=== PATIENT | male | born 1970 | race Caucasian/White ===

== ENCOUNTER → 2021-02-17 12:40 | Outpatient (CLI) | payer SELFPAY ==
[2021-02-16 16:34] VITALS: BMI 40.0
--- NOTE | 2021-02-17 12:41 | EKG12_ITS ---
Test Reason : PRE OP Blood Pressure : / mmHG Vent. Rate : 052 BPM Atrial Rate : 052 BPM P-R Int : 212 ms QRS Dur : 132 ms QT Int : 446 ms P-R-T Axes : 043 -20 032 degrees QTc Int : 414 ms Sinus bradycardia with 1st degree A-V block Non-specific intra-ventricular conduction block Abnormal ECG Confirmed by ALDAIR MARTINEZ, CASANDRA ([id number]), sports editor JOSÉ PUENTES ([id number]) on 02/21/2021 12:43:08 PM Referred By: Lupillo Gaytan Confirmed By:CASANDRA QUINTEROS MD
== END ==
PROVIDERS: PCP Nurse Practitioner Family; Referring Provider Nurse Practitioner Family; Visit Provider Nurse Practitioner Family
DX: I49.9 Cardiac arrhythmia, unspecified (principal)
CPT/HCPCS: 93005

== ENCOUNTER 2021-03-10 15:15 | Outpatient (RCR) | payer SELFPAY ==
[2021-02-10 13:59] VITALS: BP 160/82; PULSE 50; RESP 18; TEMP 36.1
--- NOTE | 2021-02-10 16:17 | HP.PCM_ITS ---
History of Present Illness Date of Service: 02/10/21 Chief Complaint: Diabetic foot ulcer left heel History of Wound: A 50-year-old white male with a past medical history of diabetes and hypertension who presents to the wound healing center today with complaint of a diabetic foot ulcer to his left heel present for the last 2 months. The patient initially went to the emergency department on 01/24/2021 at [facility] and had a CT of his foot done at that time which showed a soft tissue puncture wound in the heel with no soft tissue gas or radiopaque foreign body and no acute fracture. No lytic or blastic bony lesions seen. His blood work showed an elevated glucose of 244 and his CRP at the time was 0.80. He was placed on Keflex and Bactrim DS and was referred to primary care and or thopedics. He also had a wound culture done and 2 blood cultures which are not available for review at this time. Patient's other records are not available for review either by Dr. Johnson at [facility]. But apparently according to the patient he was given a offloading boot and was referred to wound center for further management. The patient states that he is tolerating his antibiotics well. He denies any systemic signs of infection at this time. The patient states that he follow-up with primary care but would like to consider switching primary care as they did not address his diabetes or place him on any diabetic medications. He is currently on no maintenance medications. Apparently his most recent A1c was 14.5. He does state that he has been utilizing a ointment and covering with gauze to the ulcer. He denies any other acute concerns at this time. Past medical, family, and social history reviewed and not pertinent to the current visit and all other systems reviewed and negative with exception of those listed above. [facility] Medical History (Updated 02/10/21 @ 16:26 by Lupillo Gaytan NP, [employer] PROCESSING [employer]PER[employer]OR-[employer]) Diabetes Diabetic ulcer of left foot HTN (hypertension) Uncontrolled type 2 diabetes mellitus no surgical history ROS Constitutional Constitutional: Reports systems reviewed and no addt'l complaints, except as documented Eyes Eyes: Reports systems reviewed and no addt'l complaints, except as documented ENT HEENT: Reports systems reviewed and no addt'l complaints, except as documented Cardiovascular Cardiovascular: Reports systems reviewed and no addt'l complaints, except as documented Respiratory/Chest Respiratory/Chest: Reports systems reviewed and no addt'l complaints, except as documented Gastrointestinal Gastrointestinal: Reports systems reviewed and no addt'l complaints, except as documented Genitourinary Genitourinary: Reports systems reviewed and no addt'l complaints, except as documented Musculoskeletal Musculoskeletal: Reports systems reviewed and no addt'l complaints, except as documented Integumentary Integumentary: Reports systems reviewed and no addt'l complaints, except as documented Neurologic Neurologic: Reports systems reviewed and no addt'l complaints, except as documented Psychiatric Psychiatric: Reports systems reviewed and no addt'l complaints, except as documented Endocrine Endocrinology: Reports systems reviewed and no addt'l complaints, except as documented Hematologic/Lymphatic Hematologic/Lymphatic: Reports systems reviewed and no addt'l complaints, except as documented Allergic/Immunologic Allergic/Immunologic: Reports systems reviewed and no addt'l complaints, except as documented Vital Signs Vital Signs Vital Signs: 02/10/21 13:59 Temperature 97.0 F L Temperature Source Temporal Pulse Rate 50 L Respiratory Rate 18 Blood Pressure 160/82 H Blood Pressure Mean 108 Blood Pressure Source Monitor Blood Pressure Position Sitting Blood Pressure Location Left Arm Oxygen Delivery Method Room Air Physical Exam Const alert, oriented x3, no apparent distress, healthy appearing and well nourished General Appearance: cooperative Exam Limitations: no limitations HEENT normocephalic HEENT Narrative: Rash present to forehead, chronic Head and Scalp: normal to inspection Mouth: oral and palatal mucosa normal Eyes General Eye: normal appearance of both eyes Resp normal respiratory effort, normal air movement and no use of accessory muscles Effort and Inspection: able to speak in complete sentences Auscultation: clear to auscultation bilaterally Cardio regular rate, regular rhythm, S1 normal heart sound, S2 normal heart sound, no murmurs and peripheral pulses 2+ throughout Palpation: normal PMI Rate: regular rate Heart Sounds: S1 normal and S2 normal GI normal to inspection, nondistended, normoactive bowel sounds, soft to palpation, non-tender and non-distended Palpation: soft Extremity normal to inspection and full ROM General Extremity: normal exam except as noted Skin Skin Narrative: Vera grade 2 diabetic foot ulcer to left heel with large amounts of callus and adherent slough, no signs of obvious infection at this time, no purulent drainage or redness or streaking, after debridement wound bed is beefy red and granular Neuro oriented x3 and moves all extremities Sensorium / Orientation: awake, alert, oriented to person, oriented to place and oriented to time Psych mental status grossly normal, thought process normal and denies hallucinations Appearance: grossly normal Attitude: calm Activity / Motor Behavior: appropriate eye contact Speech: normal speech Thought Process: normal thought process Thought Content: normal thought content Attention / Concentration: attention grossly intact Insight: insight good Judgement: judgement good Debridement Note Debridement Note Post-Debridement Measurements and Additional Note: Post-Debridement Measurements/Treatment - Nurse 1 - General Ulcer Assessment Start: 02/10/21 13:59 Freq: Status: Active Protocol: GENARO Activity Type Activity Date Activity User E-Sign Co-Sign Detail Recorded Client Recorded Date Recorded By Document 02/10/21 13:59 LA [id number] 02/10/21 14:17 LA 02/10/21 13:59 - Today's Visit Information Type of service Initial Visit Arrival Mode Ambulatory Accompanied by self Vital Signs Temperature (97.8 F-99.1 F) 97.0 F L Temperature Source Temporal Pulse Rate (60-100) 50 L Pulse Location Monitor Respiratory Rate (12-18) 18 Respiratory rate source Observation Oxygen Delivery Method Room Air Blood Pressure (90/60-120/80) 160/82 H Blood Pressure Mean 108 Source Monitor Position Sitting Blood Pressure Location Left Arm - Nurse 1 - General Ulcer Measurement Start: 02/10/21 13:59 Freq: Status: Active Protocol: Activity Type Activity Date Activity User E-Sign Co-Sign Detail Recorded Client Recorded Date Recorded By Document 02/10/21 13:59 LA [id number] 02/10/21 14:17 LA 02/10/21 13:59 Wound Center Nurse 1 #1 Left Heel -Current Size (cm) - Length 0.9 -Current Size (cm) - Width 1.0 -Current Size (cm) - Depth 0.3 -Total Square Cm 0.90 -Undermining/Tunneling Yes -Undermining/Tunneling Starts (O'clock 10 ) -Undermining/Tunneling Ends (O'clock) 8 -Maximum Distance (cm) 0.3 -Exudate Amt Medium -Exudate Type Serosanguineous -Wound Margin Thickened & Rolled Under -Granulation Amt Medium (34-66%) -Granulation Quality Pale,[place] -Necrosis Amt Medium (34-66%) -Necrotic Tissue Type Adherent Slough -Texture (Sandra-wound Skin Appearance) Assessed -Moisture (Sandra-wound Skin Appearance) Assessed -Color (Sandra-wound Skin Appearance) Assessed -Temperature (Sandra-wound Skin No Abnormality Appearance) (Pt Warm) -Tenderness on Palpation (Sandra-wound No Skin Appearance) -Ulcer Cleansing Rinsed/ Irrigated with Saline -Foul Odor after Cleansing No -Anesthetic Used 4% Lidocaine Solution Left Calf (cm) 40.5 Left Ankle (cm) 24 Additional Wound Wound debrided: Left diabetic foot ulcer of heel Laterality: Left Type of Debridement: Excisional debridement Anesthesia Used: 5% Lidocaine Gel Depth: Down to and including healthy tissue and in the subcutaneous layer Percentage of wound debrided: 100 Instrument Used: 5mm curette and #15 blade Tissue Removed: Callus, slough, and devitalized tissue Severity: Fat Layer Exposed Amount of bleeding with debridement: Mild Bleeding Controlled with: Pressure Patient tolerated procedure: Patient tolerated procedure well Lab / Micro Data Result Diagrams: 02/10/21 15:44 02/10/21 15:44 Charges/Coding Visit Charges Office Visits / Consults: 18903 OV L4 New Procedures Integumentary 111xxx-113xx: [id number] Beverley subq tissue 20 sq cm/< Assessment/Plan Assessment/Plan (1) Diabetic ulcer of left foot: CODE(S): E11.621 - Type 2 diabetes mellitus with foot ulcer; L97.529 - Non-pressure chronic ulcer of other part of left foot with unspecified severity (2) Uncontrolled type 2 diabetes mellitus: CODE(S): E11.65 - Type 2 diabetes mellitus with hyperglycemia (3) HTN (hypertension): CODE(S): I10 - Essential (primary) hypertension PLAN: Debridement performed today in clinic as annotated above. Moistened silver cell covered with gauze applied. At home wound-care instructions: Moistened silver cell cover with gauze and continue with CAM Walker for offloading. Change dressing once daily or more frequently as needed due to contamination. Wash wounds daily with antibacterial soap and water, rinse and dry thoroughly before each dressing change. Did discuss different offloading measures to consider as well. Compression: No compression needed at this time, hold off on vascular studies due to cost and patient not having insurance coverage Off-loading: The patient was instructed to avoid pressure and friction on the affected areas. Reposition every 2 hours at minimum. Avoid prolonged standing and/or dangling of legs. When seated, feet should be elevated at chest level. F requent ambulation is encouraged. Diet: Patient encouraged to increase protein intake while taking caution to avoid high carbohydrate and/or sugar intake. Labs/cultures/imaging: Cultures ordered and collected today. Routine baseline lab work ordered. Patient was given information to schedule with new primary care for management of his hypertension and diabetes. Follow-up: Return to clinic in 1 week for re-evaluation. Return sooner or report to the emergency room should symptoms worsen, or new symptoms arise. This note was generated with [employer] dictation software. It may contain incorrect words, spelling, and punctuation that were not noted in checking the note before signing. I have spent 55 minutes today reviewing labs, records, and history. Time includes coordinating care, interpretation of tests, and counseling the patient/family. This also includes time I spent with the patient for exam, treatment plan, and education as well as documenting clinical information in the electronic health record.
[2021-02-10 17:02] LABS: Erythrocyte Sedimentation Rate 25 mm/hr (0-20)
[2021-02-10 17:04] LABS: Absolute Lymphocyte Count 2.47 X10^3/uL (0.83-4.51); Absolute Neutrophil Count 3.3 X10^3/uL (2.0-7.7); Basophil# 0.04 X10^3/uL; Basophil% 0.6 % (0-1); Eosinophil# 0.12 X10^3/uL; Eosinophils% 1.9 % (0-5); Hematocrit 44.8 % (40-54); Hemoglobin 14.7 g/dL (13.0-16.5); Lymphocyte # 2.47 X10^3/ul (0.83-4.51); Lymphocyte % 39.1 % (19-41); Mean Corp Hgb Conc 32.8 g/dL (32-36); Mean Corpuscular Hgb 29.6 pg (27.0-32.0); Mean Corpuscular Volume 90.3 fL (80-94); Mean Platelet Vol. 10.4 fl (6.2-12.0); Monocyte# 0.38 X10^3/uL; NRBC Flagged by Analyzer 0 % (0-5); Neutrophil % 52.2 % (47-70); Platelet Count 263 K/mm3 (150-450); RBC Distribution Width CV 12.5 % (11.6-14.6); RBC Distribution Width SD 40.6 fl (35.1-43.9); Red Blood Count 4.96 M/mm3 (4.6-6.2); White Blood Count 6.3 K/mm3 (4.4-11.0)
[2021-02-10 17:06] LABS: ALB/GLOB Ratio 1.1 RATIO (0.9-2.4); AST(SGOT) 25 U/L (15-37); Alanine Aminotransfer ALT/SGPT 48 U/L (16-61); Albumin, Serum 3.9 g/dL (3.2-5.0); Alkaline Phosphatase 64 U/L (45-117); Anion Gap 11 (5-15); BUN 16 mg/dL (7-18); BUN/Creat Ratio 14.4 RATIO (10-20); CRP < 2.90 mg/L (0.0-3.0); Chloride 104 mmol/L (98-107); Creatinine, Serum 1.11 mg/dL (0.70-1.30); EST Glomerular Filtration Rate 75 mL/min (>60); Est Glom Filt Rate - Afr Amer 90 mL/min (>60); Globulin 3.7 g/dL (2.2-4.2); Glucose 102 mg/dL (74-106); Hemoglobin A1c 7.9 % (3.8-5.6); Potassium 3.8 mmol/L (3.5-5.1); Prealbumin 24.6 mg/dL (20.0-40.0); Protein, Total 7.6 g/dL (6.4-8.2); Sodium Level 139 mmol/L (136-145); Thyroid Stim Hormone (TSH) 1.99 uIU/mL (0.358-3.74)
[2021-02-10 17:09] LABS: Microalbumin,Random Urine 21.6 mg/L (NO RANGE EST.)
[2021-02-17 13:23] VITALS: BP 166/85; PULSE 55; RESP 16; TEMP 36.8
--- NOTE | 2021-02-17 20:19 | PCM.WC.PN ---
History of Present Illness Date of Service: 02/17/21 Chief Complaint: Diabetic foot ulcer left heel History of Wound: A 50-year-old white male with a past medical history of diabetes and hypertension who presents to the wound healing center today with complaint of a diabetic foot ulcer to his left heel present for the last 2 months. The patient initially went to the emergency department on 01/24/2021 at [facility] and had a CT of his foot done at that time which showed a soft tissue puncture wound in the heel with no soft tissue gas or radiopaque foreign body and no acute fracture. No lytic or blastic bony lesions seen. His blood work showed an elevated glucose of 244 and his CRP at the time was 0.80. He was placed on Keflex and Bactrim DS and was referred to primary care and orthopedics. He also had a wound culture done and 2 blood cultures which are not available for review at this time. Patient's other records are not available for review either by Dr. Johnson at [facility]. But apparently according to the patient he was given a offloading boot and was referred to wound center for further management. The patient states that he is tolerating his antibiotics well. He denies any systemic signs of infection at this time. The patient states that he follow-up with primary care but would like to consider switching primary care as they did not address his diabetes or place him on any diabetic medications. He is currently on no maintenance medications. Apparently his most recent A1c was 14.5. He does state that he has been utilizing a ointment and covering with gauze to the ulcer. He denies any other acute concerns at this time. Past medical, family, and social history reviewed and not pertinent to the current visit and all other systems reviewed and negative with exception of those listed above. Progress of Wound: Stable, does note improvement in the size of his wound. Wound cultures were reviewed and showed Alcaligenes Enterococcus and acinobacter which he was placed on ciprofloxacin, he has yet to start. Patient was also recently started on Metformin and lisinopril for his type 2 diabetes mellitus and his recent A1c was reviewed and was 7.9. Denies any systemic or localized signs of infection and is doing well with daily wound dressing changes. No new concerns. Objective Data Objective Data Vital Signs: Vital Signs Temp Pulse Resp BP 98.3 F 55 L 16 166/85 H 02/17/21 13:23 07/08/21 13:23 02/17/21 13:23 02/17/21 13:23 Oxygen Delivery Method Room Air Lab / Micro Data Result Diagrams: 02/10/21 15:44 02/10/21 15:44 Micro: Microbiology 02/10/21 14:40 Wound - Heel, Left Gram Stain - Final 02/10/21 14:40 Wound - Heel, Left Wound Culture - Final Alcaligenes faecalis ssp faeca Acinetobacter Lwoffi Enterococcus faecalis 02/10/21 14:40 Wound - Heel, Left Anaerobic Culture - Final No anaerobic bacteria isolated. Charges/Coding Procedures Integumentary 111xxx-113xx: [id number] Beverley subq tissue 20 sq cm/< Physical Exam Const alert, oriented x3, no apparent distress, healthy appearing and well nourished General Appearance: cooperative Exam Limitations: no limitations HEENT normocephalic HEENT Narrative: Rash present to forehead, chronic Head and Scalp: normal to inspection Mouth: oral and palatal mucosa normal Eyes General Eye: normal appearance of both eyes Resp normal respiratory effort, normal air movement and no use of accessory muscles Effort and Inspection: able to speak in complete sentences Auscultation: clear to auscultation bilaterally Cardio regular rate, regular rhythm, S1 normal heart sound, S2 normal heart sound, no murmurs and peripheral pulses 2+ throughout Palpation: normal PMI Rate: regular rate Heart Sounds: S1 normal and S2 normal GI normal to inspection, nondistended, normoactive bowel sounds, soft to palpation, non-tender and non-distended Palpation: soft Extremity normal to inspection and full ROM General Extremity: normal exam except as noted Skin Skin Narrative: Vera grade 2 diabetic foot ulcer to left heel with large amounts of callus and adherent slough, no signs of obvious infection at this time, no purulent drainage or redness or streaking, after debridement wound bed is beefy red and granular Neuro oriented x3 and moves all extremities Sensorium / Orientation: awake, alert, oriented to person, oriented to place and oriented to time Psych mental status grossly normal, thought process normal and denies hallucinations Appearance: grossly normal Attitude: calm Activity / Motor Behavior: appropriate eye contact Speech: normal speech Thought Process: normal thought process Thought Content: normal thought content Attention / Concentration: attention grossly intact Insight: insight good Judgement: judgement good Debridement Note Debridement Note Post-Debridement Measurements and Additional Note: Post-Debridement Measurements/Treatment - Nurse 1 - General Ulcer Assessment Start: 02/10/21 13:59 Freq: Status: Active Protocol: GENARO Activity Type Activity Date Activity User E-Sign Co-Sign Detail Recorded Client Recorded Date Recorded By Document 02/10/21 13:59 MT [id number] 02/10/21 14:17 MT Document 02/17/21 13:23 ML [id number] 02/17/21 13:30 ML 02/10/21 02/17/21 13:59 13:23 WC - Today's Visit Information Type of service Initial Visit 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 ) Arrival Mode Ambulatory Ambulatory Accompanied by self Patient Identification Verified (Name & Yes ) Patient Requires Transmission-Based No Precautions Safety Precautions NA Vital Signs Temperature (97.8 F-99.1 F) 97.0 F L 98.3 F Temperature Source Temporal Temporal Pulse Rate (60-100) 50 L 55 L Pulse Location Monitor Monitor Respiratory Rate (12-18) 18 16 Respiratory rate source Observation Observation Oxygen Delivery Method Room Air Blood Pressure (90/60-120/80) 160/82 H 166/85 H Blood Pressure Mean (mm Hg) 108 112 Source Monitor Monitor Position Sitting Sitting Blood Pressure Location Left Arm Right Arm History Since Last Visit- (Skip if this is Patient's initial visit) Have you changed medications since your No last visit? Any new allergies or adverse reactions No Had a fall/change in ADL's that may No increase risk of falls Signs or symptoms of abuse and/or No neglect since last visit Have you been in the hospital since your No last visit? Has dressing in place as prescribed Yes Has compression in place as prescribed N/A Has offloadiing in place as prescribed Yes Experienced any changes in pain level or No management Left Footwear Removable Cast Walker/Walking Boot Right Footwear Regular Shoe Pain Scale: 0-10 Numeric Is Patient Pain Free? Yes - Nurse 1 - General Ulcer Measurement Start: 02/10/21 13:59 Freq: Status: Active Protocol: Activity Type Activity Date Activity User E-Sign Co-Sign Detail Recorded Client Recorded Date Recorded By Document 02/10/21 13:59 MT [id number] 02/10/21 14:17 MT Document 02/17/21 13:23 ML [id number] 02/17/21 13:30 ML 02/10/21 02/17/21 13:59 13:23 Wound Center Nurse 1 #1 Left Heel -Current Size (cm) - Length 0.9 0.5 -Current Size (cm) - Width 1.0 0.8 -Current Size (cm) - Depth 0.3 0.3 -Total Square Cm 0.90 0.40 -Undermining/Tunneling Yes -Undermining/Tunneling Starts (O'clock 10 ) -Undermining/Tunneling Ends (O'clock) 8 -Maximum Distance (cm) 0.3 -Exudate Amt Medium Small -Exudate Type Serosanguineous Serosanguineous -Wound Margin Thickened & Distinct, Rolled Under Outline Attached -Granulation Amt Medium (34-66%) Small (1-33%) -Granulation Quality Pale,[place] -Slough/Fibrin No -Necrosis Amt Medium (34-66%) None Present (0 %) -Necrotic Tissue Type Adherent Slough -Texture (Sandra-wound Skin Appearance) Assessed Assessed -Moisture (Sandra-wound Skin Appearance) Assessed Assessed -Color (Sandra-wound Skin Appearance) Assessed Assessed -Temperature (Sandra-wound Skin No Abnormality No Abnormality Appearance) (Pt Warm) (Pt Warm) -Tenderness on Palpation (Sandra-wound No No Skin Appearance) -Ulcer Cleansing Rinsed/ Rinsed/ Irrigated with Irrigated with Saline Saline -Foul Odor after Cleansing No No -Anesthetic Used 4% Lidocaine 4% Lidocaine Solution Solution Left Calf (cm) 40.5 Left Ankle (cm) 24 WC - Nurse 2 - General Ulcer CM Notes Start: 02/10/21 13:59 Freq: Status: Active Protocol: Activity Type Activity Date Activity User E-Sign Co-Sign Detail Recorded Client Recorded Date Recorded By Document 02/10/21 16:31 PL [id number] 02/10/21 16:32 PL Document 02/17/21 16:13 PL [id number] 02/17/21 16:14 PL 02/10/21 02/17/21 16:31 16:13 Wound Center Nurse 2 #1 Left Heel -Time 14:35 13:36 -Correct Patient Yes Yes -Correct Side, Site, Position Yes Yes -Correct Procedure Yes Yes -Procedure Performed Yes Yes -Type of Procedure Debridement Debridement -Clinical Debridement Subcutaneous Subcutaneous -Tissue Removed Subcutaneous Subcutaneous -Post Debridement (cm) - Length 1.5 0.9 -Post Debridement (cm) - Width 1.5 1.0 -Post Debridement (cm) - Depth 0.8 0.5 -Total Square (Post) (cm) 2.25 0.90 -Area of Debridement (cm) - Length 1.5 0.9 -Area of Debridement (cm) - Width 1.5 1.0 -Total Square (Area) (cm) 2.25 0.90 -Tunneling No No -Undermining/Tunneling No No -Circular Undermining No No -Wound/Ulcer Outcome Not Healed Not Healed -Ulcer Cleansing Rinsed/ Rinsed/ Irrigated with Irrigated with Saline Saline -Foul Odor after Cleansing No No -Bioengineered Tissue No No -Debridement - Subq, 1st 20sq cm Yes Yes Pain Scale: 0-10 Numeric Is Patient Pain Free? Yes Yes Additional Wound Wound debrided: Left heel DFU Laterality: Left Type of Debridement: Excisional debridement Anesthesia Used: 5% Lidocaine Gel Depth: Down to and including healthy tissue and in the subcutaneous layer Percentage of wound debrided: 100 Instrument Used: 5mm curette Tissue Removed: slough and devitalized tissue Severity: Fat Layer Exposed Amount of bleeding with debridement: Mild Bleeding Controlled with: Pressure Patient tolerated procedure: Patient tolerated procedure well Assessment/Plan Assessment/Plan (1) Diabetic ulcer of left foot: CODE(S): E11.621 - Type 2 diabetes mellitus with foot ulcer; L97.529 - Non-pressure chronic ulcer of other part of left foot with unspecified severity (2) Uncontrolled type 2 diabetes mellitus: CODE(S): E11.65 - Type 2 diabetes mellitus with hyperglycemia (3) HTN (hypertension): CODE(S): I10 - Essential (primary) hypertension PLAN: Debridement performed today in clinic as annotated above. Moistened silver cell covered with gauze applied. At home wound-care instructions: Moistened silver cell cover with gauze and continue with CAM Walker for offloading. Change dressing once daily or more frequently as needed due to contamination. Wash wounds daily with antibacterial soap and water, rinse and dry thoroughly before each dressing change. Did discuss different offloading measures to consider as well. Compression: No compression needed at this time, hold off on vascular studies due to cost and patient not having insurance coverage Off-loading: The patient was instructed to avoid pressure and friction on the affected areas. Reposition every 2 hours at minimum. Avoid prolonged standing and/or dangling of legs. When seated, feet should be elevated at chest level. Frequent ambulation is encouraged. Diet: Patient encouraged to increase protein intake while taking caution to avoid high carbohydrate and/or sugar intake. Labs/cultures/imaging: Cultures ordered previously and patient started on cipro based on sensitivity. Routine baseline lab work pending. Patient was given information to schedule with new primary care for management of his hypertension and diabetes. Follow-up: Return to clinic in 1 week for re-evaluation. Return sooner or report to the emergency room should symptoms worsen, or new symptoms arise. This note was generated with [employer] dictation software. It may contain incorrect words, spelling, and punctuation that were not noted in checking the note before signing. I have spent 55 minutes today reviewing labs, records, and history. Time includes coordinating care, interpretation of tests, and counseling the patient/family. This also includes time I spent with the patient for exam, treatment plan, and education as well as documenting clinical information in the electronic health record.
[2021-02-24 13:49] VITALS: BP 146/66; PULSE 60; TEMP 35.7
--- NOTE | 2021-02-24 16:25 | PN.PCM_ITS ---
History of Present Illness Date of Service: 02/24/21 Chief Complaint: Diabetic foot ulcer left heel History of Wound: A 50-year-old white male with a past medical history of diabetes and hypertension who presents to the wound healing center today with complaint of a diabetic foot ulcer to his left heel present for the last 2 months. The patient initially went to the emergency department on 01/24/2021 at [facility] and had a CT of his foot done at that time which showed a soft tissue puncture wound in the heel with no soft tissue gas or radiopaque foreign body and no acute fracture. No lytic or blastic bony lesions seen. His blood work showed an elevated glucose of 244 and his CRP at the time was 0.80. He was placed on Keflex and Bactrim DS and was referred to primary care and or thopedi. He also had a wound culture done and 2 blood cultures which are not available for review at this time. Patient's other records are not available for review either by Dr. Johnson at [facility]. But apparently according to the patient he was given a offloading boot and was referred to wound center for further management. The patient states that he is tolerating his antibiotics well. He denies any systemic signs of infection at this time. The patient states that he follow-up with primary care but would like to consider switching primary care as they did not address his diabetes or place him on any diabetic medications. He is currently on no maintenance medications. Apparently his most recent A1c was 14.5. He does state that he has been utilizing a ointment and covering with gauze to the ulcer. He denies any other acute concerns at this time. Past medical, family, and social history reviewed and not pertinent to the current visit and all other systems reviewed and negative with exception of those listed above. Progress of Wound: Stable, does note improvement in the size of his wound. Wound cultures were reviewed and showed Alcaligenes Enterococcus and acinobacter which he was placed on ciprofloxacin, which he is tolerating, patient was also recently started on Metformin and lisinopril for his type 2 diabetes mellitus and his recent A1c was reviewed and was 7.9. Denies any systemic or localized signs of infection and is doing well with daily wound dressing changes. No new concerns. Objective Data Objective Data Vital Signs: Vital Signs Temp Pulse Resp BP 96.3 F L 60 16 146/66 H 02/24/21 13:49 02/24/21 13:49 02/17/21 13:23 02/24/21 13:49 Oxygen Delivery Method Room Air Lab / Micro Data Result Diagrams: 02/10/21 15:44 02/10/21 15:44 Micro: Microbiology 02/10/21 14:40 Wound - Heel, Left Gram Stain - Final 02/10/21 14:40 Wound - Heel, Left Wound Culture - Final Alcaligenes faecalis ssp faeca Acinetobacter Lwoffi Enterococcus faecalis 02/10/21 14:40 Wound - Heel, Left Anaerobic Culture - Final No anaerobic bacteria isolated. Charges/Coding Procedures Integumentary 111xxx-113xx: [id number] Beverley subq tissue 20 sq cm/< Physical Exam Const alert, oriented x3, no apparent distress, healthy appearing and well nourished General Appearance: cooperative Exam Limitations: no limitations HEENT normocephalic HEENT Narrative: Rash present to forehead, chronic Head and Scalp: normal to inspection Mouth: oral and palatal mucosa normal Eyes General Eye: normal appearance of both eyes Resp normal respiratory effort, normal air movement and no use of accessory muscles Effort and Inspection: able to speak in complete sentences Auscultation: clear to auscultation bilaterally Cardio regular rate, regular rhythm, S1 normal heart sound, S2 normal heart sound, no murmurs and peripheral pulses 2+ throughout Palpation: normal PMI Rate: regular rate Heart Sounds: S1 normal and S2 normal GI normal to inspection, nondistended, normoactive bowel sounds, soft to palpation, non-tender and non-distended Palpation: soft Extremity normal to inspection and full ROM General Extremity: normal exam except as noted Skin Skin Narrative: Vera grade 2 diabetic foot ulcer to left heel with large amounts of callus and adherent slough, no signs of obvious infection at this time, no purulent drainage or redness or streaking, after debridement wound bed is beefy red and granular Neuro oriented x3 and moves all extremities Sensorium / Orientation: awake, alert, oriented to person, oriented to place and oriented to time Psych mental status grossly normal, thought process normal and denies hallucinations Appearance: grossly normal Attitude: calm Activity / Motor Behavior: appropriate eye contact Speech: normal speech Thought Process: normal thought process Thought Content: normal thought content Attention / Concentration: attention grossly intact Insight: insight good Judgement: judgement good Debridement Note Debridement Note Post-Debridement Measurements and Additional Note: Post-Debridement Measurements/Treatment - Nurse 1 - General Ulcer Assessment Start: 02/10/21 13:59 Freq: Status: Active Protocol: GENARO Activity Type Activity Date Activity User E-Sign Co-Sign Detail Recorded Client Recorded Date Recorded By Document 02/10/21 13:59 MT [id number] 02/10/21 14:17 MT Document 02/17/21 13:23 ML [id number] 02/17/21 13:30 ML Document 02/24/21 13:49 KR [id number] 02/24/21 13:55 KR 02/10/21 02/17/21 02/24/21 13:59 13:23 13:49 - Today's Visit Information Type of service Initial Visit Follow-up Visit Follow-up Visit (Physician/[employer]ARD[employer] (Physician/STEWARD[employer] ) ) Arrival Mode Ambulatory Ambulatory Ambulatory Accompanied by self Patient Identification Verified (Name & Yes Yes ) Patient Requires Transmission-Based No Precautions Safety Precautions NA Vital Signs Temperature (97.8 F-99.1 F) 97.0 F L 98.3 F 96.3 F L Temperature Source Temporal Temporal Temporal Pulse Rate (60-100) 50 L 55 L 60 Pulse Location Monitor Monitor Monitor Respiratory Rate (12-18) 18 16 Respiratory rate source Observation Observation Oxygen Delivery Method Room Air Blood Pressure (90/60-120/80) 160/82 H 166/85 H 146/66 H Blood Pressure Mean (mm Hg) 108 112 92 Source Monitor Monitor Monitor Position Sitting Sitting Semi-Fowlers Blood Pressure Location Left Arm Right Arm Right Arm History Since Last Visit- (Skip if this is Patient's initial visit) Have you changed medications since your No No last visit? Any new allergies or adverse reactions No No Had a fall/change in ADL's that may No No increase risk of falls Signs or symptoms of abuse and/or No No neglect since last visit Have you been in the hospital since your No No last visit? Has dressing in place as prescribed Yes No Has compression in place as prescribed N/A N/A Has offloadiing in place as prescribed Yes N/A Experienced any changes in pain level or No No management Left Footwear Removable Cast Surgical Shoe Walker/Walking with pressure Boot relief insole Right Footwear Regular Shoe Regular Shoe Pain Scale: 0-10 Numeric Is Patient Pain Free? Yes No - Nurse 1 - General Ulcer Measurement Start: 02/10/21 13:59 Freq: Status: Active Protocol: Activity Type Activity Date Activity User E-Sign Co-Sign Detail Recorded Client Recorded Date Recorded By Document 02/10/21 13:59 MT [id number] 02/10/21 14:17 MT Document 02/17/21 13:23 ML [id number] 02/17/21 13:30 ML Document 02/24/21 13:49 KR [id number] 02/24/21 13:55 KR 02/10/21 02/17/21 02/24/21 13:59 13:23 13:49 Wound Center Nurse 1 #1 Left Heel -Current Size (cm) - Length 0.9 0.5 0.6 -Current Size (cm) - Width 1.0 0.8 1.1 -Current Size (cm) - Depth 0.3 0.3 0.2 -Total Square Cm 0.90 0.40 0.66 -Undermining/Tunneling Yes -Undermining/Tunneling Starts (O'clock 10 ) -Undermining/Tunneling Ends (O'clock) 8 -Maximum Distance (cm) 0.3 -Exudate Amt Medium Small Small -Exudate Type Serosanguineous Serosanguineous Serosanguineous -Wound Margin Thickened & Distinct, Distinct, Rolled Under Outline Outline Attached Attached -Granulation Amt Medium (34-66%) Small (1-33%) Small (1-33%) -Granulation Quality Pale,[place] Red -Slough/Fibrin No -Necrosis Amt Medium (34-66%) None Present (0 Small (1-33%) %) -Necrotic Tissue Type Adherent Slough Adherent Slough -Texture (Sandra-wound Skin Appearance) Assessed Assessed Assessed, Scarring -Moisture (Sandra-wound Skin Appearance) Assessed Assessed No Abnormality, Assessed -Color (Sandra-wound Skin Appearance) Assessed Assessed No Abnormality, Assessed -Temperature (Sandra-wound Skin No Abnormality No Abnormality No Abnormality Appearance) (Pt Warm) (Pt Warm) (Pt Warm) -Tenderness on Palpation (Sandra-wound No No No Skin Appearance) -Ulcer Cleansing Rinsed/ Rinsed/ Rinsed/ Irrigated with Irrigated with Irrigated with Saline Saline Saline -Foul Odor after Cleansing No No No -Anesthetic Used 4% Lidocaine 4% Lidocaine 5% Lidocaine Solution Solution Gel Left Calf (cm) 40.5 Left Ankle (cm) 24 WC - Nurse 2 - General Ulcer CM Notes Start: 02/10/21 13:59 Freq: Status: Active Protocol: Activity Type Activity Date Activity User E-Sign Co-Sign Detail Recorded Client Recorded Date Recorded By Document 02/10/21 16:31 PL [id number] 02/10/21 16:32 PL Document 02/17/21 16:13 PL [id number] 02/17/21 16:14 PL Document 02/24/21 16:18 PL [id number] 02/24/21 16:23 PL 02/10/21 02/17/21 02/24/21 16:31 16:13 16:18 Wound Center Nurse 2 #1 Left Heel -Time 14:35 13:36 14:23 -Correct Patient Yes Yes Yes -Correct Side, Site, Position Yes Yes Yes -Correct Procedure Yes Yes Yes -Procedure Performed Yes Yes Yes -Type of Procedure Debridement Debridement Debridement -Clinical Debridement Subcutaneous Subcutaneous Subcutaneous -Tissue Removed Subcutaneous Subcutaneous Subcutaneous -Post Debridement (cm) - Length 1.5 0.9 0.7 -Post Debridement (cm) - Width 1.5 1.0 0.7 -Post Debridement (cm) - Depth 0.8 0.5 0.5 -Total Square (Post) (cm) 2.25 0.90 0.49 -Area of Debridement (cm) - Length 1.5 0.9 0.7 -Area of Debridement (cm) - Width 1.5 1.0 0.7 -Total Square (Area) (cm) 2.25 0.90 0.49 -Tunneling No No No -Undermining/Tunneling No No No -Circular Undermining No No No -Wound/Ulcer Outcome Not Healed Not Healed Not Healed -Ulcer Cleansing Rinsed/ Rinsed/ Rinsed/ Irrigated with Irrigated with Irrigated with Saline Saline Saline -Foul Odor after Cleansing No No No -Bioengineered Tissue No No No -Bleeding Controlled with Pressure -Treatment Response Procedure Tolerated Well -Debridement - Subq, 1st 20sq cm Yes Yes Yes Pain Scale: 0-10 Numeric Is Patient Pain Free? Yes Yes Yes WC - Nurse 3 - General Ulcer D/C NN Start: 02/10/21 13:59 Freq: Status: Active Protocol: Activity Type Activity Date Activity User E-Sign Co-Sign Detail Recorded Client Recorded Date Recorded By Document 02/24/21 14:30 ML [id number] 02/24/21 14:31 ML 02/24/21 14:30 Wound Care Nurse 3 #1 Left Heel -Ulcer Cleansing Rinsed/ Irrigated with Saline -Foul Odor after Cleansing No -Primary Dressing Applied Silvercel -Primary Dressing Covered/Secured with Dry Gauze & Roll Gauze, Secured with Tape -Silvercel 1 Additional Wound Wound debrided: Diabetic foot ulcer left heel Laterality: Left Type of Debridement: Excisional debridement Anesthesia Used: 5% Lidocaine Gel Depth: Down to and including healthy tissue and in the subcutaneous layer Percentage of wound debrided: 100 Instrument Used: 3mm curette Tissue Removed: Slough and devitalized tissue Severity: Fat Layer Exposed Amount of bleeding with debridement: Mild Bleeding Controlled with: Pressure Patient tolerated procedure: Patient tolerated procedure well Assessment/Plan Assessment/Plan (1) Diabetic ulcer of left foot: CODE(S): E11.621 - Type 2 diabetes mellitus with foot ulcer; L97.529 - Non-pressure chronic ulcer of other part of left foot with unspecified severity (2) Uncontrolled type 2 diabetes mellitus: CODE(S): E11.65 - Type 2 diabetes mellitus with hyperglycemia (3) HTN (hypertension): CODE(S): I10 - Essential (primary) hypertension PLAN: Debridement performed today in clinic as annotated above. Moistened silver cell covered with gauze applied. At home wound-care instructions: Moistened silver cell cover with gauze and continue with CAM Walker for offloading. Change dressing once daily or more frequently as needed due to contamination. Wash wounds daily with antibacterial soap and water, rinse and dry thoroughly before each dressing change. Did discuss different offloading measures to consider as well. Compression: No compression needed at this time, hold off on vascular studies due to cost and patient not having insurance coverage Off-loading: The patient was instructed to avoid pressure and friction on the affected areas. Reposition every 2 hours at minimum. Avoid prolonged standing and/or dangling of legs. When seated, feet should be elevated at chest level. Frequent ambulation is encouraged. Diet: Patient encouraged to increase protein intake while taking caution to avoid high carbohydrate and/or sugar intake. Labs/cultures/imaging: Cultures ordered previously and patient started on cipro based on sensitivity. Routine baseline lab work pending. Patient was given information to schedule with new primary care for management of his hypertension and diabetes. Follow-up: Return to clinic in 1 week for re-evaluation. Return sooner or report to the emergency room should symptoms worsen, or new symptoms arise. This note was generated with [employer] dictation software. It may contain incorrect words, spelling, and punctuation that were not noted in checking the note before signing. I have spent 55 minutes today reviewing labs, records, and history. Time includes coordinating care, interpretation of tests, and counseling the patient/family. This also includes time I spent with the patient for exam, treatment plan, and education as well as documenting clinical information in the electronic health record.
[2021-03-03 15:36] VITALS: BP 155/70; PULSE 57; RESP 16; TEMP 36.2
--- NOTE | 2021-03-03 19:37 | PCM.WC.PN ---
History of Present Illness Date of Service: 03/03/21 Chief Complaint: Diabetic foot ulcer left heel History of Wound: A 50-year-old white male with a past medical history of diabetes and hypertension who presents to the wound healing center today with complaint of a diabetic foot ulcer to his left heel present for the last 2 months. The patient initially went to the emergency department on 01/24/2021 at [facility] and had a CT of his foot done at that time which showed a soft tissue puncture wound in the heel with no soft tissue gas or radiopaque foreign body and no acute fracture. No lytic or blastic bony lesions seen. His blood work showed an elevated glucose of 244 and his CRP at the time was 0.80. He was placed on Keflex and Bactrim DS and was referred to primary care and orthopedics. He also had a wound culture done and 2 blood cultures which are not available for review at this time. Patient's other records are not available for review either by Dr. Johnson at [facility]. But apparently according to the patient he was given a offloading boot and was referred to wound center for further management. The patient states that he is tolerating his antibiotics well. He denies any systemic signs of infection at this time. The patient states that he follow-up with primary care but would like to consider switching primary care as they did not address his diabetes or place him on any diabetic medications. He is currently on no maintenance medications. Apparently his most recent A1c was 14.5. He does state that he has been utilizing a ointment and covering with gauze to the ulcer. He denies any other acute concerns at this time. Past medical, family, and social history reviewed and not pertinent to the current visit and all other systems reviewed and negative with exception of those listed above. Progress of Wound: Stable, does note improvement in the size of his wound. Wound cultures were reviewed and showed Alcaligenes Enterococcus and acinobacter which he was placed on ciprofloxacin, which he is tolerating, patient was also recently started on Metformin and lisinopril for his type 2 diabetes mellitus and his recent A1c was reviewed and was 7.9. Denies any systemic or localized signs of infection and is doing well with daily wound dressing changes. No new concerns. Objective Data Objective Data Vital Signs: Vital Signs Temp Pulse Resp BP 97.1 F L 57 L 16 155/70 H 03/03/21 15:36 03/03/21 15:36 03/03/21 15:36 03/03/21 15:36 Oxygen Delivery Method Room Air Lab / Micro Data Result Diagrams: 02/10/21 15:44 02/10/21 15:44 Micro: Microbiology 02/10/21 14:40 Wound - Heel, Left Gram Stain - Final 02/10/21 14:40 Wound - Heel, Left Wound Culture - Final Alcaligenes faecalis ssp faeca Acinetobacter Lwoffi Enterococcus faecalis 02/10/21 14:40 Wound - Heel, Left Anaerobic Culture - Final No anaerobic bacteria isolated. Charges/Coding Procedures Integumentary [id number]: [id number] Beverley subq tissue 20 sq cm/< Physical Exam Const alert, oriented x3, no apparent distress, healthy appearing and well nourished General Appearance: cooperative Exam Limitations: no limitations HEENT normocephalic HEENT Narrative: Rash present to forehead, chronic Head and Scalp: normal to inspection Mouth: oral and palatal mucosa normal Eyes General Eye: normal appearance of both eyes Resp normal respiratory effort, normal air movement and no use of accessory muscles Effort and Inspection: able to speak in complete sentences Auscultation: clear to auscultation bilaterally Cardio regular rate, regular rhythm, S1 normal heart sound, S2 normal heart sound, no murmurs and peripheral pulses 2+ throughout Palpation: normal PMI Rate: regular rate Heart Sounds: S1 normal and S2 normal GI normal to inspection, nondistended, normoactive bowel sounds, soft to palpation, non-tender and non-distended Palpation: soft Extremity normal to inspection and full ROM General Extremity: normal exam except as noted Skin Skin Narrative: Vera grade 2 diabetic foot ulcer to left heel with large amounts of callus and adherent slough, no signs of obvious infection at this time, no purulent drainage or redness or streaking, after debridement wound bed is beefy red and granular Neuro oriented x3 and moves all extremities Sensorium / Orientation: awake, alert, oriented to person, oriented to place and oriented to time Psych mental status grossly normal, thought process normal and denies hallucinations Appearance: grossly normal Attitude: calm Activity / Motor Behavior: appropriate eye contact Speech: normal speech Thought Process: normal thought process Thought Content: normal thought content Attention / Concentration: attention grossly intact Insight: insight good Judgement: judgement good Debridement Note Debridement Note Post-Debridement Measurements and Additional Note: Post-Debridement Measurements/Treatment WC - Nurse 1 - General Ulcer Assessment Start: 02/10/21 13:59 Freq: Status: Active Protocol: GENARO Activity Type Activity Date Activity User E-Sign Co-Sign Detail Recorded Client Recorded Date Recorded By Document 02/10/21 13:59 MT [id number] 02/10/21 14:17 MT Document 02/17/21 13:23 ML [id number] 02/17/21 13:30 ML Document 02/24/21 13:49 KR [id number] 02/24/21 13:55 KR Document 03/03/21 15:36 ML Desktop 03/03/21 15:44 ML 02/10/21 02/17/21 02/24/21 13:59 13:23 13:49 WC - Today's Visit Information Type of service Initial Visit Follow-up Visit Follow-up Visit (Physician/HOSPICE TEAM LEAD (Physician/HOSPICE TEAM LEAD ) ) Arrival Mode Ambulatory Ambulatory Ambulatory Transfer Assistance Accompanied by self Patient Identification Verified (Name & Yes Yes ) Patient Requires Transmission-Based No Precautions Safety Precautions NA Vital Signs Temperature (97.8 F-99.1 F) 97.0 F L 98.3 F 96.3 F L Temperature Source Temporal Temporal Temporal Pulse Rate (60-100) 50 L 55 L 60 Pulse Location Monitor Monitor Monitor Respiratory Rate (12-18) 18 16 Respiratory rate source Observation Observation Oxygen Delivery Method Room Air Blood Pressure (90/60-120/80) 160/82 H 166/85 H 146/66 H Blood Pressure Mean (mm Hg) 108 112 92 Source Monitor Monitor Monitor Position Sitting Sitting Semi-Fowlers Blood Pressure Location Left Arm Right Arm Right Arm History Since Last Visit- (Skip if this is Patient's initial visit) Have you changed medications since your No No last visit? Any new allergies or adverse reactions No No Had a fall/change in ADL's that may No No increase risk of falls Signs or symptoms of abuse and/or No No neglect since last visit Have you been in the hospital since your No No last visit? Has dressing in place as prescribed Yes No Has compression in place as prescribed N/A N/A Has offloadiing in place as prescribed Yes N/A Experienced any changes in pain level or No No management Left Footwear Removable Cast Surgical Shoe Walker/Walking with pressure Boot relief insole Right Footwear Regular Shoe Regular Shoe Pain Scale: 0-10 Numeric Is Patient Pain Free? Yes No 03/03/21 15:36 WC - Today's Visit Information Type of service Follow-up Visit (Physician/HOSPICE TEAM LEAD ) Arrival Mode Ambulatory Transfer Assistance None Accompanied by Patient Identification Verified (Name & Yes ) Patient Requires Transmission-Based No Precautions Safety Precautions NA Vital Signs Temperature (97.8 F-99.1 F) 97.1 F L Temperature Source Temporal Pulse Rate (60-100) 57 L Pulse Location Monitor Respiratory Rate (12-18) 16 Respiratory rate source Observation Oxygen Delivery Method Blood Pressure (90/60-120/80) 155/70 H Blood Pressure Mean (mm Hg) 98 Source Monitor Position Sitting Blood Pressure Location Left Arm History Since Last Visit- (Skip if this is Patient's initial visit) Have you changed medications since your No last visit? Any new allergies or adverse reactions No Had a fall/change in ADL's that may No increase risk of falls Signs or symptoms of abuse and/or No neglect since last visit Have you been in the hospital since your No last visit? Has dressing in place as prescribed Yes Has compression in place as prescribed N/A Has offloadiing in place as prescribed N/A Experienced any changes in pain level or Yes management Left Footwear Surgical Shoe with pressure relief insole Right Footwear Regular Shoe Pain Scale: 0-10 Numeric Is Patient Pain Free? Yes - Nurse 1 - General Ulcer Measurement Start: 02/10/21 13:59 Freq: Status: Active Protocol: Activity Type Activity Date Activity User E-Sign Co-Sign Detail Recorded Client Recorded Date Recorded By Document 02/10/21 13:59 MT [id number] 02/10/21 14:17 MT Document 02/17/21 13:23 ML [id number] 02/17/21 13:30 ML Document 02/24/21 13:49 KR [id number] 02/24/21 13:55 KR Document 03/03/21 15:36 ML Desktop 03/03/21 15:44 ML 02/10/21 02/17/21 02/24/21 13:59 13:23 13:49 Wound Center Nurse 1 #1 Left Heel -Current Size (cm) - Length 0.9 0.5 0.6 -Current Size (cm) - Width 1.0 0.8 1.1 -Current Size (cm) - Depth 0.3 0.3 0.2 -Total Square Cm 0.90 0.40 0.66 -Undermining/Tunneling Yes -Undermining/Tunneling Starts (O'clock 10 ) -Undermining/Tunneling Ends (O'clock) 8 -Maximum Distance (cm) 0.3 -Exudate Amt Medium Small Small -Exudate Type Serosanguineous Serosanguineous Serosanguineous -Wound Margin Thickened & Distinct, Distinct, Rolled Under Outline Outline Attached Attached -Granulation Amt Medium (34-66%) Small (1-33%) Small (1-33%) -Granulation Quality Pale,Tomales Red -Slough/Fibrin No -Necrosis Amt Medium (34-66%) None Present (0 Small (1-33%) %) -Necrotic Tissue Type Adherent Slough Adherent Slough -Texture (Sandra-wound Skin Appearance) Assessed Assessed Assessed, Scarring -Moisture (Sandra-wound Skin Appearance) Assessed Assessed No Abnormality, Assessed -Color (Sandra-wound Skin Appearance) Assessed Assessed No Abnormality, Assessed -Temperature (Sandra-wound Skin No Abnormality No Abnormality No Abnormality Appearance) (Pt Warm) (Pt Warm) (Pt Warm) -Tenderness on Palpation (Sandra-wound No No No Skin Appearance) -Ulcer Cleansing Rinsed/ Rinsed/ Rinsed/ Irrigated with Irrigated with Irrigated with Saline Saline Saline -Foul Odor after Cleansing No No No -Anesthetic Used 4% Lidocaine 4% Lidocaine 5% Lidocaine Solution Solution Gel Left Calf (cm) 40.5 Left Ankle (cm) 24 03/03/21 15:36 Wound Center Nurse 1 #1 Left Heel -Current Size (cm) - Length 0.5 -Current Size (cm) - Width 0.5 -Current Size (cm) - Depth 0.1 -Total Square Cm 0.25 -Undermining/Tunneling -Undermining/Tunneling Starts (O'clock ) -Undermining/Tunneling Ends (O'clock) -Maximum Distance (cm) -Exudate Amt Small -Exudate Type Serosanguineous -Wound Margin Distinct, Outline Attached -Granulation Amt Medium (34-66%) -Granulation Quality -Slough/Fibrin -Necrosis Amt Medium (34-66%) -Necrotic Tissue Type Adherent Slough -Texture (Sandra-wound Skin Appearance) Assessed -Moisture (Sandra-wound Skin Appearance) Dry/Scaly -Color (Sandra-wound Skin Appearance) Assessed -Temperature (Sandra-wound Skin No Abnormality Appearance) (Pt Warm) -Tenderness on Palpation (Sandra-wound No Skin Appearance) -Ulcer Cleansing Rinsed/ Irrigated with Saline -Foul Odor after Cleansing No -Anesthetic Used 4% Lidocaine Solution Left Calf (cm) Left Ankle (cm) WC - Nurse 2 - General Ulcer CM Notes Start: 02/10/21 13:59 Freq: Status: Active Protocol: Activity Type Activity Date Activity User E-Sign Co-Sign Detail Recorded Client Recorded Date Recorded By Document 02/10/21 16:31 PL [id number] 02/10/21 16:32 PL Document 02/17/21 16:13 PL [id number] 02/17/21 16:14 PL Document 02/24/21 16:18 PL [id number] 02/24/21 16:23 PL Document 03/03/21 16:09 MW Desktop 03/03/21 16:11 MW 02/10/21 02/17/21 02/24/21 16:31 16:13 16:18 Wound Center Nurse 2 #1 Left Heel -Time 14:35 13:36 14:23 -Correct Patient Yes Yes Yes -Correct Side, Site, Position Yes Yes Yes -Correct Procedure Yes Yes Yes -Procedure Performed Yes Yes Yes -Type of Procedure Debridement Debridement Debridement -Clinical Debridement Subcutaneous Subcutaneous Subcutaneous -Tissue Removed Subcutaneous Subcutaneous Subcutaneous -Post Debridement (cm) - Length 1.5 0.9 0.7 -Post Debridement (cm) - Width 1.5 1.0 0.7 -Post Debridement (cm) - Depth 0.8 0.5 0.5 -Total Square (Post) (cm) 2.25 0.90 0.49 -Area of Debridement (cm) - Length 1.5 0.9 0.7 -Area of Debridement (cm) - Width 1.5 1.0 0.7 -Total Square (Area) (cm) 2.25 0.90 0.49 -Tunneling No No No -Undermining/Tunneling No No No -Circular Undermining No No No -Wound/Ulcer Outcome Not Healed Not Healed Not Healed -Ulcer Cleansing Rinsed/ Rinsed/ Rinsed/ Irrigated with Irrigated with Irrigated with Saline Saline Saline -Foul Odor after Cleansing No No No -Bioengineered Tissue No No No -Bleeding Controlled with Pressure -Offloading -Treatment Response Procedure Tolerated Well -Debridement - Subq, 1st 20sq cm Yes Yes Yes Pain Scale: 0-10 Numeric Is Patient Pain Free? Yes Yes Yes 03/03/21 16:09 Wound Center Nurse 2 #1 Left Heel -Time 16:09 -Correct Patient Yes -Correct Side, Site, Position Yes -Correct Procedure Yes -Procedure Performed Yes -Type of Procedure Debridement -Clinical Debridement Subcutaneous -Tissue Removed Subcutaneous -Post Debridement (cm) - Length 0.6 -Post Debridement (cm) - Width 0.5 -Post Debridement (cm) - Depth 0.5 -Total Square (Post) (cm) 0.30 -Area of Debridement (cm) - Length 0.6 -Area of Debridement (cm) - Width 0.5 -Total Square (Area) (cm) 0.30 -Tunneling No -Undermining/Tunneling No -Circular Undermining No -Wound/Ulcer Outcome Not Healed -Ulcer Cleansing Rinsed/ Irrigated with Saline -Foul Odor after Cleansing No -Bioengineered Tissue No -Bleeding Controlled with Pressure -Offloading No -Treatment Response Procedure Tolerated Well -Debridement - Subq, 1st 20sq cm Yes Pain Scale: 0-10 Numeric Is Patient Pain Free? Yes - Nurse 3 - General Ulcer D/C NN Start: 02/10/21 13:59 Freq: Status: Active Protocol: Activity Type Activity Date Activity User E-Sign Co-Sign Detail Recorded Client Recorded Date Recorded By Document 02/24/21 14:30 ML [id number] 02/24/21 14:31 ML Document 03/03/21 16:11 MW Desktop 03/03/21 16:12 MW 02/24/21 03/03/21 14:30 16:11 Wound Care Nurse 3 #1 Left Heel -Ulcer Cleansing Rinsed/ Rinsed/ Irrigated with Irrigated with Saline Saline -Foul Odor after Cleansing No No -Negative Pressure Wound Therapy N/A -Primary Dressing Applied Silvercel Aquacel Extra -Primary Dressing Covered/Secured with Dry Gauze & Dry Gauze & Roll Gauze, Roll Gauze, Secured with Secured with Tape Tape -Other Covering abd pad -Aquacel Extra 1 -Silvercel 1 Treatment Response Procedure Tolerated Well Pain Scale: 0-10 Numeric Is Patient Pain Free? Yes Teaching: Wound Center Dressing Your Wound -Person Taught Patient -Teaching Method Discussion -Response to teaching Verbalize understanding WC - Visit Discharge Discharge Condition Stable Ambulatory Status Ambulatory Transportation Private Auto Accompanied by self Medication Reconcilliation completed & No provided to patient/care provider Clinical Summary of Care Provided Yes Additional Wound Wound debrided: Left heel DFU Laterality: Left Type of Debridement: Excisional debridement Anesthesia Used: 5% Lidocaine Gel Depth: Down to and including healthy tissue and in the subcutaneous layer Percentage of wound debrided: 100 Instrument Used: 5mm curette Tissue Removed: slough and devitalized tissue Severity: Fat Layer Exposed Amount of bleeding with debridement: Mild Bleeding Controlled with: Pressure and Compression and gauze Patient tolerated procedure: Patient tolerated procedure well Assessment/Plan Assessment/Plan (1) Diabetic ulcer of left foot: CODE(S): E11.621 - Type 2 diabetes mellitus with foot ulcer; L97.529 - Non-pressure chronic ulcer of other part of left foot with unspecified severity (2) Uncontrolled type 2 diabetes mellitus: CODE(S): E11.65 - Type 2 diabetes mellitus with hyperglycemia (3) HTN (hypertension): CODE(S): I10 - Essential (primary) hypertension PLAN: Debridement performed today in clinic as annotated above. Moistened silver cell covered with gauze applied. At home wound-care instructions: Moistened silver cell cover with gauze and continue with CAM Walker for offloading. Change dressing once daily or more frequently as needed due to contamination. Wash wounds daily with antibacterial soap and water, rinse and dry thoroughly before each dressing change. Did discuss different offloading measures to consider as well. Compression: No compression needed at this time, hold off on vascular studies due to cost and patient not having insurance coverage Off-loading: The patient was instructed to avoid pressure and friction on the affected areas. Reposition every 2 hours at minimum. Avoid prolonged standing and/or dangling of legs. When seated, feet should be elevated at chest level. Frequent ambulation is encouraged. Diet: Patient encouraged to increase protein intake while taking caution to avoid high carbohydrate and/or sugar intake. Labs/cultures/imaging: Cultures ordered previously and patient started on cipro based on sensitivity. Routine baseline lab work pending. Patient was given information to schedule with new primary care for management of his hypertension and diabetes. Follow-up: Return to clinic in 1 week for re-evaluation. Return sooner or report to the emergency room should symptoms worsen, or new symptoms arise. This note was generated with [email or web address] dictation software. It may contain incorrect words, spelling, and punctuation that were not noted in checking the note before signing. I have spent 55 minutes today reviewing labs, records, and history. Time includes coordinating care, interpretation of tests, and counseling the patient/family. This also includes time I spent with the patient for exam, treatment plan, and education as well as documenting clinical information in the electronic health record.
[2021-03-10 14:47] VITALS: BP 122/66; PULSE 52; RESP 16; TEMP 35.7
--- NOTE | 2021-03-10 23:43 | PN.PCM_ITS ---
History of Present Illness Date of Service: 03/10/21 Chief Complaint: Diabetic foot ulcer left heel History of Wound: A 50-year-old white male with a past medical history of diabetes and hypertension who presents to the wound healing center today with complaint of a diabetic foot ulcer to his left heel present for the last 2 months. The patient initially went to the emergency department on 01/24/2021 at [facility] and had a CT of his foot done at that time which showed a soft tissue puncture wound in the heel with no soft tissue gas or radiopaque foreign body and no acute fracture. No lytic or blastic bony lesions seen. His blood work showed an elevated glucose of 244 and his CRP at the time was 0.80. He was placed on Keflex and Bactrim DS and was referred to primary care and or thopedi. He also had a wound culture done and 2 blood cultures which are not available for review at this time. Patient's other records are not available for review either by Dr. Johnson at [facility]. But apparently according to the patient he was given a offloading boot and was referred to wound center for further management. The patient states that he is tolerating his antibiotics well. He denies any systemic signs of infection at this time. The patient states that he follow-up with primary care but would like to consider switching primary care as they did not address his diabetes or place him on any diabetic medications. He is currently on no maintenance medications. Apparently his most recent A1c was 14.5. He does state that he has been utilizing a ointment and covering with gauze to the ulcer. He denies any other acute concerns at this time. Past medical, family, and social history reviewed and not pertinent to the current visit and all other systems reviewed and negative with exception of those listed above. Progress of Wound: Stable, does note improvement in the size of his wound. Wound cultures were reviewed and showed Alcaligenes Enterococcus and acinobacter which he was placed on ciprofloxacin, which he completed, patient was also recently started on Metformin and lisinopril for his type 2 diabetes mellitus a nd his recent A1c was reviewed and was 7.9. Denies any systemic or localized signs of infection and is doing well with daily wound dressing changes. No new concerns. Given delayed healing, will reculture today. Though patient does admit to not always being compliant with offloading. Objective Data Objective Data Vital Signs: Vital Signs Temp Pulse Resp BP 96.3 F L 52 L 16 122/66 H 03/10/21 14:47 03/10/21 14:47 03/10/21 14:47 03/10/21 14:47 Oxygen Delivery Method Room Air Lab / Micro Data Result Diagrams: 02/10/21 15:44 02/10/21 15:44 Micro: Microbiology 03/10/21 15:10 Wound Abcess - Heel, Left Gram Stain - Final 03/10/21 15:10 Wound Abcess - Heel, Left Wound Culture - Final Streptococcus agalactiae (B) Coag Negative Staph Enterococcus faecalis Corynebacterium jeikeium 02/10/21 14:40 Wound - Heel, Left Gram Stain - Final 02/10/21 14:40 Wound - Heel, Left Wound Culture - Final Alcaligenes faecalis ssp faeca Acinetobacter Lwoffi Enterococcus faecalis 02/10/21 14:40 Wound - Heel, Left Anaerobic Culture - Final No anaerobic bacteria isolated. Charges/Coding Procedures Integumentary [id number]: [id number] Beverley subq tissue 20 sq cm/< Physical Exam Const alert, oriented x3, no apparent distress, healthy appearing and well nourished General Appearance: cooperative Exam Limitations: no limitations HEENT normocephalic HEENT Narrative: Rash present to forehead, chronic Head and Scalp: normal to inspection Mouth: oral and palatal mucosa normal Eyes General Eye: normal appearance of both eyes Resp normal respiratory effort, normal air movement and no use of accessory muscles Effort and Inspection: able to speak in complete sentences Auscultation: clear to auscultation bilaterally Cardio regular rate, regular rhythm, S1 normal heart sound, S2 normal heart sound, no murmurs and peripheral pulses 2+ throughout Palpation: normal PMI Rate: regular rate Heart Sounds: S1 normal and S2 normal GI normal to inspection, nondistended, normoactive bowel sounds, soft to palpation, non-tender and non-distended Palpation: soft Extremity normal to inspection and full ROM General Extremity: normal exam except as noted Skin Skin Narrative: Vera grade 2 diabetic foot ulcer to left heel with large amounts of callus and adherent slough, no signs of obvious infection at this time, no purulent drainage or redness or streaking, after debridement wound bed is beefy red and granular Neuro oriented x3 and moves all extremities Sensorium / Orientation: awake, alert, oriented to person, oriented to place and oriented to time Psych mental status grossly normal, thought process normal and denies hallucinations Appearance: grossly normal Attitude: calm Activity / Motor Behavior: appropriate eye contact Speech: normal speech Thought Process: normal thought process Thought Content: normal thought content Attention / Concentration: attention grossly intact Insight: insight good Judgement: judgement good Debridement Note Debridement Note Post-Debridement Measurements and Additional Note: Post-Debridement Measurements/Treatment - Nurse 1 - General Ulcer Assessment Start: 02/10/21 13:59 Freq: Status: Active Protocol: LUIS F.CapstoryT Activity Type Activity Date Activity User E-Sign Co-Sign Detail Recorded Client Recorded Date Recorded By Document 02/10/21 13:59 MT [id number] 02/10/21 14:17 MT Document 02/17/21 13:23 ML [id number] 02/17/21 13:30 ML Document 02/24/21 13:49 KR [id number] 02/24/21 13:55 KR Document 03/03/21 15:36 ML Desktop 03/03/21 15:44 ML Document 03/10/21 14:47 ML [id number] 03/10/21 14:56 ML 02/10/21 02/17/21 02/24/21 13:59 13:23 13:49 - Today's Visit Information Type of service Initial Visit Follow-up Visit Follow-up Visit (Physician/CONTINUITY PERSON (Physician/CONTINUITY PERSON ) ) Arrival Mode Ambulatory Ambulatory Ambulatory Transfer Assistance Accompanied by self Patient Identification Verified (Name & Yes Yes ) Patient Requires Transmission-Based No Precautions Safety Precautions NA Vital Signs Temperature (97.8 F-99.1 F) 97.0 F L 98.3 F 96.3 F L Temperature Source Temporal Temporal Temporal Pulse Rate (60-100) 50 L 55 L 60 Pulse Location Monitor Monitor Monitor Respiratory Rate (12-18) 18 16 Respiratory rate source Observation Observation Oxygen Delivery Method Room Air Blood Pressure (90/60-120/80) 160/82 H 166/85 H 146/66 H Blood Pressure Mean (mm Hg) 108 112 92 Source Monitor Monitor Monitor Position Sitting Sitting Semi-Fowlers Blood Pressure Location Left Arm Right Arm Right Arm History Since Last Visit- (Skip if this is Patient's initial visit) Have you changed medications since your No No last visit? Any new allergies or adverse reactions No No Had a fall/change in ADL's that may No No increase risk of falls Signs or symptoms of abuse and/or No No neglect since last visit Have you been in the hospital since your No No last visit? Has dressing in place as prescribed Yes No Has compression in place as prescribed N/A N/A Has offloadiing in place as prescribed Yes N/A Experienced any changes in pain level or No No management Left Footwear Removable Cast Surgical Shoe Walker/Walking with pressure Boot relief insole Right Footwear Regular Shoe Regular Shoe Pain Scale: 0-10 Numeric Is Patient Pain Free? Yes No 03/03/21 03/10/21 15:36 14:47 WC - Today's Visit Information Type of service Follow-up Visit Follow-up Visit (Physician/CONTINUITY PERSON (Physician/CONTINUITY PERSON ) ) Arrival Mode Ambulatory Ambulatory Transfer Assistance None Accompanied by Patient Identification Verified (Name & Yes Yes ) Patient Requires Transmission-Based No No Precautions Safety Precautions NA NA Vital Signs Temperature (97.8 F-99.1 F) 97.1 F L 96.3 F L Temperature Source Temporal Temporal Pulse Rate (60-100) 57 L 52 L Pulse Location Monitor Monitor Respiratory Rate (12-18) 16 16 Respiratory rate source Observation Observation Oxygen Delivery Method Blood Pressure (90/60-120/80) 155/70 H 122/66 H Blood Pressure Mean (mm Hg) 98 84 Source Monitor Monitor Position Sitting Sitting Blood Pressure Location Left Arm Right Arm History Since Last Visit- (Skip if this is Patient's initial visit) Have you changed medications since your No No last visit? Any new allergies or adverse reactions No No Had a fall/change in ADL's that may No No increase risk of falls Signs or symptoms of abuse and/or No No neglect since last visit Have you been in the hospital since your No No last visit? Has dressing in place as prescribed Yes Yes Has compression in place as prescribed N/A N/A Has offloadiing in place as prescribed N/A N/A Experienced any changes in pain level or Yes Yes management Left Footwear Surgical Shoe Removable Cast with pressure Walker/Walking relief insole Boot Right Footwear Regular Shoe Regular Shoe Pain Scale: 0-10 Numeric Is Patient Pain Free? Yes Yes - Nurse 1 - General Ulcer Measurement Start: 02/10/21 13:59 Freq: Status: Active Protocol: Activity Type Activity Date Activity User E-Sign Co-Sign Detail Recorded Client Recorded Date Recorded By Document 02/10/21 13:59 MT [id number] 02/10/21 14:17 MT Document 02/17/21 13:23 ML [id number] 02/17/21 13:30 ML Document 02/24/21 13:49 KR [id number] 02/24/21 13:55 KR Document 03/03/21 15:36 ML Desktop 03/03/21 15:44 ML Document 03/10/21 14:47 ML [id number] 03/10/21 14:56 ML 02/10/21 02/17/21 02/24/21 13:59 13:23 13:49 Wound Center Nurse 1 #1 Left Heel -Current Size (cm) - Length 0.9 0.5 0.6 -Current Size (cm) - Width 1.0 0.8 1.1 -Current Size (cm) - Depth 0.3 0.3 0.2 -Total Square Cm 0.90 0.40 0.66 -Undermining/Tunneling Yes -Undermining/Tunneling Starts (O'clock 10 ) -Undermining/Tunneling Ends (O'clock) 8 -Maximum Distance (cm) 0.3 -Exudate Amt Medium Small Small -Exudate Type Serosanguineous Serosanguineous Serosanguineous -Wound Margin Thickened & Distinct, Distinct, Rolled Under Outline Outline Attached Attached -Granulation Amt Medium (34-66%) Small (1-33%) Small (1-33%) -Granulation Quality Pale,[place] Red -Slough/Fibrin No -Necrosis Amt Medium (34-66%) None Present (0 Small (1-33%) %) -Necrotic Tissue Type Adherent Slough Adherent Slough -Texture (Sandra-wound Skin Appearance) Assessed Assessed Assessed, Scarring -Moisture (Sandra-wound Skin Appearance) Assessed Assessed No Abnormality, Assessed -Color (Sandra-wound Skin Appearance) Assessed Assessed No Abnormality, Assessed -Temperature (Sandra-wound Skin No Abnormality No Abnormality No Abnormality Appearance) (Pt Warm) (Pt Warm) (Pt Warm) -Tenderness on Palpation (Sandra-wound No No No Skin Appearance) -Ulcer Cleansing Rinsed/ Rinsed/ Rinsed/ Irrigated with Irrigated with Irrigated with Saline Saline Saline -Foul Odor after Cleansing No No No -Anesthetic Used 4% Lidocaine 4% Lidocaine 5% Lidocaine Solution Solution Gel Left Calf (cm) 40.5 Left Ankle (cm) 24 03/03/21 03/10/21 15:36 14:47 Wound Center Nurse 1 #1 Left Heel -Current Size (cm) - Length 0.5 0.3 -Current Size (cm) - Width 0.5 0.3 -Current Size (cm) - Depth 0.1 0.5 -Total Square Cm 0.25 0.09 -Undermining/Tunneling -Undermining/Tunneling Starts (O'clock ) -Undermining/Tunneling Ends (O'clock) -Maximum Distance (cm) -Exudate Amt Small Small -Exudate Type Serosanguineous Serosanguineous -Wound Margin Distinct, Distinct, Outline Outline Attached Attached -Granulation Amt Medium (34-66%) None Present (0 %) -Granulation Quality -Slough/Fibrin -Necrosis Amt Medium (34-66%) Medium (34-66%) -Necrotic Tissue Type Adherent Slough Adherent Slough -Texture (Sandra-wound Skin Appearance) Assessed Assessed -Moisture (Sandra-wound Skin Appearance) Dry/Scaly Assessed -Color (Sandra-wound Skin Appearance) Assessed Assessed -Temperature (Sandra-wound Skin No Abnormality No Abnormality Appearance) (Pt Warm) (Pt Warm) -Tenderness on Palpation (Sandra-wound No No Skin Appearance) -Ulcer Cleansing Rinsed/ Wound Cleanser Irrigated with Saline -Foul Odor after Cleansing No No -Anesthetic Used 4% Lidocaine 4% Lidocaine Solution Solution Left Calf (cm) Left Ankle (cm) WC - Nurse 2 - General Ulcer CM Notes Start: 02/10/21 13:59 Freq: Status: Active Protocol: Activity Type Activity Date Activity User E-Sign Co-Sign Detail Recorded Client Recorded Date Recorded By Document 02/10/21 16:31 PL [id number] 02/10/21 16:32 PL Document 02/17/21 16:13 PL [id number] 02/17/21 16:14 PL Document 02/24/21 16:18 PL [id number] 02/24/21 16:23 PL Document 03/03/21 16:09 MW Desktop 03/03/21 16:11 MW Document 03/10/21 15:04 MW [id number] 03/10/21 15:12 MW 02/10/21 02/17/21 02/24/21 16:31 16:13 16:18 Wound Center Nurse 2 #1 Left Heel -Time 14:35 13:36 14:23 -Correct Patient Yes Yes Yes -Correct Side, Site, Position Yes Yes Yes -Correct Procedure Yes Yes Yes -Procedure Performed Yes Yes Yes -Type of Procedure Debridement Debridement Debridement -Clinical Debridement Subcutaneous Subcutaneous Subcutaneous -Tissue Removed Subcutaneous Subcutaneous Subcutaneous -Post Debridement (cm) - Length 1.5 0.9 0.7 -Post Debridement (cm) - Width 1.5 1.0 0.7 -Post Debridement (cm) - Depth 0.8 0.5 0.5 -Total Square (Post) (cm) 2.25 0.90 0.49 -Area of Debridement (cm) - Length 1.5 0.9 0.7 -Area of Debridement (cm) - Width 1.5 1.0 0.7 -Total Square (Area) (cm) 2.25 0.90 0.49 -Tunneling No No No -Undermining/Tunneling No No No -Circular Undermining No No No -Wound/Ulcer Outcome Not Healed Not Healed Not Healed -Ulcer Cleansing Rinsed/ Rinsed/ Rinsed/ Irrigated with Irrigated with Irrigated with Saline Saline Saline -Foul Odor after Cleansing No No No -Bioengineered Tissue No No No -Bleeding Controlled with Pressure -Offloading -Treatment Response Procedure Tolerated Well -Debridement - Subq, 1st 20sq cm Yes Yes Yes Pain Scale: 0-10 Numeric Is Patient Pain Free? Yes Yes Yes 03/03/21 03/10/21 16:09 15:04 Wound Center Nurse 2 #1 Left Heel -Time 16:09 15:04 -Correct Patient Yes Yes -Correct Side, Site, Position Yes Yes -Correct Procedure Yes Yes -Procedure Performed Yes Yes -Type of Procedure Debridement Debridement -Clinical Debridement Subcutaneous Subcutaneous -Tissue Removed Subcutaneous Subcutaneous -Post Debridement (cm) - Length 0.6 0.5 -Post Debridement (cm) - Width 0.5 0.5 -Post Debridement (cm) - Depth 0.5 0.6 -Total Square (Post) (cm) 0.30 0.25 -Area of Debridement (cm) - Length 0.6 0.5 -Area of Debridement (cm) - Width 0.5 0.5 -Total Square (Area) (cm) 0.30 0.25 -Tunneling No No -Undermining/Tunneling No No -Circular Undermining No No -Wound/Ulcer Outcome Not Healed Not Healed -Ulcer Cleansing Rinsed/ Rinsed/ Irrigated with Irrigated with Saline Saline -Foul Odor after Cleansing No No -Bioengineered Tissue No No -Bleeding Controlled with Pressure Pressure -Offloading No No -Treatment Response Procedure Procedure Tolerated Well Tolerated Well -Debridement - Subq, 1st 20sq cm Yes Yes Pain Scale: 0-10 Numeric Is Patient Pain Free? Yes Yes - Nurse 3 - General Ulcer D/C NN Start: 02/10/21 13:59 Freq: Status: Active Protocol: Activity Type Activity Date Activity User E-Sign Co-Sign Detail Recorded Client Recorded Date Recorded By Document 02/24/21 14:30 ML [id number] 02/24/21 14:31 ML Document 03/03/21 16:11 MW Desktop 03/03/21 16:12 MW Document 03/10/21 15:24 ML [id number] 03/10/21 15:25 ML 02/24/21 03/03/21 03/10/21 14:30 16:11 15:24 Wound Care Nurse 3 #1 Left Heel -Ulcer Cleansing Rinsed/ Rinsed/ Rinsed/ Irrigated with Irrigated with Irrigated with Saline Saline Saline -Foul Odor after Cleansing No No No -Negative Pressure Wound Therapy N/A -Primary Dressing Applied Silvercel Aquacel Extra Aquacel Extra -Other Dressing foam dressing -Primary Dressing Covered/Secured with Dry Gauze & Dry Gauze & Roll Gauze, Roll Gauze, Secured with Secured with Tape Tape -Other Covering abd pad -Aquacel Extra 1 1 -Silvercel 1 Treatment Response Procedure Tolerated Well Pain Scale: 0-10 Numeric Is Patient Pain Free? Yes Teaching: Wound Center Dressing Your Wound -Person Taught Patient -Teaching Method Discussion -Response to teaching Verbalize understanding WC - Visit Discharge Discharge Condition Stable Stable Ambulatory Status Ambulatory Ambulatory Transportation Private Auto Accompanied by self Medication Reconcilliation completed & No No provided to patient/care provider Clinical Summary of Care Provided Yes Yes Additional Wound Wound debrided: left heel dfu Laterality: Left Wound Grade/Stage: vera 2 Type of Debridement: Excisional debridement Anesthesia Used: 5% Lidocaine Gel Depth: Down to and including healthy tissue and in the subcutaneous layer Percentage of wound debrided: 100 Instrument Used: 5mm curette Tissue Removed: slough and devitalized tissue Severity: Fat Layer Exposed Amount of bleeding with debridement: Mild Bleeding Controlled with: Pressure Patient tolerated procedure: Patient tolerated procedure well Assessment/Plan Assessment/Plan (1) Diabetic ulcer of left foot: CODE(S): E11.621 - Type 2 diabetes mellitus with foot ulcer; L97.529 - Non-pressure chronic ulcer of other part of left foot with unspecified severity (2) Uncontrolled type 2 diabetes mellitus: CODE(S): E11.65 - Type 2 diabetes mellitus with hyperglycemia (3) HTN (hypertension): CODE(S): I10 - Essential (primary) hypertension PLAN: Debridement performed today in clinic as annotated above. Moistened aquacell covered with gauze applied. At home wound-care instructions: Moistened aquacell cover with gauze and continue with CAM Walker for offloading. Change dressing once daily or more frequently as needed due to contamination. Wash wounds daily with antibacterial soap and water, rinse and dry thoroughly before each dressing change. Did harshil scuss different offloading measures to consider as well. Compression: No compression needed at this time, hold off on vascular studies due to cost and patient not having insurance coverage Off-loading: The patient was instructed to avoid pressure and friction on the affected areas. Reposition every 2 hours at minimum. Avoid prolonged standing and/or dangling of legs. When seated, feet should be elevated at chest level. Frequent ambulation is encouraged. Diet: Patient encouraged to increase protein intake while taking caution to avoid high carbohydrate and/or sugar intake. Labs/cultures/imaging: Cultures ordered previously and patient started on cipro based on sensitivity, will reculture today due to lack of improvement. Routine baseline lab work reviewed as noted above. Patient was given information to schedule with new primary care for management of his hypertension and diabetes. Follow-up: Return to clinic in 1 week for re-evaluation. Return sooner or report to the emergency room should symptoms worsen, or new symptoms arise. This note was generated with [employer] dictation software. It may contain incorrect words, spelling, and punctuation that were not noted in checking the note before signing. I have spent 55 minutes today reviewing labs, records, and history. Time includes coordinating care, interpretation of tests, and counseling the patient/family. This also includes time I spent with the patient for exam, treatment plan, and education as well as documenting clinical information in the electronic health record.
[2021-03-11 14:31] LABS: Bedside Glucose 105 mg/dL (70-110)
== END 2021-03-12 23:59 ==
LOC: WC 15:15
PROVIDERS: Nurse Practitioner Family; PCP Student in an Organized Health Care Education/Training Program; Visit Provider Nurse Practitioner Family
DX: E11.621 Type 2 diabetes mellitus with foot ulcer (principal); L97.422 Non-pressure chronic ulcer of left heel and midfoot with fat layer exposed; E11.65 Type 2 diabetes mellitus with hyperglycemia; I10 Essential (primary) hypertension; Z79.84 Long term (current) use of oral hypoglycemic drugs; Z79.899 Other long term (current) drug therapy
CPT/HCPCS: 11042; 36415; 80053; 82043; 82962; 83036; 84134; 84443; 85025; 85652; 86140; 87070; 87075; 87077; 87186; 87205; 99213; G0463

== ENCOUNTER 2021-04-06 15:30 | Outpatient (RCR) | payer SELFPAY ==
[2021-02-16 16:34] VITALS: BMI 40.0
[2021-03-13 00:12] VITALS: BP 122/66; PULSE 52; RESP 16; TEMP 35.7
[2021-03-17 15:14] VITALS: BP 126/73; PULSE 55; RESP 16; TEMP 36.2; BMI 40.0
--- NOTE | 2021-03-17 21:57 | PCM.WC.PN ---
History of Present Illness Date of Service: 03/17/21 Chief Complaint: Diabetic foot ulcer left heel History of Wound: A 50-year-old white male with a past medical history of diabetes and hypertension who presents to the wound healing center today with complaint of a diabetic foot ulcer to his left heel present for the last 2 months. The patient initially went to the emergency department on 01/24/2021 at [facility] and had a CT of his foot done at that time which showed a soft tissue puncture wound in the heel with no soft tissue gas or radiopaque foreign body and no acute fracture. No lytic or blastic bony lesions seen. His blood work showed an elevated glucose of 244 and his CRP at the time was 0.80. He was placed on Keflex and Bactrim DS and was referred to primary care and orthopedics. He also had a wound culture done and 2 blood cultures which are not available for review at this time. Patient's other records are not available for review either by Dr. Johnson at [facility]. But apparently according to the patient he was given a offloading boot and was referred to wound center for further management. The patient states that he is tolerating his antibiotics well. He denies any systemic signs of infection at this time. The patient states that he follow-up with primary care but would like to consider switching primary care as they did not address his diabetes or place him on any diabetic medications. He is currently on no maintenance medications. Apparently his most recent A1c was 14.5. He does state that he has been utilizing a ointment and covering with gauze to the ulcer. He denies any other acute concerns at this time. Past medical, family, and social history reviewed and not pertinent to the current visit and all other systems reviewed and negative with exception of those listed above. Progress of Wound: 03/17/2021?the patient does state that his pain has worsened over the last week and that he has had an increase in drainage. His wound cultures were reviewed and showed strep B and Enterococcus, both susceptible to ampicillin and therefore patient was started on Augmentin, he just started this 2 days ago. He has been compliant with utilizing his cam walker boot and has also been compliant with his wound dressings. Given his delayed wound healing, vascular studies were ordered today and patient was encouraged to follow-up with podiatry to see if surgical debridement is indicated, given the worsening deterioration of his wound. Did discuss with patient that if any severe symptoms of infection occur that he should seek emergent medical attention. Objective Data Objective Data Vital Signs: Vital Signs Temp Pulse Resp BP 97.1 F L 55 L 16 126/73 H 03/17/21 15:14 03/17/21 15:14 03/17/21 15:14 03/17/21 15:14 Body Mass Index (BMI) 40.0 Charges/Coding Procedures Integumentary 111xxx-113xx: [id number] [place] subq tissue 20 sq cm/< Physical Exam Const alert, oriented x3, no apparent distress, healthy appearing and well nourished General Appearance: cooperative Exam Limitations: no limitations HEENT normocephalic HEENT Narrative: Rash present to forehead, chronic Head and Scalp: normal to inspection Mouth: oral and palatal mucosa normal Eyes General Eye: normal appearance of both eyes Resp normal respiratory effort, normal air movement and no use of accessory muscles Effort and Inspection: able to speak in complete sentences Auscultation: clear to auscultation bilaterally Cardio regular rate, regular rhythm, S1 normal heart sound, S2 normal heart sound, no murmurs and peripheral pulses 2+ throughout Palpation: normal PMI Rate: regular rate Heart Sounds: S1 normal and S2 normal GI normal to inspection, nondistended, normoactive bowel sounds, soft to palpation, non-tender and non-distended Palpation: soft Extremity normal to inspection and full ROM General Extremity: normal exam except as noted Skin Skin Narrative: Vera grade 2 diabetic foot ulcer to left heel with large amounts of callus and adherent slough, no signs of obvious infection at this time, no purulent drainage or redness or streaking, after debridement wound bed is beefy red and granular, site does have significant undermining now that goes towards the posterior aspect of the heel, approximately 2.5 cm of undermining Neuro oriented x3 and moves all extremities Sensorium / Orientation: awake, alert, oriented to person, oriented to place and oriented to time Psych mental status grossly normal, thought process normal and denies hallucinations Appearance: grossly normal Attitude: calm Activity / Motor Behavior: appropriate eye contact Speech: normal speech Thought Process: normal thought process Thought Content: normal thought content Attention / Concentration: attention grossly intact Insight: insight good Judgement: judgement good Debridement Note Debridement Note Post-Debridement Measurements and Additional Note: Post-Debridement Measurements/Treatment WC - Nurse 1 - General Ulcer Assessment Start: 03/17/21 15:14 Freq: Status: Active Protocol: GENARO Activity Type Activity Date Activity User E-Sign Co-Sign Detail Recorded Client Recorded Date Recorded By Document 03/17/21 15:14 ML Desktop 03/17/21 15:22 ML 03/17/21 15:14 - Today's Visit Information Type of service Follow-up Visit (Physician/INSULATOR TECHNICIAN ) Arrival Mode Ambulatory Patient Identification Verified (Name & Yes ) Patient Requires Transmission-Based No Precautions Safety Precautions NA Height and Weight Body Mass Index (BMI) 40.0 BMI Classification Obese Vital Signs Temperature (97.8 F-99.1 F) 97.1 F L Temperature Source Temporal Pulse Rate (60-100) 55 L Pulse Location Monitor Respiratory Rate (12-18) 16 Respiratory rate source Observation Blood Pressure (90/60-120/80) 126/73 H Blood Pressure Mean (mm Hg) 90 Source Monitor Position Sitting Blood Pressure Location Left Arm History Since Last Visit- (Skip if this is Patient's initial visit) Have you changed medications since your No last visit? Any new allergies or adverse reactions No Had a fall/change in ADL's that may No increase risk of falls Signs or symptoms of abuse and/or No neglect since last visit Have you been in the hospital since your No last visit? Has dressing in place as prescribed Yes Has compression in place as prescribed N/A Has offloadiing in place as prescribed N/A Experienced any changes in pain level or No management Left Footwear Removable Cast Walker/Walking Boot Right Footwear Regular Shoe Pain Scale: 0-10 Numeric Is Patient Pain Free? Yes - Nurse 1 - General Ulcer Measurement Start: 03/17/21 15:14 Freq: Status: Active Protocol: Activity Type Activity Date Activity User E-Sign Co-Sign Detail Recorded Client Recorded Date Recorded By Document 03/17/21 15:14 ML Desktop 03/17/21 15:22 ML 03/17/21 15:14 Wound Center Nurse 1 #1 Left Heel -Current Size (cm) - Length 0.5 -Current Size (cm) - Width 0.5 -Current Size (cm) - Depth 0.8 -Total Square Cm 0.25 -Undermining/Tunneling Yes -Undermining/Tunneling Starts (O'clock 4 ) -Undermining/Tunneling Ends (O'clock) 6 -Maximum Distance (cm) 0.3 -Exudate Amt Medium -Exudate Type Serosanguineous -Wound Margin Distinct, Outline Attached -Granulation Amt Medium (34-66%) -Slough/Fibrin Yes -Necrosis Amt Medium (34-66%) -Necrotic Tissue Type Adherent Slough -Texture (Sandra-wound Skin Appearance) Assessed -Moisture (Sandra-wound Skin Appearance) Maceration -Color (Sandra-wound Skin Appearance) Assessed -Ulcer Cleansing Rinsed/ Irrigated with Saline -Foul Odor after Cleansing No -Anesthetic Used 5% Lidocaine Gel WC - Nurse 2 - General Ulcer CM Notes Start: 03/17/21 15:14 Freq: Status: Active Protocol: Activity Type Activity Date Activity User E-Sign Co-Sign Detail Recorded Client Recorded Date Recorded By Document 03/17/21 15:35 MW Desktop 03/17/21 15:44 MW 03/17/21 15:35 Wound Center Nurse 2 -Time 15:38 -Correct Patient Yes -Correct Side, Site, Position Yes -Correct Procedure Yes -Procedure Performed Yes -Type of Procedure Debridement -Clinical Debridement Subcutaneous -Tissue Removed Subcutaneous -Post Debridement (cm) - Length 1.0 -Post Debridement (cm) - Width 1.0 -Post Debridement (cm) - Depth 0.6 -Total Square (Post) (cm) 1.00 -Area of Debridement (cm) - Length 1.0 -Area of Debridement (cm) - Width 1.0 -Total Square (Area) (cm) 1.00 -Tunneling Yes -Tunneling Position (O'clock) 6 -Tunneling Distance (cm) 2.5 -Undermining/Tunneling No -Circular Undermining No -Wound/Ulcer Outcome Not Healed -Ulcer Cleansing Rinsed/ Irrigated with Saline -Foul Odor after Cleansing No -Bioengineered Tissue No -Bleeding Controlled with Pressure -Offloading No -Treatment Response Procedure Tolerated Well -Debridement - Subq, 1st 20sq cm Yes - Nurse 3 - General Ulcer D/C NN Start: 03/17/21 15:14 Freq: Status: Active Protocol: Activity Type Activity Date Activity User E-Sign Co-Sign Detail Recorded Client Recorded Date Recorded By Document 03/17/21 15:56 AK Desktop 03/17/21 15:57 AK 03/17/21 15:56 Wound Care Nurse 3 -Ulcer Cleansing Rinsed/ Irrigated with Saline -Foul Odor after Cleansing No -Primary Dressing Applied Mepilex Border, Silvercel -Mepilex Border 1 -Silvercel 1 WC - Visit Discharge Discharge Condition Stable Ambulatory Status Ambulatory Clinical Summary of Care Provided Yes Additional Wound Wound debrided: Left heel DFU Laterality: Left Type of Debridement: Excisional debridement Anesthesia Used: 5% Lidocaine Gel Depth: Down to and including healthy tissue and in the subcutaneous layer Percentage of wound debrided: 100 Instrument Used: 5mm curette Tissue Removed: Slough, callus, devitalized tissue Severity: Fat Layer Exposed Amount of bleeding with debridement: Mild Bleeding Controlled with: Pressure Patient tolerated procedure: Patient tolerated procedure well Assessment/Plan Assessment/Plan (1) Diabetic ulcer of left foot: CODE(S): E11.621 - Type 2 diabetes mellitus with foot ulcer; L97.529 - Non-pressure chronic ulcer of other part of left foot with unspecified severity (2) Uncontrolled type 2 diabetes mellitus: CODE(S): E11.65 - Type 2 diabetes mellitus with hyperglycemia (3) HTN (hypertension): CODE(S): I10 - Essential (primary) hypertension PLAN: Debridement performed today in clinic as annotated above. Silver cell covered with [place] SAP foam dressing applied. At home wound-care instructions: Silver cell cover with [place] SAP foam dressing and continue with CAM Walker for offloading. Did also recommend a knee walker for better offloading. Change dressing once daily or more frequently as needed due to contamination. Wash wounds daily with antibacterial soap and water, rinse and dry thoroughly before each dressing change. Did discuss different offloading measures to consider as well. Compression: No compression needed at this time, will order vascular studies. Ultimately, patient may need further imaging as site is deteriorating. However due to lack of insurance coverage patient wishes to hold off at this time. Advised patient that I would like to consult podiatry and I personally discussed the patient's case with Dr. Nath. Discussed with patient again that if any worsening signs and symptoms of infection or worsening pain occurs that he should go to the emergency department. Off-loading: The patient was instructed to avoid pressure and friction on the affected areas. Reposition every 2 hours at minimum. Avoid prolonged standing and/or dangling of legs. When seated, feet should be elevated at chest level. Frequent ambulation is encouraged. Diet: Patient encouraged to increase protein intake while taking caution to avoid high carbohydrate and/or sugar intake. Labs/cultures/imaging: Cultures ordered previously and patient started on cipro based on sensitivity, second culture was reviewed and showed strep and Enterococcus and patient was placed on Augmentin. Routine baseline lab work reviewed as noted above. Patient was given information to schedule with new primary care for management of his hypertension and diabetes. Follow-up: Return to clinic in 1 week for re-evaluation. Return sooner or report to the emergency room should symptoms worsen, or new symptoms arise. This note was generated with [employer] dictation software. It may contain incorrect words, spelling, and punctuation that were not noted in checking the note before signing. I have spent 35 minutes today reviewing labs, records, and history. Time includes coordinating care, interpretation of tests, and counseling the patient/family. This also includes time I spent with the patient for exam, treatment plan, and education as well as documenting clinical information in the electronic health record.
[2021-03-24 14:57] VITALS: BP 147/86; PULSE 65; BMI 40.0
--- NOTE | 2021-03-24 15:26 | PCM.WC.PN ---
History of Present Illness Date of Service: 03/24/21 Chief Complaint: Diabetic foot ulcer left heel History of Wound: A 50-year-old white male with a past medical history of diabetes and hypertension who presents to the wound healing center today with complaint of a diabetic foot ulcer to his left heel present for the last 2 months. The patient initially went to the emergency department on 01/24/2021 at [facility] and had a CT of his foot done at that time which showed a soft tissue puncture wound in the heel with no soft tissue gas or radiopaque foreign body and no acute fracture. No lytic or blastic bony lesions seen. At the time, the patient was unsure if he actually stepped on something to cause the puncture wound. His blood work showed an elevated glucose of 244 and his CRP at the time was 0.80. He was placed on Keflex and Bactrim DS and was referred to primary care and orthopedics. He also had a wound culture done and 2 blood cultures which are not available for review at this time. Patient's other records are not available for review either by Dr. Johnson at [facility]. But apparently according to the patient he was given a offloading boot and was referred to wound center for further management. The patient states that he is tolerating his antibiotics well. He denies any systemic signs of infection at this time. The patient states that he follow-up with primary care but would like to consider switching primary care as they did not address his diabetes or place him on any diabetic medications. He is currently on no maintenance medications. Apparently his most recent A1c was 14.5. He does state that he has been utilizing a ointment and covering with gauze to the ulcer. He denies any other acute concerns at this time. Past medical, family, and social history reviewed and not pertinent to the current visit and all other systems reviewed and negative with exception of those listed above. Progress of Wound: 03/17/2021?the patient does state that his pain has worsened over the last week and that he has had an increase in drainage. His wound cultures were reviewed and showed strep B and Enterococcus, both susceptible to ampicillin and therefore patient was started on Augmentin, he just started this 2 days ago. He has been compliant with utilizing his cam walker boot and has also been compliant with his wound dressings. Given his delayed wound healing, vascular studies were ordered today and patient was encouraged to follow-up with podiatry to see if surgical debridement is indicated, given the worsening deterioration of his wound. Did discuss with patient that if any severe symptoms of infection occur that he should seek emergent medical attention. 03/24/2021?patient notes improvement in pain and has been tolerating the Augmentin well. He has been compliant with his offloading boot and wound dressings. He does have a consult to podiatry next week. After significant debridement today a large amount of callused surrounding skin was removed, the wound bed appears granular without any signs of infection at this time Objective Data Objective Data Vital Signs: Vital Signs Temp Pulse Resp BP 97.1 F L 65 16 147/86 H 03/17/21 15:14 03/24/21 14:57 03/17/21 15:14 03/24/21 14:57 Body Mass Index (BMI) 40.0 Charges/Coding Procedures Integumentary 111xxx-113xx: 25248 Beverley subq tissue 20 sq cm/< Physical Exam Const alert, oriented x3, no apparent distress, healthy appearing and well nourished General Appearance: cooperative Exam Limitations: no limitations HEENT normocephalic HEENT Narrative: Rash present to forehead, chronic Head and Scalp: normal to inspection Mouth: oral and palatal mucosa normal Eyes General Eye: normal appearance of both eyes Resp normal respiratory effort, normal air movement and no use of accessory muscles Effort and Inspection: able to speak in complete sentences Auscultation: clear to auscultation bilaterally Cardio regular rate, regular rhythm, S1 normal heart sound, S2 normal heart sound, no murmurs and peripheral pulses 2+ throughout Palpation: normal PMI Rate: regular rate Heart Sounds: S1 normal and S2 normal GI normal to inspection, nondistended, normoactive bowel sounds, soft to palpation, non-tender and non-distended Palpation: soft Extremity normal to inspection and full ROM General Extremity: normal exam except as noted Skin Skin Narrative: Vera grade 2 diabetic foot ulcer to left heel with large amounts of callus and adherent slough, no signs of obvious infection at this time, no purulent drainage or redness or streaking, after debridement wound bed is beefy red and granular, after significant amount of callused skin was removed there is no longer any undermining present Neuro oriented x3 and moves all extremities Sensorium / Orientation: awake, alert, oriented to person, oriented to place and oriented to time Psych mental status grossly normal, thought process normal and denies hallucinations Appearance: grossly normal Attitude: calm Activity / Motor Behavior: appropriate eye contact Speech: normal speech Thought Process: normal thought process Thought Content: normal thought content Attention / Concentration: attention grossly intact Insight: insight good Judgement: judgement good Debridement Note Debridement Note Post-Debridement Measurements and Additional Note: Post-Debridement Measurements/Treatment - Nurse 1 - General Ulcer Assessment Start: 03/17/21 15:14 Freq: Status: Active Protocol: [employer] Activity Type Activity Date Activity User E-Sign Co-Sign Detail Recorded Client Recorded Date Recorded By Document 03/17/21 15:14 ML Desktop 03/17/21 15:22 ML Document 03/24/21 14:57 CO [id number] 03/24/21 15:09 AK 03/17/21 03/24/21 15:14 14:57 - Today's Visit Information Type of service Follow-up Visit Follow-up Visit (Physician/PORTER MARINA (Physician/PORTER MARINA ) ) Arrival Mode Ambulatory Ambulatory Patient Identification Verified (Name & Yes ) Patient Requires Transmission-Based No Precautions Safety Precautions NA Height and Weight Body Mass Index (BMI) 40.0 40.0 BMI Classification Obese Obese Vital Signs Temperature (97.8 F-99.1 F) 97.1 F L Temperature Source Temporal Pulse Rate (60-100) 55 L 65 Pulse Location Monitor Respiratory Rate (12-18) 16 Respiratory rate source Observation Blood Pressure (90/60-120/80) 126/73 H 147/86 H Blood Pressure Mean (mm Hg) 90 106 Source Monitor Monitor Position Sitting Blood Pressure Location Left Arm History Since Last Visit- (Skip if this is Patient's initial visit) Have you changed medications since your No No last visit? Any new allergies or adverse reactions No No Had a fall/change in ADL's that may No No increase risk of falls Signs or symptoms of abuse and/or No No neglect since last visit Have you been in the hospital since your No No last visit? Has dressing in place as prescribed Yes Yes Has compression in place as prescribed N/A N/A Has offloadiing in place as prescribed N/A N/A Experienced any changes in pain level or No management Left Footwear Removable Cast Regular Shoe Walker/Walking Boot Right Footwear Regular Shoe Removable Cast Walker/Walking Boot Pain Scale: 0-10 Numeric Is Patient Pain Free? Yes - Nurse 1 - General Ulcer Measurement Start: 03/17/21 15:14 Freq: Status: Active Protocol: Activity Type Activity Date Activity User E-Sign Co-Sign Detail Recorded Client Recorded Date Recorded By Document 03/17/21 15:14 ML Desktop 03/17/21 15:22 ML Document 03/24/21 14:57 CO [id number] 03/24/21 15:09 AK 03/17/21 03/24/21 15:14 14:57 Wound Center Nurse 1 #1 Left Heel -Current Size (cm) - Length 0.5 0.7 -Current Size (cm) - Width 0.5 0.7 -Current Size (cm) - Depth 0.8 0.5 -Total Square Cm 0.25 0.49 -Tunneling Yes -Tunneling Position (O'clock) 11 -Tunneling Distance (cm) 0.5 -Tunneling Position #2 (O'clock) 12 -Undermining/Tunneling Yes -Undermining/Tunneling Starts (O'clock 4 ) -Undermining/Tunneling Ends (O'clock) 6 -Maximum Distance (cm) 0.3 -Exudate Amt Medium Medium -Exudate Type Serosanguineous Serosanguineous -Wound Margin Distinct, Distinct, Outline Outline Attached Attached -Granulation Amt Medium (34-66%) Medium (34-66%) -Granulation Quality Red -Slough/Fibrin Yes Yes -Necrosis Amt Medium (34-66%) Medium (34-66%) -Necrotic Tissue Type Adherent Slough Adherent Slough -Structure Exposed N/A -Texture (Sandra-wound Skin Appearance) Assessed Assessed,Callus -Moisture (Sandra-wound Skin Appearance) Maceration No Abnormality, Assessed -Color (Sandra-wound Skin Appearance) Assessed No Abnormality, Assessed -Temperature (Sandra-wound Skin No Abnormality Appearance) (Pt Warm) -Tenderness on Palpation (Sandra-wound Yes Skin Appearance) -Ulcer Cleansing Rinsed/ Rinsed/ Irrigated with Irrigated with Saline Saline -Foul Odor after Cleansing No -Anesthetic Used 5% Lidocaine 5% Lidocaine Gel Gel WC - Nurse 2 - General Ulcer CM Notes Start: 03/17/21 15:14 Freq: Status: Active Protocol: Activity Type Activity Date Activity User E-Sign Co-Sign Detail Recorded Client Recorded Date Recorded By Document 03/17/21 15:35 MW Desktop 03/17/21 15:44 MW Document 03/24/21 15:29 MW [id number] 03/24/21 15:38 MW 03/17/21 03/24/21 15:35 15:29 Wound Center Nurse 2 -Time 15:38 15:30 -Correct Patient Yes Yes -Correct Side, Site, Position Yes Yes -Correct Procedure Yes Yes -Procedure Performed Yes Yes -Type of Procedure Debridement Debridement -Clinical Debridement Subcutaneous Subcutaneous -Tissue Removed Subcutaneous Subcutaneous -Post Debridement (cm) - Length 1.0 2.0 -Post Debridement (cm) - Width 1.0 1.0 -Post Debridement (cm) - Depth 0.6 0.8 -Total Square (Post) (cm) 1.00 2.00 -Area of Debridement (cm) - Length 1.0 2.0 -Area of Debridement (cm) - Width 1.0 1.0 -Total Square (Area) (cm) 1.00 2.00 -Tunneling Yes No -Tunneling Position (O'clock) 6 -Tunneling Distance (cm) 2.5 -Undermining/Tunneling No No -Circular Undermining No No -Wound/Ulcer Outcome Not Healed Not Healed -Ulcer Cleansing Rinsed/ Rinsed/ Irrigated with Irrigated with Saline Saline -Foul Odor after Cleansing No No -Bioengineered Tissue No No -Bleeding Controlled with Pressure Pressure -Offloading No No -Treatment Response Procedure Procedure Tolerated Well Tolerated Well -Debridement - Subq, 1st 20sq cm Yes Yes Pain Scale: 0-10 Numeric Is Patient Pain Free? Yes WC - Nurse 3 - General Ulcer D/C NN Start: 03/17/21 15:14 Freq: Status: Active Protocol: Activity Type Activity Date Activity User E-Sign Co-Sign Detail Recorded Client Recorded Date Recorded By Document 03/17/21 15:56 AK Desktop 03/17/21 15:57 AK Document 03/24/21 15:49 DL [id number] 03/24/21 15:50 DL 03/17/21 03/24/21 15:56 15:49 Wound Care Nurse 3 #1 Left Heel -Ulcer Cleansing Rinsed/ Rinsed/ Irrigated with Irrigated with Saline Saline -Foul Odor after Cleansing No No -Primary Dressing Applied Mepilex Border, Mepilex Border, Silvercel Silvercel -Mepilex Border 1 1 -Silvercel 1 1 Treatment Response Procedure Tolerated Well Pain Scale: 0-10 Numeric Is Patient Pain Free? Yes WC - Visit Discharge Discharge Condition Stable Stable Ambulatory Status Ambulatory Ambulatory Transportation Private Auto Clinical Summary of Care Provided Yes Additional Wound Wound debrided: Left foot DFU Laterality: Left Type of Debridement: Excisional debridement Anesthesia Used: 4% Lidocaine Solution Depth: Down to and including healthy tissue and in the subcutaneous layer Percentage of wound debrided: 100 Instrument Used: 3mm curette, 5mm curette and #15 blade Tissue Removed: Slough, devitalized tissue, callus Severity: Fat Layer Exposed Amount of bleeding with debridement: Mild Bleeding Controlled with: Compression and gauze and Silver Nitrate Patient tolerated procedure: Patient tolerated procedure well Assessment/Plan Assessment/Plan (1) Diabetic ulcer of left foot: CODE(S): E11.621 - Type 2 diabetes mellitus with foot ulcer; L97.529 - Non-pressure chronic ulcer of other part of left foot with unspecified severity (2) Uncontrolled type 2 diabetes mellitus: CODE(S): E11.65 - Type 2 diabetes mellitus with hyperglycemia (3) HTN (hypertension): CODE(S): I10 - Essential (primary) hypertension PLAN: Debridement performed today in clinic as annotated above. Silver cell covered with Adair SAP foam dressing applied. At home wound-care instructions: Silver cell cover with Adair SAP foam dressing and continue with CAM Walker for offloading. Did also recommend a knee scooter for better offloading. Change dressing once daily or more frequently as needed due to contamination. Wash wounds daily with antibacterial soap and water, rinse and dry thoroughly before each dressing change. Did discuss different offloading measures to consider as well. Compression: No compression needed at this time, will order vascular studies. Ultimately, patient may need further imaging. However due to lack of insurance coverage patient wishes to hold off at this time. Advised patient that I would like to consult podiatry and I personally discussed the patient's case with Dr. Nath. Discussed with patient again that if any worsening signs and symptoms of infection or worsening pain occurs that he should go to the emergency department. Off-loading: The patient was instructed to avoid pressure and friction on the affected areas. Reposition every 2 hours at minimum. Avoid prolonged standing and/or dangling of legs. When seated, feet should be elevated at chest level. Frequent ambulation is encouraged. Diet: Patient encouraged to increase protein intake while taking caution to avoid high carbohydrate and/or sugar intake. Labs/cultures/imaging: Cultures ordered previously and patient started on cipro based on sensitivity, second culture was reviewed and showed strep and Enterococcus and patient was placed on Augmentin. Routine baseline lab work reviewed as noted above. Patient was given information to schedule with new primary care for management of his hypertension and diabetes. Follow-up: Return to clinic in 1 week for re-evaluation. Return sooner or report to the emergency room should symptoms worsen, or new symptoms arise. This note was generated with [employer] dictation software. It may contain incorrect words, spelling, and punctuation that were not noted in checking the note before signing. I have spent 35 minutes today reviewing labs, records, and history. Time includes coordinating care, interpretation of tests, and counseling the patient/family. This also includes time I spent with the patient for exam, treatment plan, and education as well as documenting clinical information in the electronic health record.
--- NOTE | 2021-03-29 12:31 | ART_ITS ---
Reason For Study: LEFT HEEL ULCER Left Segmental Pressures Left brachial= 140mmHg. Left posterior tibial artery = 186mmHg. Left dorsalis pedis artery = 177mmHg. Left digit = 146 mmHg. The left posterior tibial artery waveforms are triphasic. The left dorsalis pedis waveforms are triphasic. Right Segmental Pressures Right brachial= 139mmHg. Right posterior tibial artery = 182mmHg. Right dorsalis pedis artery = 182mmHg. Right digit = 180 mmHg. The right posterior tibial artery waveforms are triphasic. The right dorsalis pedis waveforms are triphasic. Indices The right resting ankle brachial index is 1.30. The right ankle brachial index by the dorsalis pedis is 1.30. The right ankle brachial index by the posterior tibial artery is 1.30. The right digital- brachial index is 1.29. The left resting ankle brachial index is 1.33. The left ankle brachial index by the dorsalis pedis is 1.26. The left ankle brachial index by the posterior tibial artery is 1.33. The left digital-brachial index is 1.04. VL/Lower Ext Art Exam w/o Exercis Interpretation Summary Triphasic Doppler waveforms are noted at ankle level bilaterally. Pulse-volume recordings appear satisfactory at all levels bilaterally, including low thigh, calf, ankle, and d igital levels. Resting ankle-brachial indices are normal bilaterally. Digital-brachial indices are normal bilaterally. There is no evidence of significant arterial occlusive disease in the lower ext remities bilaterally. Ordering Physician: Lupillo Gaytan Referring Physician: Sandhya Madrigal Performed By: Noemi Stiles RVMilton, RDCS
--- NOTE | 2021-03-29 12:31 | VDLE_ITS ---
Reason For Study: BLE EDEMA RIGHT LEFT CFV is compressible, spontaneous, phasic, CFV is compressible, spontaneous, phasic, competent and demonstrates normal competent, and demonstrates normal augmentation. augmentation. FV is compressible, spontaneous, phasic, FV is compressible, spontaneous, phasic, competent and demonstrates normal competent and demonstrates normal augmentation. augmentation. POP V is compressible, spontaneous, phasic, POP V is compressible, spontaneous, phasic, competent and demonstrates normal competent and demonstrates normal augmentation. augmentation. T/P Trunk is compressible. T/P Trunk is compressible. PTV is compressible. PTV is compressible. RT PerV is compressible. LT PerV is compressible. SFJ is competent and measures 0.78 x 0.99 cm. SFJ is competent and measures 0.57 x 0.83 cm. GSV proximal thigh measures 0.40 x 0.42 cm. GSV proximal thigh measures 0.44 x 0.40 cm. GSV at knee measures 0.49 x 0.38 cm. GSV at knee measures 0.41 x 0.42 cm. GSV is competent throughout. GSV is competent throughout. SSV proximal calf is competent and measures SSV proximal calf is competent and measures 0.32 x 0.31 cm. 0.42 x 0.46 cm. Procedure This is a venous duplex using B-mode, color flow and spectral Doppler. Exam performed in department. The exam was diagnostic. A preliminary report was called and/or faxed to . VL/Venous Duplex US - Cesar Extrem Interpretation Summary Deep veins of the lower extremities are bilaterally patent and compressible seg mentally. There is no evidence of deep vein thrombosis on either side. Valvular competence appears in tact within the proximal deep venous systems bilaterally. The great saphenous veins appear bila terally patent and compressible segmentally. Sapheno-femoral junctions are bilaterally competent . Valvular competence appears to be intact segmentally within the great saphenous veins bilaterally. Small saphenous veins are patent and competent bilaterally. Ordering Physician: Lupillo Gaytan Referring Physician: Sandhya Madrigal Performed By: Noemi Stiles, FIGUEROA, RVT
[2021-03-30 15:16] VITALS: BP 136/62; RESP 18; TEMP 36.5; BMI 40.0
--- NOTE | 2021-03-30 16:07 | PCM.WC.PN ---
History of Present Illness Date of Service: 03/30/21 Chief Complaint: Diabetic foot ulcer left heel History of Wound: A 50-year-old white male with a past medical history of diabetes and hypertension who presents to the wound healing center today with complaint of a diabetic foot ulcer to his left heel present for the last 2 months. The patient initially went to the emergency department on 01/24/2021 at [facility] and had a CT of his foot done at that time which showed a soft tissue puncture wound in the heel with no soft tissue gas or radiopaque foreign body and no acute fracture. No lytic or blastic bony lesions seen. At the time, the patient was unsure if he actually stepped on something to cause the puncture wound. His blood work showed an elevated glucose of 244 and his CRP at the time was 0.80. He was placed on Keflex and Bactrim DS and was referred to primary care and orthopedics. He also had a wound culture done and 2 blood cultures which are not available for review at this time. Patient's other records are not available for review either by Dr. Johnson at [facility]. But apparently according to the patient he was given a offloading boot and was referred to wound center for further management. He reports he completed antibiotics at this time and denies odor, redness, fever, chills, nausea, vomiting. Per chart review, Apparently his most recent A1c was 14.5. 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 Progress of Wound: Stable without local signs infection Objective Data Objective Data Vital Signs: Vital Signs Temp Pulse Resp BP 97.7 F L 65 18 136/62 H 03/30/21 15:16 03/24/21 14:57 03/30/21 15:16 03/30/21 15:16 Oxygen Delivery Method Room Air Body Mass Index (BMI) 40.0 Lab / Micro Data Result Diagrams: 03/30/21 16:06 03/30/21 16:06 Radiography Diagnostic Testing: Radiology Impression Extremity Arterial Study 03/29/21 12:31 Interpretation Summary Triphasic Doppler waveforms are noted at ankle level bilaterally. Pulse-volume recordings appear satisfactory at all levels bilaterally, including low thigh, calf, ankle, and digital levels. Resting ankle-brachial indices are normal bilaterally. Digital-brachial indices are normal bilaterally. There is no evidence of significant arterial occlusive disease in the lower extremities bilaterally. Ordering Physician: Lupillo Gaytan Referring Physician: Sandhya Madrigal Performed By: Noemi Stiles RVT, RDDAQUAN Venous Doppler Study 03/29/21 12:31 Interpretation Summary Deep veins of the lower extremities are bilaterally patent and compressible segmentally. There is no evidence of deep vein thrombosis on either side. Valvular competence appears intact within the proximal deep venous systems bilaterally. The great saphenous veins appear bilaterally patent and compressible segmentally. Sapheno-femoral junctions are bilaterally competent . Valvular competence appears to be intact segmentally within the great saphenous veins bilaterally. Small saphenous veins are patent and competent bilaterally. Ordering Physician: Lupillo Gaytan Referring Physician: Sandhya Madrigal Performed By: Noemi Stiles RDCS, RVT Physical Exam Const alert, oriented x3, no apparent distress, healthy appearing and well nourished General Appearance: cooperative Exam Limitations: no limitations HEENT normocephalic Head and Scalp: normal to inspection Extremity normal to inspection and full ROM General Extremity: normal exam except as noted Skin Skin Narrative: Vera grade 2 diabetic foot ulcer to left heel with large amounts of callus and adherent slough, no signs of obvious infection at this time, no purulent drainage or redness or streaking, after debridement wound bed is beefy red and granular, after significant amount of callused skin was removed there is no longer any undermining present. no deep probing. No deep probing, eschar, necrosis. Adjacent skin is atrophic. Palpable DP pulse No bogginess or fluctuance on palpation Active range of motion of toes. Compartments remain soft to this limb. Neuro oriented x3 and moves all extremities Sensorium / Orientation: awake, alert, oriented to person and oriented to place Psych Appearance: grossly normal Attitude: calm Debridement Note Debridement Note Post-Debridement Measurements and Additional Note: Post-Debridement Measurements/Treatment - Nurse 1 - General Ulcer Assessment Start: 03/17/21 15:14 Freq: Status: Active Protocol: GENARO Activity Type Activity Date Activity User E-Sign Co-Sign Detail Recorded Client Recorded Date Recorded By Document 03/17/21 15:14 ML Desktop 03/17/21 15:22 ML Document 03/24/21 14:57 AK [id number] 03/24/21 15:09 AK Document 03/30/21 15:16 AK Desktop 03/30/21 15:23 AK 03/17/21 03/24/21 03/30/21 15:14 14:57 15:16 - Today's Visit Information Type of service Follow-up Visit Follow-up Visit Follow-up Visit (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 (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 (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 ) ) ) Arrival Mode Ambulatory Ambulatory Ambulatory Transfer Assistance None Patient Identification Verified (Name & Yes Yes ) Patient Requires Transmission-Based No No Precautions Safety Precautions NA Height and Weight Body Mass Index (BMI) 40.0 40.0 40.0 BMI Classification Obese Obese Obese Vital Signs Temperature (97.8 F-99.1 F) 97.1 F L 97.7 F L Temperature Source Temporal Temporal Pulse Rate (60-100) 55 L 65 Pulse Location Monitor Respiratory Rate (12-18) 16 18 Respiratory rate source Observation Observation Oxygen Delivery Method Room Air Blood Pressure (90/60-120/80) 126/73 H 147/86 H 136/62 H Blood Pressure Mean (mm Hg) 90 106 86 Source Monitor Monitor Monitor Position Sitting Sitting Blood Pressure Location Left Arm Left Arm History Since Last Visit- (Skip if this is Patient's initial visit) Have you changed medications since your No No No last visit? Any new allergies or adverse reactions No No No Had a fall/change in ADL's that may No No No increase risk of falls Signs or symptoms of abuse and/or No No No neglect since last visit Have you been in the hospital since your No No No last visit? Has dressing in place as prescribed Yes Yes Yes Has compression in place as prescribed N/A N/A N/A Has offloadiing in place as prescribed N/A N/A N/A Experienced any changes in pain level or No No management Left Footwear Removable Cast Regular Shoe Multipodus Walker/Walking Splint/Boot Boot Right Footwear Regular Shoe Removable Cast Regular Shoe Walker/Walking Boot Pain Scale: 0-10 Numeric Is Patient Pain Free? Yes Yes WC - Nurse 1 - General Ulcer Measurement Start: 03/17/21 15:14 Freq: Status: Active Protocol: Activity Type Activity Date Activity User E-Sign Co-Sign Detail Recorded Client Recorded Date Recorded By Document 03/17/21 15:14 ML Desktop 03/17/21 15:22 ML Document 03/24/21 14:57 AK [id number] 03/24/21 15:09 AK Document 03/30/21 15:16 AK Desktop 03/30/21 15:23 AK 03/17/21 03/24/21 03/30/21 15:14 14:57 15:16 Wound Center Nurse 1 #1 Left Heel -Combined with other wound No -Current Size (cm) - Length 0.5 0.7 0.7 -Current Size (cm) - Width 0.5 0.7 0.4 -Current Size (cm) - Depth 0.8 0.5 0.1 -Total Square Cm 0.25 0.49 0.28 -Photo Taken No -Epithelialization None Present -Tunneling Yes No -Tunneling Position (O'clock) 11 -Tunneling Distance (cm) 0.5 -Tunneling Position #2 (O'clock) 12 -Undermining/Tunneling Yes No -Undermining/Tunneling Starts (O'clock 4 ) -Undermining/Tunneling Ends (O'clock) 6 -Maximum Distance (cm) 0.3 -Circular Undermining No -Exudate Amt Medium Medium Medium -Exudate Type Serosanguineous Serosanguineous Serosanguineous -Wound Margin Distinct, Distinct, Distinct, Outline Outline Outline Attached Attached Attached -Granulation Amt Medium (34-66%) Medium (34-66%) Medium (34-66%) -Granulation Quality Red Red -Slough/Fibrin Yes Yes Yes -Necrosis Amt Medium (34-66%) Medium (34-66%) Small (1-33%) -Necrotic Tissue Type Adherent Slough Adherent Slough Adherent Slough -Structure Exposed N/A -Texture (Sandra-wound Skin Appearance) Assessed Assessed,Callus Assessed,Callus ,Scarring -Moisture (Sandra-wound Skin Appearance) Maceration No Abnormality, Assessed,Dry/ Assessed Scaly -Color (Sanrda-wound Skin Appearance) Assessed No Abnormality, Assessed Assessed -Temperature (Sandra-wound Skin No Abnormality No Abnormality Appearance) (Pt Warm) (Pt Warm) -Tenderness on Palpation (Sandra-wound Yes No Skin Appearance) -Ulcer Cleansing Rinsed/ Rinsed/ soapy water Irrigated with Irrigated with Saline Saline -Foul Odor after Cleansing No No -Anesthetic Used 5% Lidocaine 5% Lidocaine 5% Lidocaine Gel Gel Gel WC - Nurse 2 - General Ulcer CM Notes Start: 03/17/21 15:14 Freq: Status: Active Protocol: Activity Type Activity Date Activity User E-Sign Co-Sign Detail Recorded Client Recorded Date Recorded By Document 03/17/21 15:35 MW Desktop 03/17/21 15:44 MW Document 03/24/21 15:29 MW [id number] 03/24/21 15:38 MW Document 03/30/21 15:38 [id number] 03/30/21 15:48 03/17/21 03/24/21 03/30/21 15:35 15:29 15:38 Wound Center Nurse 2 #1 Left Heel -Time 15:38 15:30 15:39 -Correct Patient Yes Yes Yes -Correct Side, Site, Position Yes Yes Yes -Correct Procedure Yes Yes Yes -Procedure Performed Yes Yes Yes -Type of Procedure Debridement Debridement Debridement -Clinical Debridement Subcutaneous Subcutaneous Subcutaneous -Tissue Removed Subcutaneous Subcutaneous Subcutaneous -Post Debridement (cm) - Length 1.0 2.0 1.2 -Post Debridement (cm) - Width 1.0 1.0 0.5 -Post Debridement (cm) - Depth 0.6 0.8 0.3 -Total Square (Post) (cm) 1.00 2.00 0.60 -Area of Debridement (cm) - Length 1.0 2.0 1.2 -Area of Debridement (cm) - Width 1.0 1.0 0.5 -Total Square (Area) (cm) 1.00 2.00 0.60 -Tunneling Yes No No -Tunneling Position (O'clock) 6 -Tunneling Distance (cm) 2.5 -Undermining/Tunneling No No No -Circular Undermining No No No -Wound/Ulcer Outcome Not Healed Not Healed Not Healed -Ulcer Cleansing Rinsed/ Rinsed/ Rinsed/ Irrigated with Irrigated with Irrigated with Saline Saline Saline -Foul Odor after Cleansing No No No -Bioengineered Tissue No No No -Bleeding Controlled with Pressure Pressure Pressure -Offloading No No Yes -Type of Offloading Camwalker -Treatment Response Procedure Procedure Procedure Tolerated Well Tolerated Well Tolerated Well -Debridement - Subq, 1st 20sq cm Yes Yes Yes Pain Scale: 0-10 Numeric Is Patient Pain Free? Yes Yes - Nurse 3 - General Ulcer D/C NN Start: 03/17/21 15:14 Freq: Status: Active Protocol: Activity Type Activity Date Activity User E-Sign Co-Sign Detail Recorded Client Recorded Date Recorded By Document 03/17/21 15:56 AK Desktop 03/17/21 15:57 AK Document 03/24/21 15:49 DL [id number] 03/24/21 15:50 DL Document 03/30/21 15:51 RB [id number] 03/30/21 15:52 RB 03/17/21 03/24/21 03/30/21 15:56 15:49 15:51 Wound Care Nurse 3 #1 Left Heel -Ulcer Cleansing Rinsed/ Rinsed/ Rinsed/ Irrigated with Irrigated with Irrigated with Saline Saline Saline -Foul Odor after Cleansing No No -Primary Dressing Applied Mepilex Border, Mepilex Border, Aquacel AG 4x4 Silvercel Silvercel -Primary Dressing Covered/Secured with Dry Gauze,Dry Gauze & Roll Gauze,Secured with Tape -Aquacel AG 4x4 1 -Mepilex Border 1 1 -Silvercel 1 1 Treatment Response Procedure Procedure Tolerated Well Tolerated Well Pain Scale: 0-10 Numeric Is Patient Pain Free? Yes Yes - Visit Discharge Discharge Condition Stable Stable Stable Ambulatory Status Ambulatory Ambulatory Ambulatory Transportation Private Auto Private Auto Medication Reconcilliation completed & No provided to patient/care provider Clinical Summary of Care Provided Yes Yes Wound debrided: Plantar left foot (heal) Wound Grade/Stage: 2 Type of Debridement: Excisional debridement Anesthesia Used: 4% Lidocaine Solution Depth: in the subcutaneous layer Percentage of wound debrided: 100 Instrument Used: #15 blade Tissue Removed: fibrous, devitalized subcutaneous, biofilm, slough Severity: Fat Layer Exposed Amount of bleeding with debridement: Mild Bleeding Controlled with: Pressure Patient tolerated procedure: Patient tolerated procedure well Assessment/Plan Assessment/Plan (1) Diabetic ulcer of left foot: CODE(S): E11.621 - Type 2 diabetes mellitus with foot ulcer; L97.529 - Non-pressure chronic ulcer of other part of left foot with unspecified severity (2) Uncontrolled type 2 diabetes mellitus: CODE(S): E11.65 - Type 2 diabetes mellitus with hyperglycemia (3) HTN (hypertension): CODE(S): I10 - Essential (primary) hypertension (4) Non-pressure chronic ulcer of other part of left foot limited to breakdown of skin: CODE(S): L97.521 - Non-pressure chronic ulcer of other part of left foot limited to breakdown of skin (5) Cellulitis of left lower limb: CODE(S): L03.116 - Cellulitis of left lower limb (6) Puncture wound of left foot: CODE(S): S91.332A - Puncture wound without foreign body, left foot, initial encounter PLAN: I reviewed and discussed his case. Debridement performed today in clinic as annotated above. Silver cell covered with [place] SAP foam dressing applied. At home wound-care instructions: Silver cell cover with [place] SAP foam dressing and continue with CAM Walker for offloading. Did also recommend a knee scooter for better offloading. He was advised on where to get this. Change dressing once daily or more frequently as needed due to contamination. Wash wounds daily with antibacterial soap and water, rinse and dry thoroughly before each dressing change. Did discuss different offloading measures to consider as well. Compression: Tubigrip recommended to control edema. To elevate. Arterial work-up: He had noninvasive vascular studies which demonstrated normal perfusion. Diet: Patient encouraged to increase protein intake while taking caution to avoid high carbohydrate and/or sugar intake. I recommend Teja nutritional supplementation optimize healing. Labs/cultures/imaging: Cultures ordered previously and patient started on cipro based on sensitivity, second culture was reviewed and showed strep and Enterococcus and patient was placed on Augmentin. This was completed and he has no local signs of infection today. I do not recommend refill. Routine baseline lab work reviewed as noted above. Repeat lab work including CBC and CMP and foot x-rays were ordered today. His images and reports will be requested from the initial hospital that he had CT scan performed ([facility]) patient was given information to schedule with new primary care for management of his hypertension and diabetes. His risk factors are noted and he is at risk for delayed healing or continued infection. We discussed it is imperative that he controls his glucose levels. I recommend time off work to allow appropriate healing. Follow-up: Return to clinic in 1 week for re-evaluation. Return sooner or report to the emergency room should symptoms worsen, or new symptoms arise. This note was generated with zappit dictation software. It may contain incorrect words, spelling, and punctuation that were not noted in checking the note before signing. The medical decision making level is moderate based on data including at least three of the following: review of prior external notes, review of a test, ordering a test, assessment requiring an independent historian. The medical decision making level is moderate. There is noted moderate risk of morbidity after considering this treatment plan and diagnostic data. Considerations were given to prescription management, decisions regarding surgical options, or social determinants of health. The problems addressed require a moderate decision making level which includes one or more chronic illnesses (w/ exacerbation, progression, or side effects), two or more stable chronic illnesses, one undiagnosed new problem w/ uncertain prognosis, one acute illness with systemic symptoms, or one acute complicated injury.
--- NOTE | 2021-03-30 16:15 | RAD_ITS ---
STUDY: X-RAY - LEFT FOOT CLINICAL: Male, 50 years old. Puncture wound on left heel with ulceration. TECHNIQUE: 3 view(s) of the foot. COMPARISON: None. FINDINGS: Superior and inferior calcaneal spurs. Large talar beak. Mild arthrosis of the subtalar joint. Normal metatarsi. Mild arthrosis of the MTP and IP joints.. The soft tissue structures are unremarkable. RAD/Foot min 3 Views IMPRESSION: Calcaneal spurs, talar beak and osteoarthritic changes. No acute abnormality or evidence of bony erosion to suggest osteomyelitis. Electronically Signed: Justin Wallis MD at 10:31 EDT , Service support ,
[2021-03-30 17:13] LABS: Absolute Lymphocyte Count 2.54 X10^3/uL (0.83-4.51); Absolute Neutrophil Count 4.4 X10^3/uL (2.0-7.7); Basophil# 0.04 X10^3/uL; Basophil% 0.5 % (0-1); Eosinophil# 0.27 X10^3/uL; Eosinophils% 3.5 % (0-5); Hematocrit 45.7 % (40-54); Hemoglobin 15.4 g/dL (13.0-16.5); Lymphocyte # 2.54 X10^3/ul (0.83-4.51); Lymphocyte % 32.6 % (19-41); Mean Corp Hgb Conc 33.7 g/dL (32-36); Mean Corpuscular Hgb 30.1 pg (27.0-32.0); Mean Corpuscular Volume 89.4 fL (80-94); Mean Platelet Vol. 10.4 fl (6.2-12.0); Monocyte% 6.4 % (0-10); NRBC Flagged by Analyzer 0 % (0-5); Neutrophil # 4.41 X10^3/uL (2.7-7.7); Neutrophil % 56.7 % (47-70); Platelet Count 274 K/mm3 (150-450); RBC Distribution Width CV 12.7 % (11.6-14.6); RBC Distribution Width SD 41.4 fl (35.1-43.9); Red Blood Count 5.11 M/mm3 (4.6-6.2); White Blood Count 7.8 K/mm3 (4.4-11.0)
[2021-03-30 17:51] LABS: AST(SGOT) 23 U/L (15-37); Alanine Aminotransfer ALT/SGPT 48 U/L (16-61); Albumin, Serum 3.9 g/dL (3.2-5.0); Alkaline Phosphatase 59 U/L (45-117); Anion Gap 9 (5-15); BUN 17 mg/dL (7-18); BUN/Creat Ratio 17.2 RATIO (10-20); Chloride 102 mmol/L (98-107); Creatinine, Serum 0.99 mg/dL (0.70-1.30); EST Glomerular Filtration Rate 85 mL/min (>60); Est Glom Filt Rate - Afr Amer 103 mL/min (>60); Globulin 4.1 g/dL (2.2-4.2); Glucose 115 mg/dL (74-106); Sodium Level 138 mmol/L (136-145)
[2021-04-06 15:27] VITALS: BP 163/84; PULSE 70; RESP 16; TEMP 36.8; BMI 40.0
--- NOTE | 2021-04-06 16:51 | PCM.WC.PN ---
History of Present Illness Date of Service: 04/06/21 Chief Complaint: Diabetic foot ulcer left heel History of Wound: A 50-year-old white male with a past medical history of diabetes and hypertension who presents to the wound healing center today with complaint of a diabetic foot ulcer to his left heel present for the last 2 months. The patient initially went to the emergency department on 01/24/2021 at [facility] and had a CT of his foot done at that time which showed a soft tissue puncture wound in the heel with no soft tissue gas or radiopaque foreign body and no acute fracture. No lytic or blastic bony lesions seen. At the time, the patient was unsure if he actually stepped on something to cause the puncture wound. He was taking Keflex and Bactrim and has a couple days supply left. He denies odor, redness, fever, chills, nausea, vomiting. Per chart review, Apparently his most recent A1c was 14.5. He has been off of work and he thinks this has contributed to significant reduction in ulcer size. He reports less drainage. He has been changing the dressing as advised. Progress of Wound: Improving Objective Data Objective Data Vital Signs: Vital Signs Temp Pulse Resp BP 98.2 F 70 16 163/84 H 04/06/21 15:27 04/06/21 15:27 04/06/21 15:27 04/06/21 15:27 Oxygen Delivery Method Room Air Body Mass Index (BMI) 40.0 Lab / Micro Data Result Diagrams: 03/30/21 16:06 03/30/21 16:06 Physical Exam Const alert and oriented x3 General Appearance: cooperative HEENT normocephalic Extremity Extremity Narrative: No calf tenderness Diminished pulses Muscle wasting noted General Extremity: edema and no tenderness to palpation of joints or extremities; Negative for cyanosis Skin Skin Narrative: Vera grade 2 diabetic foot ulcer to left heel with large amounts of callus and adherent slough, no signs of obvious infection at this time, no purulent drainage or redness or streaking, after debridement wound bed is beefy red and granular, after significant amount of callused skin was removed there is no longer any undermining present. no deep probing. No deep probing, eschar, necrosis. Adjacent skin is atrophic. Palpable DP pulse No bogginess or fluctuance on palpation Active range of motion of toes. Compartments remain soft to this limb. General Skin Exam: Negative for erythema Neuro Neuro Narrative: lack of normal epicritic sensation via light touch is consistent with neuropathy status Sensorium / Orientation: awake, alert, oriented to person and oriented to place Psych cooperative and affect normal Debridement Note Debridement Note Post-Debridement Measurements and Additional Note: Post-Debridement Measurements/Treatment WC - Nurse 1 - General Ulcer Assessment Start: 03/17/21 15:14 Freq: Status: Active Protocol: LUIS F.LOWNATALIET Activity Type Activity Date Activity User E-Sign Co-Sign Detail Recorded Client Recorded Date Recorded By Document 03/17/21 15:14 ML Desktop 03/17/21 15:22 ML Document 03/24/21 14:57 AK [id number] 03/24/21 15:09 AK Document 03/30/21 15:16 AK Desktop 03/30/21 15:23 AK Document 04/06/21 15:27 AK [id number] 04/06/21 15:30 AK 03/17/21 03/24/21 03/30/21 15:14 14:57 15:16 WC - Today's Visit Information Type of service Follow-up Visit Follow-up Visit Follow-up Visit (Physician/DIRECTOR MEDICAL (Physician/DIRECTOR MEDICAL (Physician/DIRECTOR MEDICAL ) ) ) Arrival Mode Ambulatory Ambulatory Ambulatory Transfer Assistance None Patient Identification Verified (Name & Yes Yes ) Patient Requires Transmission-Based No No Precautions Safety Precautions NA Height and Weight Body Mass Index (BMI) 40.0 40.0 40.0 BMI Classification Obese Obese Obese Vital Signs Temperature (97.8 F-99.1 F) 97.1 F L 97.7 F L Temperature Source Temporal Temporal Pulse Rate (60-100) 55 L 65 Pulse Location Monitor Respiratory Rate (12-18) 16 18 Respiratory rate source Observation Observation Oxygen Delivery Method Room Air Blood Pressure (90/60-120/80) 126/73 H 147/86 H 136/62 H Blood Pressure Mean (mm Hg) 90 106 86 Source Monitor Monitor Monitor Position Sitting Sitting Blood Pressure Location Left Arm Left Arm History Since Last Visit- (Skip if this is Patient's initial visit) Have you changed medications since your No No No last visit? Any new allergies or adverse reactions No No No Had a fall/change in ADL's that may No No No increase risk of falls Signs or symptoms of abuse and/or No No No neglect since last visit Have you been in the hospital since your No No No last visit? Has dressing in place as prescribed Yes Yes Yes Has compression in place as prescribed N/A N/A N/A Has offloadiing in place as prescribed N/A N/A N/A Experienced any changes in pain level or No No management Left Footwear Removable Cast Regular Shoe Multipodus Walker/Walking Splint/Boot Boot Right Footwear Regular Shoe Removable Cast Regular Shoe Walker/Walking Boot Pain Scale: 0-10 Numeric Is Patient Pain Free? Yes Yes 04/06/21 15:27 WC - Today's Visit Information Type of service Follow-up Visit (Physician/DIRECTOR MEDICAL ) Arrival Mode Ambulatory Transfer Assistance Transfer Board Patient Identification Verified (Name & Yes ) Patient Requires Transmission-Based No Precautions Safety Precautions Height and Weight Body Mass Index (BMI) 40.0 BMI Classification Obese Vital Signs Temperature (97.8 F-99.1 F) 98.2 F Temperature Source Temporal Pulse Rate (60-100) 70 Pulse Location Monitor Respiratory Rate (12-18) 16 Respiratory rate source Observation Oxygen Delivery Method Room Air Blood Pressure (90/60-120/80) 163/84 H Blood Pressure Mean (mm Hg) 110 Source Monitor Position Sitting Blood Pressure Location Right Arm History Since Last Visit- (Skip if this is Patient's initial visit) Have you changed medications since your No last visit? Any new allergies or adverse reactions No Had a fall/change in ADL's that may No increase risk of falls Signs or symptoms of abuse and/or No neglect since last visit Have you been in the hospital since your No last visit? Has dressing in place as prescribed Yes Has compression in place as prescribed N/A Has offloadiing in place as prescribed N/A Experienced any changes in pain level or No management Left Footwear Removable Cast Walker/Walking Boot Right Footwear Regular Shoe Pain Scale: 0-10 Numeric Is Patient Pain Free? Yes - Nurse 1 - General Ulcer Measurement Start: 03/17/21 15:14 Freq: Status: Active Protocol: Activity Type Activity Date Activity User E-Sign Co-Sign Detail Recorded Client Recorded Date Recorded By Document 03/17/21 15:14 ML Desktop 03/17/21 15:22 ML Document 03/24/21 14:57 AK [id number] 03/24/21 15:09 AK Document 03/30/21 15:16 AK Desktop 03/30/21 15:23 AK Document 04/06/21 15:27 AK [id number] 04/06/21 15:30 AK 03/17/21 03/24/21 03/30/21 15:14 14:57 15:16 Wound Center Nurse 1 #1 Left Heel -Combined with other wound No -Current Size (cm) - Length 0.5 0.7 0.7 -Current Size (cm) - Width 0.5 0.7 0.4 -Current Size (cm) - Depth 0.8 0.5 0.1 -Total Square Cm 0.25 0.49 0.28 -Photo Taken No -Epithelialization None Present -Tunneling Yes No -Tunneling Position (O'clock) 11 -Tunneling Distance (cm) 0.5 -Tunneling Position #2 (O'clock) 12 -Undermining/Tunneling Yes No -Undermining/Tunneling Starts (O'clock 4 ) -Undermining/Tunneling Ends (O'clock) 6 -Maximum Distance (cm) 0.3 -Circular Undermining No -Exudate Amt Medium Medium Medium -Exudate Type Serosanguineous Serosanguineous Serosanguineous -Wound Margin Distinct, Distinct, Distinct, Outline Outline Outline Attached Attached Attached -Granulation Amt Medium (34-66%) Medium (34-66%) Medium (34-66%) -Granulation Quality Red Red -Slough/Fibrin Yes Yes Yes -Necrosis Amt Medium (34-66%) Medium (34-66%) Small (1-33%) -Necrotic Tissue Type Adherent Slough Adherent Slough Adherent Slough -Structure Exposed N/A -Texture (Sandra-wound Skin Appearance) Assessed Assessed,Callus Assessed,Callus ,Scarring -Moisture (Sandra-wound Skin Appearance) Maceration No Abnormality, Assessed,Dry/ Assessed Scaly -Color (Sandra-wound Skin Appearance) Assessed No Abnormality, Assessed Assessed -Temperature (Sandra-wound Skin No Abnormality No Abnormality Appearance) (Pt Warm) (Pt Warm) -Tenderness on Palpation (Sandra-wound Yes No Skin Appearance) -Ulcer Cleansing Rinsed/ Rinsed/ soapy water Irrigated with Irrigated with Saline Saline -Foul Odor after Cleansing No No -Anesthetic Used 5% Lidocaine 5% Lidocaine 5% Lidocaine Gel Gel Gel 04/06/21 15:27 Wound Center Nurse 1 #1 Left Heel -Combined with other wound No -Current Size (cm) - Length 1 -Current Size (cm) - Width 0.4 -Current Size (cm) - Depth 0.2 -Total Square Cm 0.4 -Photo Taken No -Epithelialization Small 1-33% -Tunneling No -Tunneling Position (O'clock) -Tunneling Distance (cm) -Tunneling Position #2 (O'clock) -Undermining/Tunneling No -Undermining/Tunneling Starts (O'clock ) -Undermining/Tunneling Ends (O'clock) -Maximum Distance (cm) -Circular Undermining No -Exudate Amt Small -Exudate Type Serosanguineous -Wound Margin Distinct, Outline Attached -Granulation Amt Large (67-100%) -Granulation Quality [place] -Slough/Fibrin Yes -Necrosis Amt Small (1-33%) -Necrotic Tissue Type Adherent Slough -Structure Exposed -Texture (Sandra-wound Skin Appearance) Assessed, Scarring -Moisture (Sandra-wound Skin Appearance) Assessed -Color (Sandra-wound Skin Appearance) Assessed -Temperature (Sandra-wound Skin No Abnormality Appearance) (Pt Warm) -Tenderness on Palpation (Sandra-wound No Skin Appearance) -Ulcer Cleansing Rinsed/ Irrigated with Saline -Foul Odor after Cleansing No -Anesthetic Used 5% Lidocaine Gel WC - Nurse 2 - General Ulcer CM Notes Start: 03/17/21 15:14 Freq: Status: Active Protocol: Activity Type Activity Date Activity User E-Sign Co-Sign Detail Recorded Client Recorded Date Recorded By Document 03/17/21 15:35 MW Desktop 03/17/21 15:44 MW Document 03/24/21 15:29 MW [id number] 03/24/21 15:38 MW Document 03/30/21 15:38 JF [id number] 03/30/21 15:48 JF Document 04/06/21 15:55 JF [id number] 04/06/21 15:58 JF 03/17/21 03/24/21 03/30/21 15:35 15:29 15:38 Wound Center Nurse 2 #1 Left Heel -Time 15:38 15:30 15:39 -Correct Patient Yes Yes Yes -Correct Side, Site, Position Yes Yes Yes -Correct Procedure Yes Yes Yes -Procedure Performed Yes Yes Yes -Type of Procedure Debridement Debridement Debridement -Clinical Debridement Subcutaneous Subcutaneous Subcutaneous -Tissue Removed Subcutaneous Subcutaneous Subcutaneous -Post Debridement (cm) - Length 1.0 2.0 1.2 -Post Debridement (cm) - Width 1.0 1.0 0.5 -Post Debridement (cm) - Depth 0.6 0.8 0.3 -Total Square (Post) (cm) 1.00 2.00 0.60 -Area of Debridement (cm) - Length 1.0 2.0 1.2 -Area of Debridement (cm) - Width 1.0 1.0 0.5 -Total Square (Area) (cm) 1.00 2.00 0.60 -Tunneling Yes No No -Tunneling Position (O'clock) 6 -Tunneling Distance (cm) 2.5 -Undermining/Tunneling No No No -Circular Undermining No No No -Wound/Ulcer Outcome Not Healed Not Healed Not Healed -Ulcer Cleansing Rinsed/ Rinsed/ Rinsed/ Irrigated with Irrigated with Irrigated with Saline Saline Saline -Foul Odor after Cleansing No No No -Bioengineered Tissue No No No -Bleeding Controlled with Pressure Pressure Pressure -Offloading No No Yes -Type of Offloading Camwalker -Treatment Response Procedure Procedure Procedure Tolerated Well Tolerated Well Tolerated Well -Debridement - Subq, 1st 20sq cm Yes Yes Yes Pain Scale: 0-10 Numeric Is Patient Pain Free? Yes Yes 04/06/21 15:55 Wound Center Nurse 2 #1 Left Heel -Time 15:56 -Correct Patient Yes -Correct Side, Site, Position Yes -Correct Procedure Yes -Procedure Performed Yes -Type of Procedure Debridement -Clinical Debridement Subcutaneous -Tissue Removed Subcutaneous -Post Debridement (cm) - Length 1.2 -Post Debridement (cm) - Width 0.5 -Post Debridement (cm) - Depth 0.2 -Total Square (Post) (cm) 0.60 -Area of Debridement (cm) - Length 1.2 -Area of Debridement (cm) - Width 0.5 -Total Square (Area) (cm) 0.60 -Tunneling No -Tunneling Position (O'clock) -Tunneling Distance (cm) -Undermining/Tunneling No -Circular Undermining No -Wound/Ulcer Outcome Not Healed -Ulcer Cleansing Rinsed/ Irrigated with Saline -Foul Odor after Cleansing No -Bioengineered Tissue No -Bleeding Controlled with Pressure -Offloading Yes -Type of Offloading Camwalker -Treatment Response Procedure Tolerated Well -Debridement - Subq, 1st 20sq cm Yes Pain Scale: 0-10 Numeric Is Patient Pain Free? Yes - Nurse 3 - General Ulcer D/C NN Start: 03/17/21 15:14 Freq: Status: Active Protocol: Activity Type Activity Date Activity User E-Sign Co-Sign Detail Recorded Client Recorded Date Recorded By Document 03/17/21 15:56 AK Desktop 03/17/21 15:57 AK Document 03/24/21 15:49 DL [id number] 03/24/21 15:50 DL Document 03/30/21 15:51 RB [id number] 03/30/21 15:52 RB Document 04/06/21 16:02 BMF [id number] 04/06/21 16:02 BMF 03/17/21 03/24/21 03/30/21 15:56 15:49 15:51 Wound Care Nurse 3 #1 Left Heel -Ulcer Cleansing Rinsed/ Rinsed/ Rinsed/ Irrigated with Irrigated with Irrigated with Saline Saline Saline -Foul Odor after Cleansing No No -Primary Dressing Applied Mepilex Border, Mepilex Border, Aquacel AG 4x4 Silvercel Silvercel -Primary Dressing Covered/Secured with Dry Gauze,Dry Gauze & Roll Gauze,Secured with Tape -Other Covering -Aquacel AG 4x4 1 -Mepilex Border 1 1 -Silvercel 1 1 Treatment Response Procedure Procedure Tolerated Well Tolerated Well Pain Scale: 0-10 Numeric Is Patient Pain Free? Yes Yes WC - Visit Discharge Discharge Condition Stable Stable Stable Ambulatory Status Ambulatory Ambulatory Ambulatory Transportation Private Auto Private Auto Medication Reconcilliation completed & No provided to patient/care provider Clinical Summary of Care Provided Yes Yes 04/06/21 16:02 Wound Care Nurse 3 #1 Left Heel -Ulcer Cleansing Rinsed/ Irrigated with Saline -Foul Odor after Cleansing No -Primary Dressing Applied Aquacel AG 4x4 -Primary Dressing Covered/Secured with Dry Gauze & Roll Gauze, Secured with Tape -Other Covering DRSG PER IN MEDICAL RECORD ASSISTANT -Aquacel AG 4x4 1 -Mepilex Border -Silvercel Treatment Response Procedure Tolerated Well Pain Scale: 0-10 Numeric Is Patient Pain Free? Yes WC - Visit Discharge Discharge Condition Stable Ambulatory Status Ambulatory Transportation Private Auto Medication Reconcilliation completed & provided to patient/care provider Clinical Summary of Care Provided Wound debrided: left heel Wound Grade/Stage: 1 Type of Debridement: Excisional debridement Anesthesia Used: 4% Lidocaine Solution Depth: in the subcutaneous layer Percentage of wound debrided: 100 Instrument Used: #15 blade Tissue Removed: fibrous, devitalized subcutaneous, biofilm, slough Severity: Fat Layer Exposed Amount of bleeding with debridement: Mild Bleeding Controlled with: Pressure Patient tolerated procedure: Patient tolerated procedure well Assessment/Plan Assessment/Plan (1) Diabetic ulcer of left foot: CODE(S): E11.621 - Type 2 diabetes mellitus with foot ulcer; L97.529 - Non-pressure chronic ulcer of other part of left foot with unspecified severity (2) Uncontrolled type 2 diabetes mellitus: CODE(S): E11.65 - Type 2 diabetes mellitus with hyperglycemia (3) HTN (hypertension): CODE(S): I10 - Essential (primary) hypertension (4) Cellulitis of left lower limb: CODE(S): L03.116 - Cellulitis of left lower limb (5) Puncture wound of left foot: CODE(S): S91.332A - Puncture wound without foreign body, left foot, initial encounter (6) Non-pressure chronic ulcer of other part of left foot with fat layer exposed: CODE(S): L97.522 - Non-pressure chronic ulcer of other part of left foot with fat layer exposed PLAN: I reviewed and discussed his case. Debridement performed today in clinic as annotated above. Continue to change dressing daily with silver product and cover with gauze. At home wound-care instructions: Silver cell cover with [place] SAP foam dressing and continue with CAM Walker for offloading. Did also recommend a knee scooter for better offloading. Change dressing once daily or more frequently as needed due to contamination. Wash wounds daily with antibacterial soap and water, rinse and dry thoroughly before each dressing change. Compression: Tubigrip recommended to control edema. To elevate. Arterial work-up: He had noninvasive vascular studies which demonstrated normal perfusion. Diet: Patient encouraged to increase protein intake while taking caution to avoid high carbohydrate and/or sugar intake. I recommend Teja nutritional supplementation optimize healing. Labs/cultures/imaging: Cultures ordered previously and patient started on cipro based on sensitivity, second culture was reviewed and showed strep and Enterococcus. This was completed and he has no local signs of infection today. I do not recommend refill; to complete the initial course. Routine baseline lab work reviewed as noted above. Repeat lab work including CBC and CMP and foot x-rays were ordered recently. No additional progressive changes are noted on the plain x-rays. Labs are normal without leukocytosis. His images and reports were requested from the initial hospital that he had CT scan performed ([facility]) and these were reviewed personally without evidence of osseous destruction adjacent to the ulcer and suspected puncture wound site. No foreign body noted. His risk factors are noted and he is at risk for delayed healing or continued infection. We discussed it is imperative that he controls his glucose levels. I recommend time off work to allow appropriate healing. Follow-up: Return to clinic in 1 to 2 weeks for re-evaluation. Return sooner or report to the emergency room should symptoms worsen, or new symptoms arise. This note was generated with [employer] dictation software. It may contain incorrect words, spelling, and punctuation that were not noted in checking the note before signing. The medical decision making level is limited based on data including the review of prior external notes, review of a prior test, or ordering a test. The medical decision making level is low. There is noted low risk of morbidity after considering this treatment plan and diagnostic data.
== END 2021-04-12 23:59 ==
LOC: WC 15:30
PROVIDERS: PCP Student in an Organized Health Care Education/Training Program; Visit Provider Nurse Practitioner Family
DX: E11.621 Type 2 diabetes mellitus with foot ulcer (principal); L97.522 Non-pressure chronic ulcer of other part of left foot with fat layer exposed; E11.65 Type 2 diabetes mellitus with hyperglycemia; L03.116 Cellulitis of left lower limb; I10 Essential (primary) hypertension
CPT/HCPCS: 11042; 36415; 73630; 80053; 85025; 93923; 93970

== ENCOUNTER 2021-05-11 14:30 | Outpatient (RCR) | payer SELFPAY ==
[2021-04-13 00:19] VITALS: BP 163/84; PULSE 70; RESP 16; TEMP 36.8; BMI 40.0
[2021-04-20 15:10] VITALS: BP 129/81; PULSE 58; RESP 18; TEMP 36.2; BMI 40.0
--- NOTE | 2021-04-20 15:44 | PN.PCM_ITS ---
History of Present Illness Date of Service: 04/20/21 Chief Complaint: Diabetic foot ulcer left heel History of Wound: A 50-year-old white male with a past medical history of diabetes and hypertension who presents to the wound healing center today with complaint of a diabetic foot ulcer to his left heel present for the last 2 months. The patient initially went to the emergency department on 01/24/2021 at [facility] and had a CT of his foot done at that time which showed a soft tissue puncture wound in the heel with no soft tissue gas or radiopaque foreign body and no acute fracture. No lytic or blastic bony lesions seen. At the time, the patient was unsure if he actually stepped on something to cause the puncture wound. He was taking Keflex and Bactrim and this has been completed. He denies odor, redness, fever, chills, nausea, vomiting. He has been making a great effort to get his glucose levels down and he was around 150 mg/dL this morning. He has been offloading with a cam walker boot and has significantly reduced his work tasks. He is eager for this to heal as fast as possible so he can return to work. Progress of Wound: Significant improvement Objective Data Objective Data Vital Signs: Vital Signs Temp Pulse Resp BP 97.1 F L 58 L 18 129/81 H 04/20/21 15:10 04/20/21 15:10 04/20/21 15:10 04/20/21 15:10 Oxygen Delivery Method Room Air Body Mass Index (BMI) 40.0 Physical Exam Const alert and oriented x3 General Appearance: cooperative HEENT normocephalic Extremity Extremity Narrative: No calf tenderness Diminished pulses Muscle wasting noted General Extremity: edema and no tenderness to palpation of joints or extremities; Negative for cyanosis Skin Skin Narrative: Vera grade 2 diabetic foot ulcer to left heel with minimal amounts of callus and no slough, no signs of obvious infection at this time, no purulent drainage or redness or streaking, after debridement wound bed is beefy red and granular. no deep probing. No deep probing, eschar, necrosis. Adjacent skin is atrophic. 100% beefy red granular base noted. Palpable DP pulse No bogginess or fluctuance on palpation Active range of motion of toes. Compartments remain soft to this limb. General Skin Exam: Negative for erythema Neuro Neuro Narrative: lack of normal epicritic sensation via light touch is consistent with neuropathy status Sensorium / Orientation: awake, alert, oriented to person and oriented to place Psych cooperative and affect normal Debridement Note Debridement Note Wound debrided: plantar left heel Wound Grade/Stage: 2 Type of Debridement: Excisional debridement Anesthesia Used: 4% Lidocaine Solution Depth: in the subcutaneous layer Percentage of wound debrided: 100 Instrument Used: #15 blade Tissue Removed: fibrous, devitalized subcutaneous, biofilm, slough Severity: Fat Layer Exposed Amount of bleeding with debridement: Mild Bleeding Controlled with: Pressure Patient tolerated procedure: Patient tolerated procedure well Post-Debridement Measurements and Additional Note: Post-Debridement Measurements/Treatment - Nurse 1 - General Ulcer Assessment Start: 04/20/21 15:10 Freq: Status: Active Protocol: GENARO Activity Type Activity Date Activity User E-Sign Co-Sign Detail Recorded Client Recorded Date Recorded By Document 04/20/21 15:10 [facility] [id number] 04/20/21 15:16 [facility] 04/20/21 15:10 - Today's Visit Information Type of service 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 ) Arrival Mode Ambulatory Transfer Assistance None Patient Identification Verified (Name & Yes ) Patient Requires Transmission-Based No Precautions Height and Weight Body Mass Index (BMI) 40.0 BMI Classification Obese Vital Signs Temperature (97.8 F-99.1 F) 97.1 F L Temperature Source Temporal Pulse Rate (60-100) 58 L Pulse Location Monitor Respiratory Rate (12-18) 18 Respiratory rate source Observation Oxygen Delivery Method Room Air Blood Pressure (90/60-120/80) 129/81 H Blood Pressure Mean (mm Hg) 97 Source Monitor Position Sitting Blood Pressure Location Left Arm History Since Last Visit- (Skip if this is Patient's initial visit) Have you changed medications since your No last visit? Any new allergies or adverse reactions No Had a fall/change in ADL's that may No increase risk of falls Signs or symptoms of abuse and/or No neglect since last visit Have you been in the hospital since your No last visit? Has dressing in place as prescribed Yes Has compression in place as prescribed N/A Has offloadiing in place as prescribed Yes Experienced any changes in pain level or No management Left Footwear Multipodus Splint/Boot Right Footwear Regular Shoe Pain Scale: 0-10 Numeric Is Patient Pain Free? Yes - Nurse 1 - General Ulcer Measurement Start: 04/20/21 15:10 Freq: Status: Active Protocol: Activity Type Activity Date Activity User E-Sign Co-Sign Detail Recorded Client Recorded Date Recorded By Document 04/20/21 15:10 [facility] [id number] 04/20/21 15:16 [facility] 04/20/21 15:10 Wound Center Nurse 1 #1 Left Heel -Combined with other wound No -Current Size (cm) - Length 1 -Current Size (cm) - Width 0.2 -Current Size (cm) - Depth 0.7 -Total Square Cm 0.2 -Photo Taken No -Epithelialization None Present -Tunneling No -Undermining/Tunneling No -Circular Undermining No -Exudate Amt Medium -Exudate Type Purulent -Wound Margin Distinct, Outline Attached -Granulation Amt Medium (34-66%) -Granulation Quality Red -Slough/Fibrin Yes -Necrosis Amt Small (1-33%) -Necrotic Tissue Type Adherent Slough -Texture (Sandra-wound Skin Appearance) Assessed,Callus ,Scarring -Moisture (Sandra-wound Skin Appearance) Assessed -Color (Sandra-wound Skin Appearance) Assessed -Temperature (Sandra-wound Skin No Abnormality Appearance) (Pt Warm) -Tenderness on Palpation (Sandra-wound No Skin Appearance) -Ulcer Cleansing soapy water -Foul Odor after Cleansing No -Anesthetic Used 5% Lidocaine Gel - Nurse 2 - General Ulcer CM Notes Start: 04/20/21 15:10 Freq: Status: Active Protocol: Activity Type Activity Date Activity User E-Sign Co-Sign Detail Recorded Client Recorded Date Recorded By Document 04/20/21 15:23 [id number] 04/20/21 15:24 04/20/21 15:23 Wound Center Nurse 2 -Time 15:24 -Correct Patient Yes -Correct Side, Site, Position Yes -Correct Procedure Yes -Procedure Performed Yes -Type of Procedure Debridement -Clinical Debridement Subcutaneous -Tissue Removed Subcutaneous -Post Debridement (cm) - Length 0.5 -Post Debridement (cm) - Width 0.3 -Post Debridement (cm) - Depth 0.1 -Total Square (Post) (cm) 0.15 -Area of Debridement (cm) - Length 0.5 -Area of Debridement (cm) - Width 0.3 -Total Square (Area) (cm) 0.15 -Tunneling No -Undermining/Tunneling No -Circular Undermining No -Wound/Ulcer Outcome Not Healed -Ulcer Cleansing Rinsed/ Irrigated with Saline -Foul Odor after Cleansing No -Bioengineered Tissue No -Bleeding Controlled with Pressure -Offloading No -Treatment Response Procedure Tolerated Well -Debridement - Subq, 1st 20sq cm Yes Pain Scale: 0-10 Numeric Is Patient Pain Free? Yes WC - Nurse 3 - General Ulcer D/C NN Start: 04/20/21 15:10 Freq: Status: Active Protocol: Activity Type Activity Date Activity User E-Sign Co-Sign Detail Recorded Client Recorded Date Recorded By Document 04/20/21 15:37 RB [id number] 04/20/21 15:37 RB 04/20/21 15:37 Wound Care Nurse 3 #1 Left Heel -Ulcer Cleansing Rinsed/ Irrigated with Saline -Primary Dressing Applied Aquacel AG 2x2 -Primary Dressing Covered/Secured with Dry Gauze,Dry Gauze & Roll Gauze,Secured with Tape -Aquacel AG 2x2 1 Treatment Response Procedure Tolerated Well Pain Scale: 0-10 Numeric Is Patient Pain Free? Yes WC - Visit Discharge Discharge Condition Stable Ambulatory Status Ambulatory Transportation Private Auto Medication Reconcilliation completed & No provided to patient/care provider Clinical Summary of Care Provided Yes Assessment/Plan Assessment/Plan (1) Diabetic ulcer of left foot: CODE(S): E11.621 - Type 2 diabetes mellitus with foot ulcer; L97.529 - Non-pressure chronic ulcer of other part of left foot with unspecified severity (2) Uncontrolled type 2 diabetes mellitus: CODE(S): E11.65 - Type 2 diabetes mellitus with hyperglycemia (3) HTN (hypertension): CODE(S): I10 - Essential (primary) hypertension (4) Cellulitis of left lower limb: CODE(S): L03.116 - Cellulitis of left lower limb (5) Puncture wound of left foot: CODE(S): S91.332A - Puncture wound without foreign body, left foot, initial encounter (6) Non-pressure chronic ulcer of other part of left foot with fat layer exposed: CODE(S): L97.522 - Non-pressure chronic ulcer of other part of left foot with fat layer exposed PLAN: I reviewed and discussed his case. Debridement performed today in clinic as noted above. Continue to change dressing daily with silver product and cover with gauze. At home wound-care instructions: Silver cell cover with [place] SAP foam dressing and continue with CAM Walker for offloading. Did also recommend a knee scooter for better offloading. Change dressing once daily or more frequently as needed due to contamination. Wash wounds daily with antibacterial soap and water, rinse and dry thoroughly before each dressing change. Compression: Tubigrip recommended to control edema. To elevate. Arterial work-up: He had noninvasive vascular studies which demonstrated normal perfusion. Diet: Patient encouraged to increase protein intake while taking caution to avoid high carbohydrate and/or sugar intake. I recommend Teja nutritional supplementation optimize healing. Labs/cultures/imaging: Cultures ordered previously and patient started on cipro based on sensitivity, second culture was reviewed and showed strep and Enterococcus. This was completed and he has no local signs of infection today. I do not recommend refill; to complete the initial course. Routine baseline lab work reviewed as noted above. Repeat lab work including CBC and CMP and foot x- rays were ordered recently. No additional progressive changes are noted on the plain x-rays. Labs are normal without leukocytosis. His images and reports were requested from the initial hospital that he had CT scan performed ([facility]) and these were reviewed personally without evidence of osseous destruction adjacent to the ulcer and suspected puncture wound site. No foreign body noted. His risk factors are noted and he is at risk for delayed healing or continued infection. We discussed it is imperative that he controls his glucose levels. I recommend continued time off work to allow appropriate healing. Follow-up: Return to clinic in 1 week for re-evaluation. Return sooner or report to the emergency room should symptoms worsen, or new symptoms arise. This note was generated with [employer] dictation software. It may contain incorrect words, spelling, and punctuation that were not noted in checking the note before signing.
[2021-04-27 14:28] VITALS: BP 175/65; PULSE 50; TEMP 36.3; BMI 40.0
--- NOTE | 2021-04-27 15:35 | PN.PCM_ITS ---
History of Present Illness Date of Service: 04/27/21 Chief Complaint: Diabetic foot ulcer left heel History of Wound: A 50-year-old white male with a past medical history of diabetes and hypertension who presents to the wound healing center today with complaint of a diabetic foot ulcer to his left heel present for the last 2 months. The patient initially went to the emergency department on 01/24/2021 at [facility] and had a CT of his foot done at that time which showed a soft tissue puncture wound in the heel with no soft tissue gas or radiopaque foreign body and no acute fracture. No lytic or blastic bony lesions seen. He completed a course of antibiotics and has been undergoing a comprehensive wound healing plan at the wound center. He denies odor, redness, fever, chills, nausea, vomiting. 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 He presents in a regular athletic sneaker today. Progress of Wound: Significant improvement Objective Data Objective Data Vital Signs: Vital Signs Temp Pulse Resp BP 97.4 F L 50 L 18 175/65 H 04/27/21 14:28 04/27/21 14:28 04/20/21 15:10 04/27/21 14:28 Oxygen Delivery Method Room Air Body Mass Index (BMI) 40.0 Physical Exam Extremity Extremity Narrative: No calf tenderness Diminished pulses Muscle wasting noted Skin Skin Narrative: Vera grade 2 diabetic foot ulcer to left heel with minimal amounts of callus and no slough, no signs of obvious infection at this time, no purulent drainage or redness or streaking, after debridement wound bed is beefy red and granular; reduced size. no deep probing. No deep probing, eschar, necrosis. Adjacent skin is atrophic. 100% beefy red granular base noted- reduced size noted. Palpable DP pulse No bogginess or fluctuance on palpation Active range of motion of toes. Compartments remain soft to this limb. Neuro Neuro Narrative: lack of normal epicritic sensation via light touch is consistent with neuropathy status Debridement Note Debridement Note Wound debrided: left heel Wound Grade/Stage: One Type of Debridement: Excisional debridement Anesthesia Used: 4% Lidocaine Solution Depth: in the subcutaneous layer Percentage of wound debrided: 100 Instrument Used: #15 blade Tissue Removed: fibrous, devitalized subcutaneous, biofilm, slough Severity: Fat Layer Exposed Amount of bleeding with debridement: Mild Bleeding Controlled with: Pressure Patient tolerated procedure: Patient tolerated procedure well Post-Debridement Measurements and Additional Note: Post-Debridement Measurements/Treatment LUIS F - Nurse 1 - General Ulcer Assessment Start: 04/20/21 15:10 Freq: Status: Active Protocol: GENARO Activity Type Activity Date Activity User E-Sign Co-Sign Detail Recorded Client Recorded Date Recorded By Document 04/20/21 15:10 [facility] [id number] 04/20/21 15:16 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 ) ) Arrival Mode Ambulatory Ambulatory Transfer Assistance None Patient Identification Verified (Name & Yes Yes ) Patient Requires Transmission-Based No Precautions Height and Weight Body Mass Index (BMI) 40.0 40.0 BMI Classification Obese Obese Vital Signs Temperature (97.8 F-99.1 F) 97.1 F L 97.4 F L Temperature Source Temporal Temporal Pulse Rate (60-100) 58 L 50 L Pulse Location Monitor Monitor Respiratory Rate (12-18) 18 Respiratory rate source Observation Oxygen Delivery Method Room Air Blood Pressure (90/60-120/80) 129/81 H 175/65 H Blood Pressure Mean (mm Hg) 97 101 Source Monitor Monitor Position Sitting Sitting Blood Pressure Location Left Arm Left Arm History Since Last Visit- (Skip if this is Patient's initial visit) Have you changed medications since your No No last visit? Any new allergies or adverse reactions No No Had a fall/change in ADL's that may No No increase risk of falls Signs or symptoms of abuse and/or No No neglect since last visit Have you been in the hospital since your No No last visit? Has dressing in place as prescribed Yes Yes Has compression in place as prescribed N/A N/A Has offloadiing in place as prescribed Yes N/A Experienced any changes in pain level or No No management Left Footwear Multipodus Regular Shoe Splint/Boot Right Footwear Regular Shoe Regular Shoe Pain Scale: 0-10 Numeric Is Patient Pain Free? Yes Yes LUIS F [place] Nurse 1 - General Ulcer Measurement Start: 04/20/21 15:10 Freq: Status: Active Protocol: Activity Type Activity Date Activity User E-Sign Co-Sign Detail Recorded Client Recorded Date Recorded By Document 04/20/21 15:10 [facility] [id number] 04/20/21 15:16 [facility] Document 04/27/21 14:28 KR [id number] 04/27/21 14:30 KR 04/20/21 04/27/21 15:10 14:28 Wound Center Nurse 1 #1 Left Heel -Combined with other wound No -Current Size (cm) - Length 1 0.1 -Current Size (cm) - Width 0.2 0.1 -Current Size (cm) - Depth 0.7 0.1 -Total Square Cm 0.2 0.01 -Photo Taken No -Epithelialization None Present -Tunneling No -Undermining/Tunneling No -Circular Undermining No -Exudate Amt Medium None Present -Exudate Type Purulent -Wound Margin Distinct, Distinct, Outline Outline Attached Attached -Granulation Amt Medium (34-66%) -Granulation Quality Red -Slough/Fibrin Yes -Necrosis Amt Small (1-33%) Small (1-33%) -Necrotic Tissue Type Adherent Slough Adherent Slough -Texture (Sandra-wound Skin Appearance) Assessed,Callus Assessed, ,Scarring Scarring -Moisture (Sandra-wound Skin Appearance) Assessed Assessed,Dry/ Scaly -Color (Sandra-wound Skin Appearance) Assessed No Abnormality, Assessed -Temperature (Sandra-wound Skin No Abnormality No Abnormality Appearance) (Pt Warm) (Pt Warm) -Tenderness on Palpation (Sandra-wound No No Skin Appearance) -Ulcer Cleansing soapy water soap and water -Foul Odor after Cleansing No No -Anesthetic Used 5% Lidocaine 4% Lidocaine Gel Solution WC - Nurse 2 - General Ulcer CM Notes Start: 04/20/21 15:10 Freq: Status: Active Protocol: Activity Type Activity Date Activity User E-Sign Co-Sign Detail Recorded Client Recorded Date Recorded By Document 04/20/21 15:23 [id number] 04/20/21 15:24 Document 04/27/21 14:46 [id number] 04/27/21 14:48 04/20/21 04/27/21 15:23 14:46 Wound Center Nurse 2 #1 Left Heel -Time 15:24 14:46 -Correct Patient Yes Yes -Correct Side, Site, Position Yes Yes -Correct Procedure Yes Yes -Procedure Performed Yes Yes -Type of Procedure Debridement Debridement -Clinical Debridement Subcutaneous Subcutaneous -Tissue Removed Subcutaneous Subcutaneous -Post Debridement (cm) - Length 0.5 0.5 -Post Debridement (cm) - Width 0.3 0.2 -Post Debridement (cm) - Depth 0.1 0.1 -Total Square (Post) (cm) 0.15 0.10 -Area of Debridement (cm) - Length 0.5 0.5 -Area of Debridement (cm) - Width 0.3 0.2 -Total Square (Area) (cm) 0.15 0.10 -Tunneling No -Undermining/Tunneling No No -Circular Undermining No No -Wound/Ulcer Outcome Not Healed Not Healed -Ulcer Cleansing Rinsed/ Rinsed/ Irrigated with Irrigated with Saline Saline -Foul Odor after Cleansing No No -Bioengineered Tissue No No -Bleeding Controlled with Pressure Pressure -Offloading No No -Treatment Response Procedure Procedure Tolerated Well Tolerated Well -Debridement - Subq, 1st 20sq cm Yes Yes Pain Scale: 0-10 Numeric Is Patient Pain Free? Yes Yes - Nurse 3 - General Ulcer D/C NN Start: 04/20/21 15:10 Freq: Status: Active Protocol: Activity Type Activity Date Activity User E-Sign Co-Sign Detail Recorded Client Recorded Date Recorded By Document 04/20/21 15:37 RB [id number] 04/20/21 15:37 RB Document 04/27/21 14:57 AK [id number] 04/27/21 14:58 AK 04/20/21 04/27/21 15:37 14:57 Wound Care Nurse 3 #1 Left Heel -Ulcer Cleansing Rinsed/ Rinsed/ Irrigated with Irrigated with Saline Saline -Foul Odor after Cleansing No -Negative Pressure Wound Therapy N/A -Primary Dressing Applied Aquacel AG 2x2 Aquacel AG 4x4 -Primary Dressing Covered/Secured with Dry Gauze,Dry Dry Gauze & Gauze & Roll Roll Gauze, Gauze,Secured Secured with with Tape Tape -Aquacel AG 4x4 1 -Aquacel AG 2x2 1 Treatment Response Procedure Tolerated Well Pain Scale: 0-10 Numeric Is Patient Pain Free? Yes WC - Visit Discharge Discharge Condition Stable Stable Ambulatory Status Ambulatory Transportation Private Auto Private Auto Medication Reconcilliation completed & No No provided to patient/care provider Clinical Summary of Care Provided Yes Yes Assessment/Plan Assessment/Plan (1) Diabetic ulcer of left foot: CODE(S): E11.621 - Type 2 diabetes mellitus with foot ulcer; L97.529 - Non-pressure chronic ulcer of other part of left foot with unspecified severity (2) Uncontrolled type 2 diabetes mellitus: CODE(S): E11.65 - Type 2 diabetes mellitus with hyperglycemia (3) HTN (hypertension): CODE(S): I10 - Essential (primary) hypertension (4) Cellulitis of left lower limb: CODE(S): L03.116 - Cellulitis of left lower limb (5) Puncture wound of left foot: CODE(S): S91.332A - Puncture wound without foreign body, left foot, initial encounter (6) Non-pressure chronic ulcer of other part of left foot with fat layer exposed: CODE(S): L97.522 - Non-pressure chronic ulcer of other part of left foot with fat layer exposed PLAN: I reviewed and discussed his case. Debridement performed today in clinic as noted above. Continue to change dressing daily with silver product and cover with gauze. At home wound-care instructions: Silver cell cover with [place] SAP foam dressing and continue with CAM Walker for offloading. Did also recommend a knee scooter for better offloading. Change dressing once daily or more frequently as needed due to contamination. Wash wounds daily with antibacterial soap and water, rinse and dry thoroughly before each dressing change. Compression: Tubigrip recommended to control edema. To elevate. Arterial work-up: He had noninvasive vascular studies which demonstrated normal perfusion. Diet: Patient encouraged to increase protein intake while taking caution to avoid high carbohydrate and/or sugar intake. I recommend Teja nutritional supplementation optimize healing. Labs/cultures/imaging: Cultures ordered previously and patient started on cipro based on sensitivity, second culture was reviewed and showed strep and Enterococcus. This was completed and he has no local signs of infection today. I do not recommend refill; to complete the initial course. Routine baseline lab work reviewed as noted above. Repeat lab work including CBC and CMP and foot x- rays were ordered recently. No additional progressive changes are noted on the plain x-rays. Labs are normal without leukocytosis. His images and reports were requested from the initial hospital that he had CT scan performed ([facility]) and these were reviewed personally without evidence of osseous destruction adjacent to the ulcer and suspected puncture wound site. No foreign body noted. His risk factors are noted and he is at risk for delayed healing or continued infection. We discussed it is imperative that he controls his glucose levels. I recommend continued time off work to allow appropriate healing. Follow-up: Return to clinic in 1 week for re-evaluation. Return sooner or report to the emergency room should symptoms worsen, or new symptoms arise. This note was generated with [employer] dictation software. It may contain incorrect words, spelling, and punctuation that were not noted in checking the note before signing.
[2021-05-11 14:34] VITALS: BP 134/78; PULSE 65; TEMP 36.3; BMI 40.0
--- NOTE | 2021-05-11 20:24 | PCM.WC.PN ---
History of Present Illness Date of Service: 05/11/21 Chief Complaint: Diabetic foot ulcer left heel History of Wound: A 50-year-old white male with a past medical history of diabetes and hypertension who presents to the wound healing center today with complaint of a diabetic foot ulcer to his left heel present for the last 2 months. He denies odor, redness, fever, chills, nausea, vomiting. He denies drainage and thinks the ulcer site has healed. Progress of Wound: healed Objective Data Objective Data Vital Signs: Vital Signs Temp Pulse Resp BP 97.3 F L 65 18 134/78 H 05/11/21 14:34 05/11/21 14:34 04/20/21 15:10 05/11/21 14:34 Oxygen Delivery Method Room Air Body Mass Index (BMI) 40.0 Physical Exam Extremity Extremity Narrative: No calf tenderness Diminished pulses Muscle wasting noted Skin Skin Narrative: ulcer site is fully epithelialized and this is healed. Adjacent skin is atrophic. Palpable DP pulse No bogginess or fluctuance on palpation Active range of motion of toes. Compartments remain soft to this limb Neuro Neuro Narrative: lack of normal epicritic sensation via light touch is consistent with neuropathy status Assessment/Plan Assessment/Plan (1) Diabetic ulcer of left foot: CODE(S): E11.621 - Type 2 diabetes mellitus with foot ulcer; L97.529 - Non-pressure chronic ulcer of other part of left foot with unspecified severity (2) Uncontrolled type 2 diabetes mellitus: CODE(S): E11.65 - Type 2 diabetes mellitus with hyperglycemia (3) HTN (hypertension): CODE(S): I10 - Essential (primary) hypertension (4) Cellulitis of left lower limb: CODE(S): L03.116 - Cellulitis of left lower limb (5) Puncture wound of left foot: CODE(S): S91.332A - Puncture wound without foreign body, left foot, initial encounter (6) Non-pressure chronic ulcer of other part of left foot with fat layer exposed: CODE(S): L97.522 - Non-pressure chronic ulcer of other part of left foot with fat layer exposed PLAN: I reviewed and discussed his case. The ulcer is healed. To d/c dressings. To offload for additional 1-2 weeks and then transition to supportive and protective shoe in a progressive manner. d/c from wound center. To follow up with pcp for improved diabetic management. To check feet daily. This note was generated with [employer] dictation software. It may contain incorrect words, spelling, and punctuation that were not noted in checking the note before signing. The medical decision making level is low. There is noted low risk of morbidity after considering this treatment plan and diagnostic data. The problems addressed require a low medical decision making level which includes two or more minor problems, a stable chronic illness, or an acute uncomplicated illness or injury.
== END 2021-05-11 15:02 | disposition home or self-care (01) ==
LOC: WC 14:30
PROVIDERS: PCP Student in an Organized Health Care Education/Training Program; Visit Provider Nurse Practitioner Family
DX: E11.621 Type 2 diabetes mellitus with foot ulcer (principal); L97.522 Non-pressure chronic ulcer of other part of left foot with fat layer exposed; E11.65 Type 2 diabetes mellitus with hyperglycemia; I10 Essential (primary) hypertension; L03.116 Cellulitis of left lower limb; S91.332A Puncture wound without foreign body, left foot, initial encounter
CPT/HCPCS: 11042; 99213; G0463

== ENCOUNTER 2023-08-20 14:16 | Inpatient (IN) | payer MEDICAID, SELFPAY ==
[2023-08-20] VITALS (7 sets, daily range): BP systolic 152–178; BP diastolic 69–112; PULSE 64–87; RESP 18; TEMP 36.4–37.1; O2SAT 93–100; BMI 40.7
--- NOTE | 2023-08-20 13:26 | VDLE_ITS ---
Reason For Study: HX DVT RIGHT LEFT GSV is normal. GSV is normal. CFV is compressible, spontaneous, phasic, CFV is compressible, spontaneous, phasic, competent and demonstrates normal competent, and demonstrates normal augmentation. augmentation. FV is compressible, spontaneous, phasic, FV is compressible, spontaneous, phasic, competent and demonstrates normal competent and demonstrates normal augmentation. augmentation. POP V is compressible, spontaneous, phasic, POP V is compressible, spontaneous, phasic, competent and demonstrates normal competent and demonstrates normal augmentation. augmentation. T/P Trunk is compressible. T/P Trunk is compressible. PTV is compressible. PTV is compressible. RT PerV is compressible. LT PerV is compressible. Procedure This is a venous duplex using B-mode, color flow and spectral Doppler. Exam performed portable in patient room. The study was technically difficult. Due to body habitus. A preliminary report was called and/or faxed to Joslyn RIDDLE RN. VL/Venous Duplex US - Cesar Extrem Interpretation Summary No evidence for acute deep venous thrombosis bilateral lower extremities with p atent and compressible bilateral great saphenous veins. This examination was noted to be technically difficult secondary to body habitus Ordering Physician: Veronica Walls Referring Physician: Lupillo Gaytan Performed By: Noemi Stiles RDCS, RVT
--- NOTE | 2023-08-20 14:06 | PCM.PN.HOSP ---
Subjective Subjective The patient is a 53 y/o M w/ PMHx: Morbid obesity, HTN, HLD, Unspecified cardiac arrhythmia, Hx VTE left lower extremity x 2 with most recent DVT diagnosed 02/14/[address] drives most recent reportedly 17 hours straight with no family history of clotting disorders treated with Eliquis, Diabetes mellitus type II, Hx Diabetic Foot wounds/ulcers, lumbar spinal stenosis with persistent lumbar back pain and immobility with several ED presentations through July and August at outside facility [facility] ED who presents to the [facility] on 08/20/22 as direct admission to Dr. Carpio secondary to worsening lumbar back pain with debility with planned operative intervention. Most recent vital signs at outside facility included 190/106 BP, 107 heart rate, afebrile, noted to be appropriate on room air. At outside facility ED patient was administered Lasix 40 mg IV x 1 secondary to lower extremity swelling with lymphedema history and Houston catheter placed. From review of records obtained from [facility] at [facility] there was noted 07/31/2023 CT lumbar without contrast secondary to back pain with multilevel degenerative changes with foraminal narrowing most marked on the left at the level of L4-5. Most recent labs obtained at [facility] 08/19/2023 including urinalysis with glucose 1000 otherwise unremarkable, CBC without differential with WBC 7.4, hemoglobin 14.7, platelet 239, BMP with sodium 137, potassium 3.6, chloride 99, CO2 25.1, glucose 272, BUN/creatinine 14/1.03, NT-proBNP 22, troponin 30.8. Most recent imaging noted in the clinic sink system included MRI lumbar spine without contrast with markedly limited evaluation, single phase sagittal images suggest severe narrowing of the spinal canal at L4-5 level, spinal canal narrowing demonstrated on prior CT. From review of records at [facility] last hemoglobin A1c noted 03/15/2022 8.8% with no visible PCP evaluation since. Patient currently upon initial evaluation fatigued but awakens and able to have conversation reporting that he did have pain medication with his recent transition via EMS. He currently reports his lumbar pain 0 out of 10. He does report sensation intact. He states that approximately for 1 week he had worsening lumbar pain, more severe with any activity attempts, 10 out of 10 in severity, sharp and dull aching with intermittent episodes of urinary as well as fecal incontinence. Patient does admit that he has been off of his medications for significant amount of time. Patient denies fevers, chills, nausea, emesis, abdominal pain, chest pain or dyspnea. Physical Exam Narrative Physical Examination: General: Awakens to stimuli, alert with discussions, oriented x 3 and cooperative, seated upright in MS bed in no apparent distress, denies currently any pain. Skin: Normal color, normal turgor, no icterus, no cyanosis except for bilateral pedal and anterior ferreira small abrasions but no infected wounds apparent. HEENT: AT/NC, EOMI, PERRLA, moderately dry MM, no carotid bruits or JVD noted: However thickened neck makes evaluation difficult. Lungs: Diminished, distant, greater bases, appropriate effort, no rales, ronchi or wheezing. Heart: Regular rate and rhythm; no gallop, rub audible. Abdomen: Soft, morbidly obese, NTTP, hypoactive BS, difficult to appreciate distention and HSM given habitus. Extremities: No cyanosis, no clubbing, mild distal ferreira-pedal not marked pitting edema, see skin. Neurological: Awakens to stimuli, alert with discussions, oriented x 3 and cooperative, seated upright in MS bed in no apparent distress, denies currently any pain, cognitive function once awakened with discussions appreas intact; pupils equally reactive to light and accommodation, cranial nerves grossly normal, moving all 4 extremities, denies any sensation decrease or alteration, no saddle paresthesias reported, strength severely globally decreased. Psychiatric: Affect appears fatigued otherwise normal, no acute evidence of depressive or anxiety feelings. Assessment & Plan Assessment/Plan (1) Lumbar stenosis: PLAN: Plan The patient is a 53 y/o M w/ PMHx: Morbid obesity, HTN, HLD, Unspecified cardiac arrhythmia, Hx VTE left lower extremity x 2 with most recent DVT diagnosed 02/14/22 [address] falling [address] drives most recent reportedly 17 hours straight with no family history of clotting disorders treated with Eliquis, Diabetes mellitus type II, Hx Diabetic Foot wounds/ulcers, lumbar spinal stenosis with persistent lumbar back pain and immobility with several ED presentations through July and August at outside facility [facility] who presents to the [facility] on 08/20/22 as direct admission to Dr. Carpio secondary to worsening lumbar back pain with debility with planned operative intervention. #1. Severe persistent lumbar back pain with severe spinal canal narrowing L4-5/spinal stenosis with intractable pain, debility c/w per Surgery with cauda equina syndrome: Admitted per Dr. Carpio as transfer from [facility] for planned lumbar intervention, will continue Houston catheter with Flomax twice daily regimen given issues with urinary retention as well as incontinence given his acute presentation, post-operative pain management, bowel regimen, DVT Prophylaxis, PT/OT/CM per Orthopedic surgery discretion. From records unfortunately patient has not filled medications nor seeing PCP in a timely fashion thus is a poorly controlled diabetic certainly higher risk, will attempt to maximize medical therapy, restart hypertensive medications, assess A1c and initiate on long-acting insulin pending blood sugar trending if necessary. As noted given significant immobility DVT history recommend strongly once surgery is amenable to start chemical therapy. #2. History DVT: Patient with significant left lower extremity DVT history with most recent 02/14/2022 both following very prolonged car drives with the last noted 17 hours straight of driving with no family history of clotting disorders treated with Eliquis, given current presentation patient is certainly high risk and recommend immediately once surgery is amenable that patient be started on DVT prophylaxis. As noted given recent increase in mobility and lower extremity swelling duplex ultrasound has been requested. #3. Diabetes mellitus type II, poorly controlled with history of diabetic ulcers, currently small abrasions to bilateral feet: Hold oral home regimen, last hemoglobin A1c noted 8.8% 03/15/2022 thus will repeat, will maintain on ADA diet until n.p.o. status, accu checks w/ ISS. Given history of poorly controlled diabetes may need component of longer acting insulin twice daily pending blood sugar trending. Will continue routine skin care with no current infected ulcers apparent but he does have small abrasions to his feet including to the right medial first toe. If needed may consider consultation with wound RN but at this time does not look infected. #4. Hypertension: Continue home regimen including lisinopril, PRN hydralazine. #5. Hyperlipidemia: Not on regimen, noted history and prior records on [facility], encourage primary care early follow-up and reassessment. #6. Morbid Obesity: Weight loss and lifestyle changes encouraged, nutrition consulted. #7. Unspecified cardiac arrhythmia: [facility] sink [facility], unclear specific type. #8. Chronic bilateral lower extremity lymphedema: Will place neck Flaco wraps with elevation, duplex ultrasound requested given significant history of DVTs with immobility and recent increased pain and decreased movement especially going into operative intervention as noted, patient dosed with Lasix at outside facility. #9. DVT prophylaxis: SCDs, strongly encourage initiation early of DVT prophylaxis chemically given history of DVT with prolonged immobility. Charges/Coding Visit Charges Inpatient E&M: 44252 Subs Hosp L3
--- NOTE | 2023-08-20 14:20 | EKG12_ITS ---
Test Reason : PRE-OP Blood Pressure : / mmHG Vent. Rate : 084 BPM Atrial Rate : 084 BPM P-R Int : 210 ms QRS Dur : 140 ms QT Int : 390 ms P-R-T Axes : 044 -49 036 degrees QTc Int : 460 ms Sinus rhythm with 1st degree A-V block with occasional Premature ventricular complexes Left axis deviation Left ventricular hypertrophy with QRS widening ( R in aVL , Jason product ) Abnormal ECG When compared with ECG of 17-FEB-2021 12:49, Premature ventricular complexes are now Present Vent. rate has increased BY 32 BPM Confirmed by ALDAIR MARTINEZ, CASANDRA ([id number]), features editor JOSÉ PUENTES ([id number]) on 08/22/2023 5:58:24 AM Referred By: GAYLE Confirmed By:CASANDRA QUINTEROS MD
--- OUTSIDE RECORDS SUMMARY | 2023-08-20 15:51 | XMS RPT_ITS | CCD ---
Author Name Unknown Address [address] [place] [address] Organization [facility] Care Team Providers Care Radio News Anchor Name Role Phone JOHNNIE, JOJO W Admitting Unavailable JOHNNIE, JOJO W Attending Unavailable ITRAT, AHMED Consulting Unavailable JUSTYNA HARRISON Consulting Unavailable PENNY RANGEL Attending Unavailable IMCA Referring Unavailable GEPENNY YODER Attending Unavailable IMCA Referring Unavailable PENNY RANGEL Referring Unavailable JOHNNIE, JOJO W Admitting Unavailable JOHNNIE, JOJO W Attending Unavailable JUSTYNA SILVERMAN Consulting UnavailPENNY Walsh JR Attending Unavaila ble PENNY RANGEL JR Referring Unavaila ble PAYAM SALINAS FLOOR CARE TECHNICIAN%C Consulting Unavailable RITA, PAYAM FLOOR CARE TECHNICIAN%C Referring Unavailable CODY HUFFMAN Admitting Unavailable CODY HUFFMAN Primary Care Unavailable CODY HUFFMAN Attending Unavailable PROVIDER, UNKNOWN Consulting Unavailable PAYAM SALINAS FLOOR CARE TECHNICIAN%C Consulting Unavailable RITA PAYAM FLOOR CARE TECHNICIAN%C Referring Unavailable PATRICIA KWOK DO Admitting Unavailable PATRICIA KWOK DO Primary Care Unavailable PATRICIA KWOK DO Attending Unavailable PROVIDER, UNKNOWN Consulting Unavailable GINI STORY MD Admitting Unavailable GINI STORY MD Primary Care Unavailable GINI STORY MD Attending Unavailable ADOLPH LEDESMA Consulting Unavailable PROVIDER, UNKNOWN Consulting Unavailable PROVIDER, UNKNOWN Consulting Unavailable PROVIDER, UNKNOWN Consulting Unavailable PAYAM SALINAS FLOOR CARE TECHNICIAN%C Referring Unavailable NANO CHENG MD Admitting Unavailable NANO CHENG MD Primary Care Unavailable NANO CHENG MD Attending Unavailable PAYAM SALINAS FLOOR CARE TECHNICIAN%C Consulting Unavailable PROVIDER, UNKNOWN Consulting Unavailable Problems Active Problems Problem Classification Problem Date Documented Da te Episodic/Chronic Acute cerebrovascular disease (3 sources) Cerebral infarction, unspecified; Translations: [Cerebral infarction, unspecified] Onset: 09-09-2018 Chronic Diabetes mellitus with complications (1 source) Type 2 diabetes mellitus with other specified complication; Translations: [Type 2 diabetes mellitus with other specified complication] Onset: 08-19-2023 Chronic Diabetes mellitus without complication (1 source) Type 2 diabetes mellitus without complications; Translations: [Type 2 diabetes mellitus without complications] Onset: 07-31-2023 Chronic Disorders of lipid metabolism (1 source) Hyperlipidemia, unspecified; Translations: [Hyperlipidemia, unspecified] Onset: 08-19-2023 Chronic Other aftercare (1 source) half-way (current) use of anticoagulants; Translations: [half-way (current) use of anticoagulants] Onset: 09-16-2018 Episodic Other aftercare (1 source) salvage determiner (current) use of oral hypoglycemic drugs; Translations: [half-way (current) use of oral hypoglycemic drugs] Onset: 07-31-2023 Episodic Spondylosis; intervertebral disc disorders; other back problems (2 sources) Cervical disc disorder with radiculopathy, unspecified cervical region; Translations: [Spondylosis without myelopathy or radiculopathy, lumbar region] Onset: 09-16-2018 Chronic Spondylosis; intervertebral disc disorders; other back problems (2 sources) Spinal stenosis, cervical region; Translations: [Spinal stenosis, lumbar region without neurogenic claudication] Onset: 09-16-2018 Episodic Transient cerebral ischemia (1 source) Transient cerebral ischemic attack, unspecified; Translations: [Transient cerebral ischemic attack, unspecified] Onset: 09-16-2018 Chronic Unclassified (1 source) Low back pain, unspecified; Translations: [Low back pain, unspecified] Onset: 07-31-2023 Past or Other Problems Problem Classification Problem Date Documented Da te Episodic/Chronic Unclassified (1 source) Low back pain, unspecified; Translations: [Low back pain, unspecified] Onset: 07-31-2023 Results Test Name Value Interpretation Reference Range Facil ity Encounters Encounter Date Encounter Type Care Provider Facility Start: 08-19-2023 ambulatory GINI STORY [facility] Start: 08-19-2023 Emergency department patient visit PAYAM FLOOR CARE TECHNICIAN%C [facility] Start: 07-31-2023 End: 07-31-2023 Emergency department patient visit PAYAM FLOOR CARE TECHNICIAN%C [facility] Start: 06-10-2023 End: 06-10-2023 Emergency department patient visit PAYAM FLOOR CARE TECHNICIAN%C RITA [facility] Start: 09-16-2018 End: 09-17-2018 Patient encounter procedure PENNY RANGEL Facility:[facility] Start: 09-16-2018 End: 09-16-2018 Patient encounter procedure PENNY RANGEL Facility:[facility] Start: 09-09-2018 End: 09-12-2018 Evaluation and management of inpatient JOJO BLAIR Facility:[facility] Start: 09-09-2018 End: 09-09-2018 Emergency department patient visit JOJO BLAIR Facility:[facility] Payers Date Payer Category Payer Unknown [id number] [id number] [id number] 1970 Unknown [id number] [id number] 1970 Unknown [id number] [id number] 1971 Unknown [id number] [id number] [id number] 1971 Unknown [id number] 2.16.8 [id number] Medicaid [id number] Clinical Note 10-21-2020 Note Date & Type Note Facility 10-21-2020 Note Patient Outreach ([place] [facility]) KAYLEEN RESTREPO ([id number]) 1970 Date Time Provider Department 10/21/20 TONIA MONTGOMERY During your visit today, we recorded the following information about you: Allergies As of Date: 10/21/2020 (No Known Allergies) Date Reviewed: 09/16/2018 Reviewed by: Keya Guerrero) Holly - Fully Assessed Order(s):SARS-COVID VACCINE 1ST DOSE APPT [[id number]] Order #: [id number] FUTURE Problem List As Of Date 10/21/2020 Noted Resolved TIA (transient ischemic attack) [G45.9] 09/09/2018 09/12/2018 More... Hyperlipidemia [E78.5] 09/09/2018 More... Diabetes mellitus type 2, controlled, without c*09/09/2018 More... Hypertension [I10] 09/09/2018 More... History of DVT (deep vein thrombosis) [Z86.718] 09/09/2018 More... Obesity, Class III, BMI >= 40 [E66.01] 09/12/2018 Stroke (HCC) [I63.9] 09/12/2018 Letter Text Encounter Status:Closed by Helium, PRODUSER on 10/25/20 [facility] Summary Purpose Family History No Family History Records FoundNo Family History Records FoundNo Family History Records FoundNo Family History Records Found Advance Directives No Advanced Directives Records FoundNo Advanced Directives Records FoundNo Advanced Directives Records FoundNo Advanced Directives Records Found Additional Source Comments (unrecognized sect ion and content) No Status Records FoundNo Status Records FoundNo Status Records FoundNo Status Records Found INFORMATION SOURCE (unrecogn ized section and content) DATE CREATED AUTHOR AUTHOR'S ORGANIZ ATION 10/08/2018 [facility] DATE CREATED AUTHOR AUTHOR'S ORGANIZ ATION 09/20/2021 [facility] DATE CREATED AUTHOR AUTHOR'S ORGANIZ ATION 08/20/2023 [facility] FOR RECORDS PERTAINING TO PATIENTS WHO ARE OR HAVE BEEN ENROLLED IN A CHEMICAL DEPENDENCY/SUBSTANCEABUSE PROGRAM, SOME INFORMATION MAY BE OMITTED. This clinical summary was aggregated from multiple sources. Caution should be exercised in using it in the provision of clinical care. This summary normalizes information from multiple sources, and as a consequence, information in this document may materially change the coding, format and clinical context of patient data. In addition, data may be omitted in some cases. CLINICAL DECISIONS SHOULD BE BASED ON THE PRIMARY CLINICAL RECORDS. [facility] [employer] [facility]. provides no warranty or guarantee of the accuracy or completeness of information in this document.
[2023-08-20 15:58] LABS: International Normalized Ratio 1.1
[2023-08-20 16:07] LABS: Hemoglobin A1c 10.5 % (3.8-5.6)
[2023-08-20] MEDS: 0.9% Normal Saline (1000mL) 1,000 ML 75 ML IV (16:10)
[2023-08-20 16:11] LABS: Anion Gap 5 (5-15); BUN 16 mg/dL (7-18); BUN/Creat Ratio 16.1 RATIO (10-20); Calcium,Total 9.1 mg/dL (8.5-10.1); Chloride 103 mmol/L (98-107); EST Glomerular Filtration Rate 84 mL/min (>60); Est Glom Filt Rate - Afr Amer 101 mL/min (>60); Estimated Creatinine Clearance 106.09 ml/min; Glucose 192 mg/dL (74-106); Potassium 3.7 mmol/L (3.5-5.1); Sodium Level 136 mmol/L (136-145)
[2023-08-20] MEDS: Lisinopril 10 MG Tablet PO (16:12)
--- NOTE | 2023-08-20 16:17 | HP.PCM_ITS ---
HPI - General General Date of Admission: 08/20/23 Date of Service: 08/20/23 Chief Complaint: Acute low back pain with weakness in the bilateral lower extremities HPI Narrative The patient is a 53-year-old male with complaints of acute severe back pain with weakness in the lower extremities for the past few weeks that has progressively worsened over the past few days according to the patient. He describes vague diffuse pain in the lumbosacral region radiating to the bilateral gluteal regions. He also describes subjective weakness in the lower extremities affecting his ability to ambulate and has resulted in multiple falls over the past few days. He presented to the ER at [facility] where he was seen and evaluated. He was found to have urinary retention and a [place] catheter was placed. A lumbar MRI was attempted but only a partial scan was obtained secondary to patient's inability to tolerate the study. MRI showed severe c entral canal stenosis at L4-5. He was subsequently transferred to [facility] for further evaluation and management. The patient is currently lying in bed resting comfortably. His pain is minimal at this time. The patient has described episodes of decreased sensation in the groin genital and rectal areas over the past few days but not at this time. Other than a complaint of weakness in the legs he denies any other acute numbness tingling weakness. He denies any history of back surgeries or back injections. [facility] Medical History (Updated 08/20/23 @ 16:[address] Javier Carpio, ) Arrhythmia Diabetic ulcer of left foot History of deep venous thrombosis (DVT) of distal vein of left lower extremity HLD (hyperlipidemia) HTN (hypertension) Lymphedema Uncontrolled type 2 diabetes mellitus Home Medications lisinopril 10 mg tablet 10 mg PO QDAY #90 tabs 05/24/21 [Rx Last Taken Unknown] apixaban 5 mg tablet (Eliquis) 5 mg PO BID 03/15/22 [History Last Taken Unknown] metformin 500 mg tablet,extended release 24hr (osmotic) 1,000 mg (2 x 500 mg) PO BID #360 tabs 03/15/22 [Rx Last Taken Unknown] carboxymethylcellulose-citric acid 0.75 gram capsule (Plenity) 3 cap PO BID #540 caps 06/23/22 [Rx Last Taken Unknown] Allergy/AdvReac Type Severity Reaction Status Date / Time No Known Allergies Allergy Unverified 03/15/22 13:43 Family History Father Myocardial infarction Brother Diabetes Surgical History H/O elbow surgery Social History (Updated 08/20/23 @ 13:[address] Veronica Walls MD) household members: spouse Smoking Status: Never smoker alcohol intake: never substance use type: does not use Vital Signs Vital Signs Vital Signs: 08/20/23 14:39 08/20/23 15:00 08/20/23 14:45 Temperature 98.7 F Temperature Source Oral Pulse Rate 83 84 Respiratory Rate 18 18 Blood Pressure 178/112 H Blood Pressure Mean 134 Blood Pressure Source Monitor Blood Pressure Position Supine Blood Pressure Location Right Arm Pulse Ox 93 93 Oxygen Delivery Method Room Air Room Air Room Air Weight Weight: 334 lb 14.4 oz Body Mass Index (BMI) 40.7 Physical Exam Const alert, oriented x3 and no apparent distress General Appearance: cooperative, comfortable and well kempt HEENT normocephalic and head/scalp atraumatic Eyes EOMs intact bilaterally and conjunctivae normal Neck full ROM Chest inspection of chest normal and palpation of chest normal Resp normal respiratory effort and normal air movement Effort and Inspection: able to speak in complete sentences Cardio regular rate, regular rhythm and peripheral pulses 2+ throughout GI soft to palpation, non-tender and non-distended Back/Spine no thoracic nor lumbar tenderness Cervical Spine: cervical ROM normal Thoracic Spine / Upper Back: normal to inspection Lumbar Spine / Lower Back: normal to inspection Extremity normal to inspection, full ROM, normal capillary refill and no calf tenderness Extremity Narrative: Patient does have mild pitting edema of the bilateral feet and ankles Skin no rashes or lesions noted Skin Narrative: Patient does have multiple healing abrasions on the lower extremities as well as 1 superficial lesion on the medial aspect of the right great toe measuring about 5 mm in diameter General Skin Exam: no breakdown Neuro oriented x3, CN's II-XII intact bilaterally, moves all extremities, no focal motor deficits, no sensory deficits noted and deep tendon reflexes 2+ b ilaterally Neuro Narrative: Examination of the lower extremities shows strength to be 4+ out of 5 in bilateral hip flexion and knee extension. 3 out of 5 in bilateral ankle dorsiflexion and EHL function. 4 out of 5 in bilateral ankle plantarflexion Motor Exam: muscle tone normal throughout Results Lab / Micro Data 08/20/23 15:22 Labs: Laboratory Results - last 24 hr 08/20/23 15:22: PT 14.0, INR 1.1, APTT 25.0, Sodium 136, Potassium 3.7, Chloride 103, Carbon Dioxide 28.0, Anion Gap 5, BUN 16, Creatinine 1.00, Estim Creat Clear Calc 106.09, Est GFR (MDRD) Af Amer 101, Est GFR (MDRD) Non-Af 84, BUN/Creatinine Ratio 16.1, Glucose 192 H, Hemoglobin A1c 10.5 H, Calcium 9.1, Magnesium 2.0 Assessment & Plan Assessment/Plan (1) Lumbar stenosis: (2) Cauda equina syndrome: PLAN: I had a lengthy discussion with the patient. I reviewed his imaging with him. Lumbar MRI from outside facility dated 08/20/2023 which was an incomplete scan showing only 1 sagittal series shows severe central stenosis at L4-5. Given his complaints of back pain with subjective weakness in the legs, urinary retention, and episodic paresthesias in the saddle region I recommend surgical treatment. After discussing the risk benefits and alternatives and answering all of his questions I recommend an L4 laminectomy decompression. We discussed the procedure in detail along with expected outcome and recovery and he agrees to proceed. Surgery is planned for tomorrow. I did explain to the patient that given his current difficulty with mobilization he will likely need placed for inpatient rehab postop. The patient understands and agrees with the treatment plan
[2023-08-20] MEDS: hydrALAZINE 20 MG/ML Vial 10 MG IV (16:31)
[2023-08-20] MEDS: Insulin Lispro 100 UNIT/ML INSULN.PEN SC ×2 (16:34→20:53)
[2023-08-20 16:37] LABS: Bedside Glucose 231 mg/dL (74-106)
[2023-08-20 18:34] LABS: Mucous, Urine 0 SEEN /hpf (<or=2+); Red Blood Cells-Urine 0 SEEN /hpf (0-5); Squamous Epithelial Cells - UA 0 SEEN /hpf (0-5)
[2023-08-20 18:39] LABS: Color, Urine Yellow (Yellow); Glucose, Dipstick 1000 mg/dl (Normal); Ketone-Dipstick 15 mg/dl (Negative); Leukocyte Esterase-Dipstick 100 /ul (Negative); Nitrite-Dipstick Negative (Negative); Occult Blood-Urine 250 /ul (Negative); Protein-Dipstick 30 mg/dl (Negative); Specific Gravity, Urine 1.025 (1.002-1.030); Urine Bilirubin Dipstick Negative (Negative); Urine Clarity Sl. Cloudy (Clear); Urine Urobilinogen 4 mg/dl (Normal)
[2023-08-20 18:51] LABS: Amorphous Sediment 2+; Bacteria 1+ /hpf (None Seen); White Blood Cells 5-10 SEEN /hpf (0-5)
--- NOTE | 2023-08-20 19:20 | RAD_ITS ---
STUDY: X-RAY CHEST REASON FOR EXAM: Male, 53 years old. pre-op TECHNIQUE: Single AP portable view of the chest. COMPARISON: None. FINDINGS: 08/19/2023. The lungs are clear and expanded. There is no demonstrated pleural abnormality. Normal size heart. Normal mediastinum and chiara. Normal visualized pulmonary arteries. Normal visualized aortic arch and descending thoracic aorta. There are degenerative changes of the visualized thoracic spine. Normal visualized ribs, clavicles, and shoulders. There is no demonstrated abnormality of the visualized soft tissue structures of the upper abdomen. RAD/Chest 1 View (Portable) IMPRESSION: No acute cardiopulmonary disease. Electronically Signed: Arelis Maxwell MD at 19:37 EST ,
[2023-08-20] MEDS: HYDROcodone Bitartrate/Apap 5/325 Tablet PO (20:47)
[2023-08-20] MEDS: Tamsulosin HCl 0.4 MG Capsule 0.400000000000000022 MG PO (20:47)
[2023-08-20] MEDS: Insulin Glargine-YFGN 100 UNIT/ML Pen 10 UNIT SC (20:56)
[2023-08-20 21:12] LABS: Bedside Glucose 156 mg/dL (74-106)
[2023-08-21] VITALS (12 sets, daily range): BP systolic 119–159; BP diastolic 48–90; PULSE 64–86; RESP 14–20; TEMP 36.3–37.2; O2SAT 90–99; BMI 40.5; BMI 40.7
[2023-08-21] MEDS: HYDROcodone Bitartrate/Apap 5/325 Tablet PO ×3 (04:08→22:51)
[2023-08-21 04:29] LABS: Bedside Glucose 189 mg/dL (74-106)
[2023-08-21 06:11] LABS: Absolute Lymphocyte Count 2.11 X10^3/uL (0.83-4.51); Absolute Neutrophil Count 4.6 X10^3/uL (2.0-7.7); Basophil# 0.03 X10^3/uL; Basophil% 0.4 % (0-1); Eosinophil# 0.18 X10^3/uL; Eosinophils% 2.4 % (0-5); Hematocrit 40.1 % (40-54); Hemoglobin 13.2 g/dL (13.0-16.5); Lymphocyte # 2.11 X10^3/ul (0.83-4.51); Mean Corp Hgb Conc 32.9 g/dL (32-36); Mean Corpuscular Hgb 30.1 pg (27.0-32.0); Mean Corpuscular Volume 91.3 fL (80-94); Mean Platelet Vol. 10.4 fl (6.2-12.0); Monocyte# 0.64 X10^3/uL; Monocyte% 8.5 % (0-10); NRBC Flagged by Analyzer 0 % (0-5); Neutrophil # 4.55 X10^3/uL (2.7-7.7); Neutrophil % 60.4 % (47-70); Platelet Count 216 K/mm3 (150-450); RBC Distribution Width CV 12.6 % (11.6-14.6); RBC Distribution Width SD 41.8 fl (35.1-43.9); Red Blood Count 4.39 M/mm3 (4.6-6.2); White Blood Count 7.5 K/mm3 (4.4-11.0)
[2023-08-21 06:48] LABS: AST(SGOT) 38 U/L (15-37); Alanine Aminotransfer ALT/SGPT 96 U/L (16-61); Albumin, Serum 3.1 g/dL (3.2-5.0); Alkaline Phosphatase 58 U/L (45-117); Anion Gap 7 (5-15); BUN 18 mg/dL (7-18); BUN/Creat Ratio 18.4 RATIO (10-20); Chloride 104 mmol/L (98-107); Creatinine, Serum 0.98 mg/dL (0.70-1.30); EST Glomerular Filtration Rate 86 mL/min (>60); Est Glom Filt Rate - Afr Amer 104 mL/min (>60); Estimated Creatinine Clearance 108.25 ml/min; Globulin 3.2 g/dL (2.2-4.2); Glucose 199 mg/dL (74-106); Potassium 3.7 mmol/L (3.5-5.1); Protein, Total 6.3 g/dL (6.4-8.2); Sodium Level 137 mmol/L (136-145)
--- NOTE | 2023-08-21 08:02 | PN.HOSP_ITS ---
Reason for Visit Reason for Visit: Diagnoses Cauda equina syndrome (08/20/23) Spinal stenosis, lumbar region without neurogenic claudication (08/20/23) Subjective Subjective Patient is a 53-year-old gentleman with past medical history single for obesity with BMI of 40 presented with acute low back pain with weakness in both lower extremities. MRI obtained at an outside hospital demonstrated severe central canal stenosis at L4-L5. Patient admitted to the services of orthopedic surgery?Dr. Carpio with plans for patient to undergo surgical intervention with decompressive laminectomy at L4/L5 Objective Data Objective Data Vital Signs: Vital Signs Temp Pulse Resp BP Pulse Ox O2 Del Method 97.9 F 68 18 123/81 H 95 Room Air 08/21/23 04:01 08/21/23 04:01 08/21/23 04:01 08/21/23 04:01 08/21/23 04:01 08/21/23 04:01 Oxygen Delivery Method Room Air Weight: 151.8 kg Body Mass Index (BMI) 40.7 Intake & Output: Intake and Output for Last 24 Hours 08/19/23 08/20/23 08/21/23 23:59 23:59 23:59 Intake Total 400 / 900 500 / 500 Output Total 850 / 850 700 / 700 Balance -450 / 50 -200 / -200 Lab / Micro Data 08/21/23 05:50 08/21/23 05:50 Labs: Laboratory Results - last 24 hr 08/20/23 15:22: PT 14.0, INR 1.1, APTT 25.0, Sodium 136, Potassium 3.7, Chloride 103, Carbon Dioxide 28.0, Anion Gap 5, BUN 16, Creatinine 1.00, Estim Creat Clear Calc 106.09, Est GFR (MDRD) Af Amer 101, Est GFR (MDRD) Non-Af 84, BUN/Creatinine Ratio 16.1, Glucose 192 H, Hemoglobin A1c 10.5 H, Calcium 9.1, Magnesium 2.0 08/20/23 16:18: POC Glucose 231 H 08/20/23 18:20: Urine Color Yellow, Urine Clarity Sl. Cloudy, Urine pH 6.0, Ur Specific [place] 1.025, Urine Protein 30 H, Urine Glucose (UA) 1000 H, Urine Ketones 15 H, Urine Occult Blood 250 H, Urine Nitrite Negative, Urine Bilirubin Negative, Urine Urobilinogen 4 H, Ur Leukocyte Esterase 100 H, Urine RBC 0 SEEN, Urine WBC 5-10 SEEN, Ur Squamous Epith Cells 0 SEEN, Amorphous Sediment 2+, Urine Bacteria 1+, Urine Mucus 0 SEEN 08/20/23 20:52: POC Glucose 156 H 08/21/23 04:10: POC Glucose 189 H 08/21/23 05:50: WBC 7.5, RBC 4.39 L, Hgb 13.2, Hct 40.1, MCV 91.3, MCH 30.1, MCHC 32.9, RDW Std Deviation 41.8, RDW Coeff of Marito 12.6, Plt Count 216, MPV 10.4, Immature Gran % (Auto) 0.300, Neut % (Auto) 60.4, Lymph % (Auto) 28.0, [place] % (Auto) 8.5, Eos % (Auto) 2.4, Baso % (Auto) 0.4, Absolute Neuts (auto) 4.6, Absolute Lymphs (auto) 2.11, Nucleated RBC % 0, Sodium 137, Potassium 3.7, Chloride 104, Carbon Dioxide 26.0, Anion Gap 7, BUN 18, Creatinine 0.98, Estim Creat Clear Calc 108.25, Est GFR (MDRD) Af Amer 104, Est GFR (MDRD) Non-Af 86, BUN/Creatinine Ratio 18.4, Glucose 199 H, Calcium 8.0 L, Total Bilirubin 0.80, AST 38 H, ALT 96 H, Alkaline Phosphatase 58, Total Protein 6.3 L, Albumin 3.1 L, Globulin 3.2, Albumin/Globulin Ratio 1.0 Radiography Diagnostic Testing: Radiology Impression Venous Doppler Study 08/20/23 13:26 Interpretation Summary No evidence for acute deep venous thrombosis bilateral lower extremities with patent and compressible bilateral great saphenous veins. This examination was noted to be technically difficult secondary to body habitus Ordering Physician: Veronica Walls Referring Physician: Lupillo Gaytan Performed By: Noemi Stiles, RDCS, RVT Chest X-Ray 08/20/23 19:20 IMPRESSION: No acute cardiopulmonary disease. Electronically Signed: Arelis Maxwell MD at 19:37 EST Reading Location ID and State: [address] [place] [address] , Service support , Physical Exam Narrative GENERAL: cooperative HEENT: Atraumatic; normocephalic EYES; Anicteric, Normal Conjunctiva NECK; supple, normal thyroid, RESPIRATORY: Diminished to auscultation CARDIOVASCULAR: Regular S1 S2, GI: soft, normoactive bowel sounds, : No Renal angle tenderness; EXTREMITIES: Bilateral stasis dermatitis MUSCULOSKELETAL: no muscle wasting NEURO: Awake; no lateralizing signs. SKIN: No Rash PSYCH; Flat affect Assessment & Plan Assessment/Plan (1) Lumbar stenosis: PLAN: Plan Patient is a 53-year-old gentleman with past medical history single for obesity with BMI of 40 presented with acute low back pain with weakness in both lower extremities. MRI obtained at an outside hospital demonstrated severe central canal stenosis at L4-L5. Patient admitted to the services of orthopedic surgery?Dr. Carpio with plans for patient to undergo surgical intervention 1. Severe central canal stenosis at L4-L5 ? With signs and symptoms of cauda equinus syndrome. Patient has been admitted to the services of Dr. Sutton. Plans for patient to undergo decompression laminectomy 2. History of DVT ? Involving the left lower extremity on 02/14/2022 following prolonged period of immobilization with 70 hours of driving 3. Class III obesity with BMI of 40.7 ? Complicating care weight loss advised 4. Diabetes mellitus type II -patient's oral hypoglycemics held. Placed on long acting insulin, Accu-Cheks a.c. and at bedtime and covered with sliding scale insulin 5. Hypertension - Blood pressure controlled, home medications continued with dose adjustment as needed 6. Dyslipidemia ? Per history currently not on any statin therapy 7. Chronic bilateral lower extremity deep edema ? Consult placed to wound care nurse 8. DVT prophylaxis ? SCDs for now with plans to initiate chemoprophylaxis following patient surgic al intervention. Decision to start chemoprophylaxis will be deferred to patient orthopedic surgery Time spent in the patient's overall evaluation,decision-making process, review of diagnostic data, adjustment of management, discussion with other providers, nursing nursing and ancillary staff involved in patient's care documentation, 50 Minutes Charges/Coding Visit Charges Inpatient E&M: 73517 Subs Hosp L3
[2023-08-21] MEDS: Tamsulosin HCl 0.4 MG Capsule 0.400000000000000022 MG PO ×2 (08:57→21:06)
[2023-08-21] MEDS: Lisinopril 10 MG Tablet PO (08:57)
[2023-08-21] MEDS: Insulin Glargine-YFGN 100 UNIT/ML Pen 10 UNIT SC ×2 (09:03→21:05)
[2023-08-21 10:22] LABS: Hemoglobin A1c 10.6 % (3.8-5.6)
[2023-08-21] MEDS: Lactated Ringers 1,000 ML 15 ML IV (11:35)
--- NOTE | 2023-08-21 11:43 | PCM.OPRPT ---
Problems Associated Problem List Diagnoses (1) Cauda equina syndrome: (2) Lumbar stenosis: Report of Operation Date of Procedure: 08/21/23 Description of Surgical Findings:: Preop diagnosis: 1. Lumbar stenosis, L4-5 with spondylosis 2. Lumbar degenerative disc disease L4-5 3. Cauda equina syndrome Postop diagnosis: 1. Lumbar stenosis, L4-5 with spondylosis 2. Lumbar degenerative disc disease L4-5 3. Cauda equina syndrome Procedures performed: 1. L4 laminectomy decompression 2. Bilateral L4-5 foraminotomies Statement of medical necessity: The patient is a 53-year-old male with intractable back and leg pain and weakness and urinary retention. Image studies confirm the above diagnoses. They have opted for operative intervention understanding the risk to include but not limited to infection, bleeding, damage to nerves arteries and veins, possibility of spinal fluid leak, continued pain, need for further surgery, deep vein thrombosis, pulmonary embolism, heart attack, risk of stroke or . Description of the procedure: The patient was identified in the preoperative holding area. There they received preoperative IV antibiotics and was then transferred to the operative suite. Once in the operative suite after general endotracheal anesthesia was established, the patient was positioned prone on the Sanjiv operating table. All bony prominences were padded accordingly. The lumbar spine was prepped and draped in a standard fashion. Bear hugger's were not turned on until the drapes were placed and sealed with Ioban. A midline incision was made and taken down to the fascia. The fascia was divided and subperiosteal dissection was taken down to the level of the L4-5 facet joints bilaterally. Deep retractors were placed. A bone scalpel was used to make cuts in the lamina and then a series of rongeurs and Kerrisons were used removing the spinous process and lamina of L4. Then bilateral foraminotomies were performed at L4-5 decompressing the bilateral nerve roots. The incision was thoroughly irrigated. Tisseel was placed over the dura as a hemostatic agent. The fascia was closed with #1 Vicryl, subcutaneous with 2-0 Vicryl and skin with 2-0 nylon. A sterile dressing was applied with 4 x 4's ABD and tape. Sponge instrument and needle counts were correct at the end of the case. The patient was extubated and taken to the PACU without incident Surgeon: Javier Carpio Type of Anesthesia: General Estimated Blood Loss (mL): 50 cc Fluids Replaced: 1500 cc Complications None Admit VTE Documentation VTE Present on Admission: No
--- NOTE | 2023-08-21 11:48 | PCM.PN.ORT ---
Subjective Subjective Seen and examined postop. Resting comfortably. Pain controlled. No complaints Objective Data Objective Data Vital Signs: Vital Signs Temp Pulse Resp BP Pulse Ox O2 Del Method 98.0 F 65 18 159/78 H 99 Room Air 08/21/23 11:08 08/21/23 11:08 08/21/23 11:08 08/21/23 11:08 08/21/23 11:08 08/21/23 11:08 Oxygen Delivery Method Room Air Weight: 334 lb 10.587 oz Body Mass Index (BMI) 40.7 Intake & Output: Intake and Output for Last 24 Hours 08/19/23 08/20/23 08/21/23 23:59 23:59 23:59 Intake Total 400 / 900 1500 / 1500 Output Total 850 / 850 700 / 700 Balance -450 / 50 800 / 800 Lab / Micro Data 08/22/23 06:45 08/22/23 06:45 Labs: Laboratory Results - last 24 hr 08/20/23 15:22: PT 14.0, INR 1.1, APTT 25.0, Sodium 136, Potassium 3.7, Chloride 103, Carbon Dioxide 28.0, Anion Gap 5, BUN 16, Creatinine 1.00, Estim Creat Clear Calc 106.09, Est GFR (MDRD) Af Amer 101, Est GFR (MDRD) Non-Af 84, BUN/Creatinine Ratio 16.1, Glucose 192 H, Hemoglobin A1c 10.5 H, Calcium 9.1, Magnesium 2.0 08/20/23 16:18: POC Glucose 231 H 08/20/23 18:20: Urine Color Yellow, Urine Clarity Sl. Cloudy, Urine pH 6.0, Ur Specific [place] 1.025, Urine Protein 30 H, Urine Glucose (UA) 1000 H, Urine Ketones 15 H, Urine Occult Blood 250 H, Urine Nitrite Negative, Urine Bilirubin Negative, Urine Urobilinogen 4 H, Ur Leukocyte Esterase 100 H, Urine RBC 0 SEEN, Urine WBC 5-10 SEEN, Ur Squamous Epith Cells 0 SEEN, Amorphous Sediment 2+, Urine Bacteria 1+, Urine Mucus 0 SEEN 08/20/23 20:52: POC Glucose 156 H 08/21/23 04:10: POC Glucose 189 H 08/21/23 05:50: WBC 7.5, RBC 4.39 L, Hgb 13.2, Hct 40.1, MCV 91.3, MCH 30.1, MCHC 32.9, RDW Std Deviation 41.8, RDW Coeff of Marito 12.6, Plt Count 216, MPV 10.4, Immature Gran % (Auto) 0.300, Neut % (Auto) 60.4, Lymph % (Auto) 28.0, [place] % (Auto) 8.5, Eos % (Auto) 2.4, Baso % (Auto) 0.4, Absolute Neuts (auto) 4.6, Absolute Lymphs (auto) 2.11, Nucleated RBC % 0, Sodium 137, Potassium 3.7, Chloride 104, Carbon Dioxide 26.0, Anion Gap 7, BUN 18, Creatinine 0.98, Estim Creat Clear Calc 108.25, Est GFR (MDRD) Af Amer 104, Est GFR (MDRD) Non-Af 86, BUN/Creatinine Ratio 18.4, Glucose 199 H, Hemoglobin A1c 10.6 H, Calcium 8.0 L, Total Bilirubin 0.80, AST 38 H, ALT 96 H, Alkaline Phosphatase 58, Total Protein 6.3 L, Albumin 3.1 L, Globulin 3.2, Albumin/Globulin Ratio 1.0 Radiography Diagnostic Testing: Radiology Impression Venous Doppler Study 08/20/23 13:26 Interpretation Summary No evidence for acute deep venous thrombosis bilateral lower extremities with patent and compressible bilateral great saphenous veins. This examination was noted to be technically difficult secondary to body habitus Ordering Physician: Veronica Walls Referring Physician: Lupillo Gaytan Performed By: Noemi Stiles, FIGUEROA, RVT Chest X-Ray 08/20/23 19:20 IMPRESSION: No acute cardiopulmonary disease. Electronically Signed: Arelis Maxwell MD at 19:37 EST , Physical Exam Const alert, oriented x3 and no apparent distress General Appearance: cooperative, comfortable and well kempt HEENT normocephalic and head/scalp atraumatic Eyes EOMs intact bilaterally and conjunctivae normal Neck full ROM General: normal visual inspection Chest inspection of chest normal and palpation of chest normal Resp normal respiratory effort and normal air movement Cardio regular rate, regular rhythm and peripheral pulses 2+ throughout GI soft to palpation, non-tender and non-distended Back/Spine Back/Spine Narrative: Dressing clean dry and intact Cervical Spine: cervical ROM normal Thoracic Spine / Upper Back: normal to inspection Lumbar Spine / Lower Back: normal to inspection Extremity normal to inspection, full ROM, normal capillary refill and no calf tenderness Skin no rashes or lesions noted General Skin Exam: no breakdown Neuro oriented x3, CN's II-XII intact bilaterally, moves all extremities, no focal motor deficits, no sensory deficits noted and deep tendon reflexes 2+ bilaterally Motor Exam: muscle tone normal throughout Assessment & Plan Assessment/Plan (1) Cauda equina syndrome: (2) Lumbar stenosis: PLAN: Okay to transfer back to floor See orders Discharge planning
--- NOTE | 2023-08-21 11:49 | DS.PCM_ITS ---
Providers Date of Admission: 08/20/23 Primary Care Physician: CARLOS Ho Consultations 08/20/23 14:16 Consult: Hospitalist Routine Consulting Provider: Veronica Walls Reason for Consult: medical management EMERGENT Consult: No MD Notified: Yes Date Notified: 08/20/23 Time Notified: 14:17 Method of Notification: phone Reason For Visit: CAUDA EQUINA SYNDROME AND LUMBAR STENOSIS Diagnosis Discharge Diagnosis (1) Cauda equina syndrome: Status: Acute Code(s): G83.4 - Cauda equina syndrome (2) Lumbar stenosis: Status: Acute Code(s): M48.061 - Spinal stenosis, lumbar region without neurogenic claudication Plan: Okay to transfer back to floor See orders Discharge planning Medications at Discharge Home Medications lisinopril 10 mg tablet 10 mg PO QDAY #90 tabs 05/24/21 metformin 500 mg tablet,extended release 24hr (osmotic) 1,000 mg (2 x 500 mg) PO BID #360 tabs 03/15/22 oxycodone 5 mg capsule 5 mg PO Q4H PRN pain 2 days #8 caps 08/23/23 Hospital Course Operations - (L4 laminectomy decompression) Summary of Care Provided Minutes Spent on Discharge: 15 Hospital Course: The patient is a 53-year-old male who was transferred to [facility] from outside ER with intractable back pain and pain and weakness in the bilateral legs. He was subsequently determined to have severe lumbar stenosis with cauda equina syndrome. He underwent L4 laminectomy decompression on 08/21/2023. The hospitalist was consulted for medical management. The patient progressed well. His pain was controlled and he was mobilizing well. He was medically stable. He was subsequently discharged to SNF on 08/23/2023 to follow-up with Dr. Carpio in 3 weeks Physical Exam Const alert, oriented x3 and no apparent distress General Appearance: cooperative, comfortable and well kempt Neck full ROM General: normal visual inspection Chest inspection of chest normal and palpation of chest normal Resp normal respiratory effort and normal air movement Effort and Inspection: able to speak in complete sentences Cardio regular rate and peripheral pulses 2+ throughout GI soft to palpation, non-tender and non-distended Back/Spine Back/Spine Narrative: Dressing clean dry and intact. Incision well-approximated with interrupted sutures in place. No tenderness erythema drainage or fluctuance Cervical Spine: cervical ROM normal Thoracic Spine / Upper Back: normal to inspection Lumbar Spine / Lower Back: normal to inspection Extremity normal to inspection, full ROM, normal capillary refill and no calf tenderness Skin no rashes or lesions noted General Skin Exam: no breakdown Neuro oriented x3, CN's II-XII intact bilaterally, moves all extremities, no sensory deficits noted and deep tendon reflexes 2+ bilaterally Neuro Narrative: Examination of the lower extremities shows 5- out of 5 strength in bilateral hip flexion and knee extension. 4 out of 5 strength in bilateral ankle dorsiflexion, EHL. 4+ out of 5 strength in bilateral ankle plantarflexion Motor Exam: muscle tone normal throughout Weight / BMI Weight Weight: 334 lb 10.587 oz Body Mass Index (BMI) 40.7 ABG / Lab / Microbiology Data 08/23/23 07:11 08/23/23 07:11 Laboratory: Laboratory Results - last 24 hr 08/20/23 15:22: PT 14.0, INR 1.1, APTT 25.0, Sodium 136, Potassium 3.7, Chloride 103, Carbon Dioxide 28.0, Anion Gap 5, BUN 16, Creatinine 1.00, Estim Creat Clear Calc 106.09, Est GFR (MDRD) Af Amer 101, Est GFR (MDRD) Non-Af 84, BUN/Creatinine Ratio 16.1, Glucose 192 H, Hemoglobin A1c 10.5 H, Calcium 9.1, Magnesium 2.0 08/20/23 16:18: POC Glucose 231 H 08/20/23 18:20: Urine Color Yellow, Urine Clarity Sl. Cloudy, Urine pH 6.0, Ur Specific [place] 1.025, Urine Protein 30 H, Urine Glucose (UA) 1000 H, Urine Ket ones 15 H, Urine Occult Blood 250 H, Urine Nitrite Negative, Urine Bilirubin Negative, Urine Urobilinogen 4 H, Ur Leukocyte Esterase 100 H, Urine RBC 0 SEEN, Urine WBC 5-10 SEEN, Ur Squamous Epith Cells 0 SEEN, Amorphous Sediment 2+, Urine Bacteria 1+, Urine Mucus 0 SEEN 08/20/23 20:52: POC Glucose 156 H 08/21/23 04:10: POC Glucose 189 H 08/21/23 05:50: WBC 7.5, RBC 4.39 L, Hgb 13.2, Hct 40.1, MCV 91.3, MCH 30.1, MCHC 32.9, RDW Std Deviation 41.8, RDW Coeff of Marito 12.6, Plt Count 216, MPV 10.4, Immature Gran % (Auto) 0.300, Neut % (Auto) 60.4, Lymph % (Auto) 28.0, [place] % (Auto) 8.5, Eos % (Auto) 2.4, Baso % (Auto) 0.4, Absolute Neuts (auto) 4.6, Absolute Lymphs (auto) 2.11, Nucleated RBC % 0, Sodium 137, Potassium 3.7, Chloride 104, Carbon Dioxide 26.0, Anion Gap 7, BUN 18, Creatinine 0.98, Estim Creat Clear Calc 108.25, Est GFR (MDRD) Af Amer 104, Est GFR (MDRD) Non-Af 86, BUN/Creatinine Ratio 18.4, Glucose 199 H, Hemoglobin A1c 10.6 H, Calcium 8.0 L, Total Bilirubin 0.80, AST 38 H, ALT 96 H, Alkaline Phosphatase 58, Total Protein 6.3 L, Albumin 3.1 L, Globulin 3.2, Albumin/Globulin Ratio 1.0 Radiography Diagnostic Testing: Radiology Impression Venous Doppler Study 08/20/23 13:26 Interpretation Summary No evidence for acute deep venous thrombosis bilateral lower extremities with patent and compressible bilateral great saphenous veins. This examination was noted to be technically difficult secondary to body habitus Ordering Physician: Veronica Walls Referring Physician: Lupillo Gaytan Performed By: Noemi Stiles, FIGUEROA, RVT Chest X-Ray 08/20/23 19:20 IMPRESSION: No acute cardiopulmonary disease. Electronically Signed: Arelis Maxwell MD at 19:37 EST , D/C Instructions Discharge Diet: No restrictions Additional Activity Instructions: No repetitive bending twisting or lifting greater than 5 pounds Call your doctor if your incision/area has: Continuous Slow Oozing, Sudden Increased Bleeding, Increased Pain/ Swelling, Increased Redness, Foul Smelling Discharge and Swelling at the incision site Call your doctor if you observe: Fever of 101 or Higher, Coldness, Increased Pain, Numbness or Tingling, Change in Color, Inability to urinate, Inability to have a bowel movement, Using more than 1 pad per hour, Shortness of breath, Dizziness, Fainting spells, Swelling in the ankles, Chest pain, Prolonged hiccupping, Increased palpitations (irregular heartbeat), Calf discomfort and Uncontrolled pain Cleanse incision/area with: Do not get Incision Wet and Keep Dressing Clean & Dry Additional Dressing/Incision Instructions: Change dressing daily with iodine gauze and tape. Use waterproof dressing to shower Additional Instructions: 1. During your procedure, you received sedation through your IV. Please follow these instructions for the next 24 hours: Do not drive a motor vehicle, do not drink any alcoholic beverages, and do not sign any legal documents or make personal or business decisions. A responsible adult should stay with you at least 6 hours after the procedure. 2. Keep your surgical site/incision clean and the dressing dry and intact. You may use an ice pack at the surgical site to reduce any swelling or discomfort. 3. Monitor the incision site for any signs or symptoms of infection. Watch for redness, excessive swelling or drainage, or continued pain at the incision site after 3 days. Contact your physician immediately for a fever, chills or a temperature of 101.5? F or greater. 4. Take your medication exactly as prescribed by your physician. Do not attempt to wean yourself off any of your medications even though your pain is improving. This process needs to be carefully monitored by your doctor. Take any antibiotics prescribed exactly as directed and until they are gone. 5. Avoid stretching, bending, pulling, twisting or any sudden movements. Do not bend or twist at the waist. 6. No lifting greater than 5 pounds. 7. Do not operate a motor vehicle, equipment or a power tool while taking pain medication 8. Do not have any manipulation done by a chiropractor or any other physician without first consulting with the surgeon 9. Please contact our office if you are even scheduled for a CT scan or an MRI. 10. Please call us if you have any questions, problems or concerns. Please Follow Up With: Javier Carpio DO When: 3 weeks Meaningful Use Info Meaningful Use Diagnoses (Choose all that apply): None applicable Discharge Plan Admission Admit Date/Time: 08/20/23 14:16 Attending Provider: Tony Block Primary Care Provider: Lupillo Gaytan NP Consulting Providers: Javier Carpio; Veronica Walls Discharge Orders/Prescriptions Prescriptions: New oxycodone 5 mg capsule 5 mg PO Q4H PRN (Reason: pain) 2 Days Qty: 8 0RF Continued lisinopril 10 mg tablet 10 mg PO QDAY Qty: 90 3RF metformin 500 mg tablet extended release 24hr 1,000 mg PO BID Qty: 360 1RF Referrals / Follow Up: Javier Carpio DO [Med Staff - Active Staff] - In 1 Week Lupillo Gaytan NP, ACAD[employer]IC GUIDANCE SPECIALIST-C [Primary Care Provider] - Within 2 Weeks Disposition Disposition (needs filled in before D/C Order can be placed): [facility]
[2023-08-21 11:59] LABS: Bedside Glucose 157 mg/dL (74-106)
[2023-08-21] MEDS: Cefazolin 3 GM in 0.9% Normal Saline (100mL Bag) 100 ML IV (12:00)
[2023-08-21 12:17] LABS: Bedside Glucose 184 mg/dL (74-106)
--- NOTE | 2023-08-21 12:45 | RAD_ITS ---
STUDY: X-RAY - LUMBAR SPINE REASON FOR EXAM: Male, 53 years old. L4 laminectomy. 2 intraoperative digital images. TECHNIQUE: 2 intraoperative digital documentation view(s) of the lumbar spine were obtained. COMPARISON: None FINDINGS: Frontal and lateral views show localization device posteriorly. RAD/Lumbar Spine 2 or 3 Views IMPRESSION: Localization views. Electronically Signed: Justin Wallis MD at 15:39 EST ,
[2023-08-21] MEDS: THROMBIN (RECOMBINANT) 20,000 UNIT VIAL 20000 UNIT TOPICAL (12:59)
[2023-08-21] MEDS: Bupivacaine 0.25% 30 ML Vial (13:43)
[2023-08-21 15:05] LABS: Bedside Glucose 208 mg/dL (74-106)
--- NOTE | 2023-08-21 15:42 | CASEMGMT ---
ALICIA CAMP Assessment: Face to Face with pt for initial transition planning/care coordination assessment. RN ZOË introduced self and role at [facility], pt voices understanding and consents to assessment. Pt is A&O x4 and answers all questions appropriately at this time. Pt sitting up in bed in no distress with son, brother and at bedside. Pt agreeable to assessment with family present. Care providers, pharmacy, and demographics verified/updated. Admitting Dx:cauda equina syndrome and lumbar stenosis PCP:Lupillo Gaytan NP Specialists:lul Carpio [facility]acy:[facility] Insurance:Self pay Prescription Benefit: no LNOK:Brigido Gaitan, Living Arrangements: Pt lives with in a single story home with 5 steps to enter with a rail. Pt reports he has been slowly declining at home and the last two weeks has been needing assistance from and son for ADL and IADL's. Transportation: Pt drives self and denies concerns with transportation. Pt can transport pt if need be. DME:FWW and standard walker, BGM with sufficient supplies of strips and lancets. HHC/SNF:Denies hx of Pt states he would like to stay yet tonight. Therapy evals pending. Pt states no further concerns/needs. CM to follow. Advised pt to ask CM if any further question/concerns/needs arise, voices understanding. Pt Goal:Home Plan:TBD pending therapy evals
[2023-08-21 17:07] LABS: Bedside Glucose 244 mg/dL (74-106)
[2023-08-21] MEDS: Insulin Lispro 100 UNIT/ML INSULN.PEN SC ×2 (17:46→21:04)
[2023-08-21] MEDS: 0.9% Saline Lock 10 ML Syringe IV (21:01)
[2023-08-21] MEDS: Acetaminophen 325 MG Tablet 650 MG PO (21:02)
[2023-08-21 22:26] LABS: Bedside Glucose 247 mg/dL (74-106)
[2023-08-22] VITALS (7 sets, daily range): BP systolic 128–155; BP diastolic 75–81; PULSE 60–81; RESP 16–24; TEMP 36.5–37; O2SAT 93–97; BMI 40.7
[2023-08-22] MEDS: HYDROcodone Bitartrate/Apap 5/325 Tablet PO ×2 (04:34→14:53)
[2023-08-22] MEDS: Senna/Docusate Sodium 1 Tablet 2 TABLET PO (04:35)
[2023-08-22] MEDS: Insulin Lispro 100 UNIT/ML INSULN.PEN SC ×4 (06:50→20:53)
[2023-08-22 07:37] LABS: Absolute Lymphocyte Count 2.02 X10^3/uL (0.83-4.51); Basophil# 0.02 X10^3/uL; Basophil% 0.2 % (0-1); Eosinophil# 0.04 X10^3/uL; Eosinophils% 0.4 % (0-5); Hematocrit 37.3 % (40-54); Hemoglobin 12.3 g/dL (13.0-16.5); Lymphocyte # 2.02 X10^3/ul (0.83-4.51); Lymphocyte % 19.7 % (19-41); Mean Corpuscular Hgb 30.3 pg (27.0-32.0); Mean Corpuscular Volume 91.9 fL (80-94); Mean Platelet Vol. 10.6 fl (6.2-12.0); Monocyte# 1.11 X10^3/uL; Monocyte% 10.8 % (0-10); NRBC Flagged by Analyzer 0 % (0-5); Neutrophil # 7.03 X10^3/uL (2.7-7.7); Neutrophil % 68.4 % (47-70); Platelet Count 198 K/mm3 (150-450); RBC Distribution Width CV 12.4 % (11.6-14.6); RBC Distribution Width SD 41.5 fl (35.1-43.9); Red Blood Count 4.06 M/mm3 (4.6-6.2); White Blood Count 10.3 K/mm3 (4.4-11.0)
[2023-08-22 08:12] LABS: Bedside Glucose 204 mg/dL (74-106)
[2023-08-22 08:18] LABS: Anion Gap 6 (5-15); BUN 28 mg/dL (7-18); BUN/Creat Ratio 19.2 RATIO (10-20); Calcium,Total 8.6 mg/dL (8.5-10.1); Chloride 100 mmol/L (98-107); Creatinine, Serum 1.46 mg/dL (0.70-1.30); EST Glomerular Filtration Rate 54 mL/min (>60); Est Glom Filt Rate - Afr Amer 65 mL/min (>60); Estimated Creatinine Clearance 94.46 ml/min; Glucose 211 mg/dL (74-106); Magnesium 2.3 mg/dL (1.6-2.6); Phosphorus 4.4 mg/dL (2.5-4.9); Potassium 4.1 mmol/L (3.5-5.1); Sodium Level 133 mmol/L (136-145)
[2023-08-22] MEDS: Multivitamins,Ther W-Minerals Tablet 1 TABLET PO (08:32)
--- NOTE | 2023-08-22 09:01 | PN.HOSP_ITS ---
Reason for Visit Reason for Visit: Diagnoses Cauda equina syndrome (08/20/23) Spinal stenosis, lumbar region without neurogenic claudication (08/20/23) Subjective Subjective Patient underwent L4 laminectomy decompression and Bilateral L4-5 forami notomies plan is for patient to be discharged back orthopedic surgery Objective Data Objective Data Vital Signs: Vital Signs Temp Pulse Resp BP Pulse Ox O2 Del Method O2 Flow Rate 97.7 F L 80 16 133/75 H 96 Room Air 3 08/22/23 08:19 08/22/23 08:19 08/22/23 08:19 08/22/23 08:19 08/22/23 08:19 08/22/23 08:19 08/21/23 14:20 Oxygen Flow Rate (L/min) 3 Oxygen Delivery Method Room Air Weight: 151.9 kg Body Mass Index (BMI) 40.7 Intake & Output: Intake and Output for Last 24 Hours 08/20/23 08/21/23 08/22/23 23:59 23:59 23:59 Intake Total 400 / 900 2095 / 2095 1000 / 1000 Output Total 850 / 850 700 / 900 2225 / 2225 Balance -450 / 50 1395 / 1195 -1225 / -1225 Lab / Micro Data 08/22/23 06:45 08/22/23 06:45 Labs: Laboratory Results - last 24 hr 08/21/23 05:50: Hemoglobin A1c 10.6 H 08/21/23 11:04: POC Glucose 184 H 08/21/23 11:33: POC Glucose 157 H 08/21/23 14:46: POC Glucose 208 H 08/21/23 16:20: POC Glucose 244 H 08/21/23 21:00: POC Glucose 247 H 08/22/23 06:45: WBC 10.3, RBC 4.06 L, Hgb 12.3 L, Hct 37.3 L, MCV 91.9, MCH 30.3, MCHC 33.0, RDW Std Deviation 41.5, RDW Coeff of Marito 12.4, Plt Count 198, MPV 10.6, Immature Gran % (Auto) 0.500, Neut % (Auto) 68.4, Lymph % (Auto) 19.7, [place] % (Auto) 10.8 H, Eos % (Auto) 0.4, Baso % (Auto) 0.2, Absolute Neuts (auto) 7.0, Absolute Lymphs (auto) 2.02, Nucleated RBC % 0, Sodium 133 L, Potassium 4.1, Chloride 100, Carbon Dioxide 27.0, Anion Gap 6, BUN 28 H, Creatinine 1.46 H , Estim Creat Clear Calc 94.46, Est GFR (MDRD) Af Amer 65, Est GFR (MDRD) Non-Af 54 L, BUN/Creatinine Ratio 19.2, Glucose 211 H, Calcium 8.6, Phosphorus 4.4, Magnesium 2.3 08/22/23 06:48: POC Glucose 204 H Radiography Diagnostic Testing: Radiology Impression Lumbar Spine X-Ray 08/21/23 12:45 IMPRESSION: Localization views. Electronically Signed: Justin Wallis MD at 15:39 EST , Physical Exam Narrative GENERAL: cooperative HEENT: Atraumatic; normocephalic EYES; Anicteric, Normal Conjunctiva NECK; supple, normal thyroid, RESPIRATORY: Diminished to auscultation CARDIOVASCULAR: Regular S1 S2, GI: soft, normoactive bowel sounds, : No Renal angle tenderness; EXTREMITIES: Bilateral stasis dermatitis MUSCULOSKELETAL: no muscle wasting NEURO: Awake; no lateralizing signs. SKIN: No Rash PSYCH; Flat affect Assessment & Plan Assessment/Plan (1) Lumbar stenosis: PLAN: Plan Patient is a 53-year-old gentleman with past medical history single for obesity with BMI of 40 presented with acute low back pain with weakness in both lower extremities. MRI obtained at an outside hospital demonstrated severe central canal stenosis at L4-L5. Patient admitted to the services of orthopedic surgery?Dr. Carpio with plans for patient to undergo surgical intervention 1. Severe central canal stenosis at L4-L5 ? With signs and symptoms of cauda equinus syndrome. Patient has been admitted to the services of Dr. Sutton. Plans for patient to undergo decompression laminectomy ? 08/22/2023;Patient underwent L4 laminectomy decompression and Bilateral L4-5 foraminotomies on 08/21/2023 plan is for patient to be discharged back orthopedic surgery 2. History of DVT ? Involving the left lower extremity on 02/14/2022 following prolonged period of immobilization with 70 hours of driving 3. Class III obesity with BMI of 40.7 ? Complicating care weight loss advised 4. Diabetes mellitus type II -patient's oral hypoglycemics held. Placed on long acting insulin, Accu-Cheks a.c. and at bedtime and covered with sliding scale insulin 5. Hypertension - Blood pressure controlled, home medications continued with dose adjustment as needed 6. Dyslipidemia ? Per history currently not on any statin therapy 7. Chronic bilateral lower extremity deep edema ? Consult placed to wound care nurse 8. DVT prophylaxis ? SCDs for now with plans to initiate chemoprophylaxis following patient surgical intervention. Decision to start chemoprophylaxis will be deferred to patient orthopedic surgery Time spent in the patient's overall evaluation,decision-making process, review of diagnostic data, adjustment of management, discussion with other providers, nursing nursing and ancillary staff involved in patient's care documentation, 40 Minutes Charges/Coding Visit Charges Inpatient E&M: 36874 Subs Hosp L2
--- NOTE | 2023-08-22 09:41 | CASEMGMT ---
This RN CM to room to discuss DC planning. Pt is currently requiring 3x assist as of yesterday per PT. Pt states that he would be willing to accept HHC if possible. We will see how the pt does with therapy today to have a better understanding of his status. Pt is aware that he is self pay.
[2023-08-22] MEDS: Insulin Glargine-YFGN 100 UNIT/ML Pen 10 UNIT SC ×2 (10:26→20:53)
[2023-08-22] MEDS: Lisinopril 10 MG Tablet PO (10:27)
[2023-08-22] MEDS: Tamsulosin HCl 0.4 MG Capsule 0.400000000000000022 MG PO ×2 (10:27→20:54)
--- NOTE | 2023-08-22 11:22 | PN.ORTHO_ITS ---
Subjective Subjective Seen and examined postoperative day 1. Lying in bed resting comfortably. Pain minimal. Patient denies any acute numbness or tingling. His only complaint is persistent weakness in the lower extremities with continuing difficulty with ambulation. Objective Data Objective Data Vital Signs: Vital Signs Temp Pulse Resp BP Pulse Ox O2 Del Method O2 Flow Rate 97.7 F L 80 16 133/75 H 96 Room Air 3 08/22/23 08:19 08/22/23 08:19 08/22/23 08:19 08/22/23 08:19 08/22/23 08:19 08/22/23 08:19 08/21/23 14:20 Oxygen Flow Rate (L/min) 3 Oxygen Delivery Method Room Air Weight: 334 lb 14.115 oz Body Mass Index (BMI) 40.7 Intake & Output: Intake and Output for Last 24 Hours 08/20/23 08/21/23 08/22/23 23:59 23:59 23:59 Intake Total 400 / 900 2095 / 2095 1000 / 1000 Output Total 850 / 850 700 / 900 2225 / 2225 Balance -450 / 50 1395 / 1195 -1225 / -1225 Lab / Micro Data 08/22/23 06:45 08/22/23 06:45 Labs: Laboratory Results - last 24 hr 08/21/23 11:04: POC Glucose 184 H 08/21/23 11:33: POC Glucose 157 H 08/21/23 14:46: POC Glucose 208 H 08/21/23 16:20: POC Glucose 244 H 08/21/23 21:00: POC Glucose 247 H 08/22/23 06:45: WBC 10.3, RBC 4.06 L, Hgb 12.3 L, Hct 37.3 L, MCV 91.9, MCH 30.3, MCHC 33.0, RDW Std Deviation 41.5, RDW Coeff of Marito 12.4, Plt Count 198, MPV 10.6, Immature Gran % (Auto) 0.500, Neut % (Auto) 68.4, Lymph % (Auto) 19.7, [place] % (Auto) 10.8 H, Eos % (Auto) 0.4, Baso % (Auto) 0.2, Absolute Neuts (auto) 7.0, Absolute Lymphs (auto) 2.02, Nucleated RBC % 0, Sodium 133 L, Potassium 4.1, Chloride 100, Carbon Dioxide 27.0, Anion Gap 6, BUN 28 H, Creatinine 1.46 H , Estim Creat Clear Calc 94.46, Est GFR (MDRD) Af Amer 65, Est GFR (MDRD) Non-Af 54 L, BUN/Creatinine Ratio 19.2, Glucose 211 H, Calcium 8.6, Phosphorus 4.4, Magnesium 2.3 08/22/23 06:48: POC Glucose 204 H Radiography Diagnostic Testing: Radiology Impression Lumbar Spine X-Ray 08/21/23 12:45 IMPRESSION: Localization views. Electronically Signed: Justin Wallis MD at 15:39 EST Reading Location ID and State: [address] [place] [address] , Service support , Physical Exam Const alert, oriented x3 and no apparent distress General Appearance: cooperative, comfortable and well kempt Neck full ROM General: normal visual inspection Chest inspection of chest normal and palpation of chest normal Resp normal respiratory effort and normal air movement Effort and Inspection: able to speak in complete sentences Cardio regular rate and peripheral pulses 2+ throughout GI soft to palpation, non-tender and non-distended Back/Spine Back/Spine Narrative: Dressing clean dry and intact. Cervical Spine: cervical ROM normal Thoracic Spine / Upper Back: normal to inspection Lumbar Spine / Lower Back: normal to inspection Extremity normal to inspection, full ROM, normal capillary refill and no calf tenderness Skin no rashes or lesions noted General Skin Exam: no breakdown Neuro oriented x3, CN's II-XII intact bilaterally, moves all extremities, no focal motor deficits, no sensory deficits noted and deep tendon reflexes 2+ bilaterally Neuro Narrative: Examination of the lower extremity shows 4+ out of 5 strength in bilateral hip flexion and knee extension. 3+ out of 5 strength in bilateral dorsiflexion and EHL. 4+ out of 5 strength in bilateral plantarflexion Motor Exam: muscle tone normal throughout Assessment & Plan Assessment/Plan (1) Lumbar stenosis: PLAN: I had a lengthy discussion with the patient. He is doing well postop. He will likely need rehab placement secondary to deconditioning. Okay to sign off from a spine surgery point of view. Daily dressing changes. Suture removal in 3 weeks. Recommend transferring admission to the hospitalist for further medical management until rehab placement. He understands and agrees with the tr eatment plan
[2023-08-22 12:16] LABS: Bedside Glucose 222 mg/dL (74-106)
--- NOTE | 2023-08-22 12:19 | CASEMGMT ---
Social Work SW met with pt to discuss advance directives.? Pt states he has never completed a HCPOA or living will. SW educated pt to documents and that SW can assist pt in completing. Pt denies desire to complete at this time. SHABANA Mayberry
--- NOTE | 2023-08-22 12:21 | CASEMGMT ---
Social Work SW spoke with PT, OT and physician. Pt will require short term rehab prior to return home. SIRIA met with pt and introduced self and role of SW. Pt acknowledging that he cannot return home at this time and will need short term rehab at a SNF. Pt does not have health insurance. Pt states that [facility] was in earlier today and assessed pt for Medicaid eligibility and completed paperwork. A list of SNF providers including quality and resource use data and consistent with the patient?s preferred geographic region, medical needs, and insurance network were provided from the [facility] Guide. Pt preferences are [facility]. [facility] 2. [facility]. Phone call to Nicolette at [facility]. Medicaid Application has been submitted to [employer]. Once Nicolette obtains a pending number, it will provided to SIRIA. ID assistant tennis professional updated and will send referrals. Plan: [facility], pending acceptance and level of care SHABANA Mayberry
--- NOTE | 2023-08-22 12:22 | CASEMGMT ---
Discharge Planning A list of?SNF providers including quality and resource use data and consistent with the patient's preferred geographic region, medical needs, and insurance network was created in [facility] Guide.? This list was provided to the SW. Roselyn Garcia Discharge Planning Asst.
--- NOTE | 2023-08-22 12:38 | CASEMGMT ---
Addendum entered by Roselyn Garcia 08/22/23 15:24: Patient has been accepted by [facility] and declined by [facility]. Patient wishes to proceed with [facility]. SW updated. Roselyn Garcia, Discharge Planning Asst. Original Note: Discharge Planning SNf referrals sent via [facility] to [facility] and [facility]. Roselyn Garcia, Discharge Planning Asst.
--- NOTE | 2023-08-22 15:17 | NURSING ---
reviewed student charting
[2023-08-22 17:05] LABS: Bedside Glucose 184 mg/dL (74-106)
[2023-08-22] MEDS: Menthol/Lanolin/Calamine/Znox 113 GM Tube 1 APPLIC TOPICAL (20:54)
[2023-08-22 22:23] LABS: Bedside Glucose 203 mg/dL (74-106)
[2023-08-22] MEDS: Ondansetron 4 MG/2 ML Vial IV (23:40)
[2023-08-22] MEDS: Acetaminophen 325 MG Tablet 650 MG PO (23:47)
[2023-08-23 02:12] VITALS: BP 152/75; PULSE 86; RESP 24; TEMP 36.8; O2SAT 95
[2023-08-23] MEDS: proCHLORPERazine 10 MG/2 ML Vial 5 MG IV (02:15)
[2023-08-23] MEDS: Senna/Docusate Sodium 1 Tablet 2 TABLET PO ×2 (02:19→08:40)
[2023-08-23 04:57] VITALS: BMI 40.6
[2023-08-23] MEDS: Insulin Lispro 100 UNIT/ML INSULN.PEN SC ×3 (05:58→16:49)
[2023-08-23 07:19] LABS: Bedside Glucose 195 mg/dL (74-106)
[2023-08-23 07:36] LABS: Absolute Lymphocyte Count 1.53 X10^3/uL (0.83-4.51); Absolute Neutrophil Count 6.5 X10^3/uL (2.0-7.7); Basophil# 0.02 X10^3/uL; Basophil% 0.2 % (0-1); Eosinophil# 0.03 X10^3/uL; Eosinophils% 0.3 % (0-5); Hematocrit 38.7 % (40-54); Hemoglobin 12.8 g/dL (13.0-16.5); Lymphocyte # 1.53 X10^3/ul (0.83-4.51); Lymphocyte % 16.9 % (19-41); Mean Corp Hgb Conc 33.1 g/dL (32-36); Mean Corpuscular Hgb 29.9 pg (27.0-32.0); Mean Corpuscular Volume 90.4 fL (80-94); Mean Platelet Vol. 10.3 fl (6.2-12.0); Monocyte# 0.92 X10^3/uL; Monocyte% 10.2 % (0-10); NRBC Flagged by Analyzer 0 % (0-5); Neutrophil # 6.51 X10^3/uL (2.7-7.7); Neutrophil % 72.1 % (47-70); Platelet Count 187 K/mm3 (150-450); RBC Distribution Width CV 12.7 % (11.6-14.6); RBC Distribution Width SD 42.1 fl (35.1-43.9); Red Blood Count 4.28 M/mm3 (4.6-6.2)
[2023-08-23 07:57] LABS: Anion Gap 8 (5-15); BUN 24 mg/dL (7-18); BUN/Creat Ratio 24.1 RATIO (10-20); Calcium,Total 8.8 mg/dL (8.5-10.1); Chloride 102 mmol/L (98-107); EST Glomerular Filtration Rate 84 mL/min (>60); Est Glom Filt Rate - Afr Amer 101 mL/min (>60); Estimated Creatinine Clearance 137.77 ml/min; Glucose 203 mg/dL (74-106); Potassium 3.9 mmol/L (3.5-5.1); Sodium Level 134 mmol/L (136-145)
[2023-08-23 08:13] VITALS: BP 139/75; PULSE 76; RESP 16; TEMP 37.1; O2SAT 94
[2023-08-23] MEDS: Multivitamins,Ther W-Minerals Tablet 1 TABLET PO (08:41)
--- NOTE | 2023-08-23 08:54 | PCM.PN.HOSP ---
Reason for Visit Reason for Visit: Diagnoses Cauda equina syndrome (08/20/23) Spinal stenosis, lumbar region without neurogenic claudication (08/20/23) Subjective Subjective Patient seen has been tolerating physical therapy. Plan is for patient to be transferred to a senior living facility for rehab pending Medicaid number approval Objective Data Objective Data Vital Signs: Vital Signs Temp Pulse Resp BP Pulse Ox O2 Del Method O2 Flow Rate 98.7 F 76 16 139/75 H 94 Room Air 3 08/23/23 08:13 08/23/23 08:13 08/23/23 08:13 08/23/23 08:13 08/23/23 08:13 08/23/23 08:13 08/21/23 14:20 Oxygen Flow Rate (L/min) 3 Oxygen Delivery Method Room Air Weight: 151.6 kg Body Mass Index (BMI) 40.6 Intake & Output: Intake and Output for Last 24 Hours 08/21/23 08/22/23 08/23/23 23:59 23:59 23:59 Intake Total 2095 / 2095 1999 / 1999 1574.75 / 1574.75 Output Total 700 / 900 5700 / 5700 1000 / 1000 Balance 1395 / 1195 -3700 / -3700 574.75 / 574.75 Lab / Micro Data 08/23/23 07:11 08/23/23 07:11 Labs: Laboratory Results - last 24 hr 08/22/23 11:32: POC Glucose 222 H 08/22/23 16:41: POC Glucose 184 H 08/22/23 20:52: POC Glucose 203 H 08/23/23 05:57: POC Glucose 195 H 08/23/23 07:11: WBC 9.0, RBC 4.28 L, Hgb 12.8 L, Hct 38.7 L, MCV 90.4, MCH 29.9, MCHC 33.1, RDW Std Deviation 42.1, RDW Coeff of Marito 12.7, Plt Count 187, MPV 10.3, Immature Gran % (Auto) 0.300, Neut % (Auto) 72.1 H, Lymph % (Auto) 16.9 L, [place] % (Auto) 10.2 H, Eos % (Auto) 0.3, Baso % (Auto) 0.2, Absolute Neuts (auto) 6.5, Absolute Lymphs (auto) 1.53, Nucleated RBC % 0, Sodium 134 L, Potassium 3.9, Chloride 102, Carbon Dioxide 24.0, Anion Gap 8, BUN 24 H, Creatinine 1.00, Estim Creat Clear Calc 137.77, Est GFR (MDRD) Af Amer 101, Est GFR (MDRD) Non-Af 84, BUN/Creatinine Ratio 24.1 H, Glucose 203 H, Calcium 8.8 Physical Exam Narrative GENERAL: cooperative HEENT: Atraumatic; normocephalic EYES; Anicteric, Normal Conjunctiva NECK; supple, normal thyroid, RESPIRATORY: Diminished to auscultation CARDIOVASCULAR: Regular S1 S2, GI: soft, normoactive bowel sounds, : No Renal angle tenderness; EXTREMITIES: Bilateral stasis dermatitis MUSCULOSKELETAL: no muscle wasting NEURO: Awake; no lateralizing signs. SKIN: No Rash PSYCH; Flat affect Assessment & Plan Assessment/Plan (1) Lumbar stenosis: PLAN: Plan Patient is a 53-year-old gentleman with past medical history single for obesity with BMI of 40 presented with acute low back pain with weakness in both lower extremities. MRI obtained at an outside hospital demonstrated severe central canal stenosis at L4-L5. Patient admitted to the services of orthopedic surgery?Dr. Carpio with plans for patient to undergo surgical intervention 1. Severe central canal stenosis at L4-L5 ? With signs and symptoms of cauda equinus syndrome. Patient has been admitted to the services of Dr. Sutton. Plans for patient to undergo decompression laminectomy ? 08/22/2023;Patient underwent L4 laminectomy decompression and Bilateral L4-5 foraminotomies on 08/21/2023 plan is for patient to be discharged back orthopedic surgery ? 08/23/2023;Patient seen has been tolerating physical therapy. Plan is for patient to be transferred to a senior living facility for rehab pending Medicaid number approval 2. History of DVT ? Involving the left lower extremity on 02/14/2022 following prolonged period of immobilization with 70 hours of driving 3. Class III obesity with BMI of 40.7 ? Complicating care weight loss advised 4. Diabetes mellitus type II -patient's oral hypoglycemics held. Placed on long acting insulin, Accu-Cheks a.c. and at bedtime and covered with sliding scale insulin 5. Hypertension - Blood pressure controlled, home medications continued with dose adjustment as needed 6. Dyslipidemia ? Per history currently not on any statin therapy 7. Chronic bilateral lower extremity deep edema ? Consult placed to wound care nurse 8. DVT prophylaxis ? SCDs for now with plans to initiate chemoprophylaxis following patient surgical intervention. Decision to start chemoprophylaxis will be deferred to patient orthopedic surgery 9. Physical deconditioning - Requested for PT OT eval and clinical social work therapist to assist with discharge planning Time spent in the patient's overall evaluation,decision-making process, review of diagnostic data, adjustment of management, discussion with other providers, nursing nursing and ancillary staff involved in patient's care documentation, 35 Minutes Charges/Coding Visit Charges Inpatient E&M: 36149 Subs Hosp L2
--- NOTE | 2023-08-23 11:05 | PCM.PN.ORT ---
Subjective Subjective Patient seen and examined postop day 2 status post L4 laminectomy. Patient is lying in bed resting comfortably. Pain minimal. No numbness tingling. Patient still complains of weakness in the legs and difficulty with ambulation. He has been up minimally with assistance. Discharge plan for rehab placement Objective Data Objective Data Vital Signs: Vital Signs Temp Pulse Resp BP Pulse Ox O2 Del Method O2 Flow Rate 98.7 F 76 16 139/75 H 94 Room Air 3 08/23/23 08:13 08/23/23 08:13 08/23/23 08:13 08/23/23 08:13 08/23/23 08:13 08/23/23 08:13 08/21/23 14:20 Oxygen Flow Rate (L/min) 3 Oxygen Delivery Method Room Air Weight: 334 lb 3.532 oz Body Mass Index (BMI) 40.6 Intake & Output: Intake and Output for Last 24 Hours 08/21/23 08/22/23 08/23/23 23:59 23:59 23:59 Intake Total 2095 / 2095 1999 / 1999 1574.75 / 1574.75 Output Total 700 / 900 5700 / 5700 1000 / 1000 Balance 1395 / 1195 -3700 / -3700 574.75 / 574.75 Lab / Micro Data 08/23/23 07:11 08/23/23 07:11 Labs: Laboratory Results - last 24 hr 08/22/23 11:32: POC Glucose 222 H 08/22/23 16:41: POC Glucose 184 H 08/22/23 20:52: POC Glucose 203 H 08/23/23 05:57: POC Glucose 195 H 08/23/23 07:11: WBC 9.0, RBC 4.28 L, Hgb 12.8 L, Hct 38.7 L, MCV 90.4, MCH 29.9, MCHC 33.1, RDW Std Deviation 42.1, RDW Coeff of Marito 12.7, Plt Count 187, MPV 10.3, Immature Gran % (Auto) 0.300, Neut % (Auto) 72.1 H, Lymph % (Auto) 16.9 L, [place] % (Auto) 10.2 H, Eos % (Auto) 0.3, Baso % (Auto) 0.2, Absolute Neuts (auto) 6.5, Absolute Lymphs (auto) 1.53, Nucleated RBC % 0, Sodium 134 L, Potassium 3.9, Chloride 102, Carbon Dioxide 24.0, Anion Gap 8, BUN 24 H, Creatinine 1.00, Estim Creat Clear Calc 137.77, Est GFR (MDRD) Af Amer 101, Est GFR (MDRD) Non-Af 84, BUN/Creatinine Ratio 24.1 H, Glucose 203 H, Calcium 8.8 Physical Exam Const alert, oriented x3 and no apparent distress General Appearance: cooperative, comfortable and well kempt Neck full ROM Resp normal respiratory effort and normal air movement Effort and Inspection: able to speak in complete sentences Cardio regular rate and peripheral pulses 2+ throughout GI soft to palpation, non-tender and non-distended Back/Spine Back/Spine Narrative: Dressing clean dry and intact Cervical Spine: cervical ROM normal Thoracic Spine / Upper Back: normal to inspection Lumbar Spine / Lower Back: normal to inspection Extremity normal to inspection, full ROM, normal capillary refill and no calf tenderness Skin no rashes or lesions noted General Skin Exam: no breakdown Neuro oriented x3, CN's II-XII intact bilaterally, moves all extremities, no focal motor deficits and no sensory deficits noted Neuro Narrative: 4+ out of 5 strength in bilateral hip flexion and knee extension. 3 out of 5 strength in bilateral dorsiflexion and EHL. 4+ out of 5 strength in bilateral ankle plantarflexion Motor Exam: muscle tone normal throughout Assessment & Plan Assessment/Plan (1) Lumbar stenosis: PLAN: I had a lengthy discussion with the patient. He is doing well status post L4 laminectomy. He continues to have weakness in the legs with difficulty with ambulation so discharge planning for rehab placement. Okay to discharge from spine surgery point of view when arrangements made. Follow-up with Dr. Carpio in 3 weeks for suture removal.
[2023-08-23] MEDS: Tamsulosin HCl 0.4 MG Capsule 0.400000000000000022 MG PO (11:06)
[2023-08-23] MEDS: Insulin Glargine-YFGN 100 UNIT/ML Pen 10 UNIT SC (11:06)
[2023-08-23] MEDS: Lisinopril 10 MG Tablet PO (11:07)
[2023-08-23 11:58] LABS: Bedside Glucose 223 mg/dL (74-106)
--- NOTE | 2023-08-23 12:08 | TREXTCAR_ITS ---
Diet Diet Order/Speech Therapy: 08/21/23 16:14 Diet: Carbohydrate Controlled Dietary Modifications:: Cardiac / Heart Healthy Is pt able to select menu?: Yes Routine Orders/Code Status Code Status: Full Code Wound(s) scattered scabs throughout: Wound Type: scabs throughout BACK: Wound Type: Surgical Incision R foot, great toe: Wound Type: Abrasion Therapies Physical Therapy: Eval and Treat Occupational Therapy: Eval and Treat Problem/Diagnosis (1) Lumbar stenosis: Status: Acute Code(s): M48.061 - Spinal stenosis, lumbar region without neurogenic claudication Plan Patient is a 53-year-old gentleman with past medical history single for obesity with BMI of 40 presented with acute low back pain with weakness in both lower extremities. MRI obtained at an outside hospital demonstrated severe central canal stenosis at L4-L5. Patient admitted to the services of orthopedic s aleksandr?Dr. Carpio with plans for patient to undergo surgical intervention 1. Severe central canal stenosis at L4-L5 ? With signs and symptoms of cauda equinus syndrome. Patient has been admitted to the services of Dr. Sutton. Plans for patient to undergo decompression laminectomy ? 08/22/2023;Patient underwent L4 laminectomy decompression and Bilateral L4-5 foraminotomies on 08/21/2023 plan is for patient to be discharged back orthopedic surgery ? 08/23/2023;Patient seen has been tolerating physical therapy. Plan is for patient to be transferred to a assisted facility for rehab pending [place] ed[place] number approval 2. History of DVT ? Involving the left lower extremity on 02/14/2022 following prolonged period of immobilization with [address] hours of [address] 3. Class III obesity with BMI of 40.7 ? Complicating care weight loss advised 4. Diabetes mellitus type II -patient's oral hypoglycemics held. Placed on long acting insulin, Accu-Cheks a.c. and at bedtime and covered with sliding scale insulin 5. Hypertension - Blood pressure controlled, home medications continued with dose adjustment as needed 6. Dyslipidemia ? Per history currently not on any statin therapy 7. Chronic bilateral lower extremity deep edema ? Consult placed to wound care nurse 8. DVT prophylaxis ? SCDs for now with plans to initiate chemoprophylaxis following patient surgical intervention. Decision to start chemoprophylaxis will be deferred to patient orthopedic surgery 9. Physical deconditioning - Requested for PT OT eval and social services counselor to assist with discharge planning Time spent in the patient's overall evaluation,decision-making process, review of diagnostic data, adjustment of management, discussion with other providers, nursing nursing and ancillary staff involved in patient's care documentation, 35 Minutes Allergies/Procedures Done in Hospital Allergies No Known Allergies Allergy (Unverified 03/15/22 13:43) Procedures: None Type of Care/Length of Stay Estimated LOS: Convalescent Care Less Than 30 days Type of Care Needed: Skilled Rehab Potential: Good Prognosis: Good Additional Orders/Day of Discharge Day of Discharge: 08/23/23 Dietary and Speech Recommendations Dietitian Recommendations/Changes: Advance diet as tolerated s/p procedure to 2000 calorie/consistent carbohydrate; cardiac. Encouraged to call RD as needed with diet/nutrition questions and concerns. Follow Up Care Please Follow Up With: Javier Carpio DO Discharge Plan Admission Admit Date/Time: 08/20/23 14:16 Attending Provider: Tony Block Primary Care Provider: Lupillo Gaytan NP Consulting Providers: Javier Carpio; Veronica Walls Discharge Orders/Prescriptions Prescriptions: New hydrocodone-acetaminophen 5-325 mg tablet 1 tab PO Q6H PRN (Reason: pain) 7 Days Qty: 28 0RF Continued lisinopril 10 mg tablet 10 mg PO QDAY Qty: 90 3RF metformin 500 mg tablet extended release 24hr 1,000 mg PO BID Qty: 360 1RF Referrals / Follow Up: Javier Carpio DO [Med Staff - Active Staff] - In 1 Week Lupillo Gaytan NP, SENSOR TECHNICIAN-C [Primary Care Provider] - Within 2 Weeks Disposition Disposition (needs filled in before D/C Order can be placed): [facility]
--- NOTE | 2023-08-23 12:25 | CASEMGMT ---
Addendum entered by Lauren Headley 08/23/23 15:45: Level of Care returned. Pt can admit to [facility] today. Dr. Block and Dr. Carpio notified. Pt is ready for dc today. DC hygiene assistant notified and to complete dc. Disposition: [facility], intermediate level of care SHABANA Mayberry Original Note: Social Work SW spoke with [facility] and pending medicaid number is [id number]. 7000 exemption form completed in [employer] and submitted to [facility] for Level of Care request. Once level of care is returned, pt can admit to [facility]. Plan: [facility], pending LOC SHABANA Mayberry
[2023-08-23 15:09] VITALS: BP 145/73; PULSE 72; RESP 16; TEMP 36.6; O2SAT 96
--- NOTE | 2023-08-23 15:42 | PCM.DC.SUM ---
Providers Date of Admission: 08/20/23 Date of Discharge: 08/23/23 Primary Care Physician: CARLOS Ho Consultations 08/20/23 14:16 Consult: Hospitalist Routine Consulting Provider: Veronica Walls Reason for Consult: medical management EMERGENT Consult: No MD Notified: Yes Date Notified: 08/20/23 Time Notified: 14:17 Method of Notification: phone Reason For Visit: CAUDA EQUINA SYNDROME AND LUMBAR STENOSIS Diagnosis Discharge Diagnosis (1) Lumbar stenosis: Status: Acute Code(s): M48.061 - Spinal stenosis, lumbar region without neurogenic claudication Plan Patient is a 53-year-old gentleman with past medical history single for obesity with BMI of 40 presented with acute low back pain with weakness in both lower extremities. MRI obtained at an outside hospital demonstrated severe central canal stenosis at L4-L5. Patient admitted to the services of orthopedic surgery?Dr. Carpio with plans for patient to undergo surgical intervention 1. Severe central canal stenosis at L4-L5 ? With signs and symptoms of cauda equinus syndrome. Patient has been admitted to the services of Dr. Sutton. Plans for patient to undergo decompression laminectomy ? 08/22/2023;Patient underwent L4 laminectomy decompression and Bilateral L4-5 foraminotomies on 08/21/2023 plan is for patient to be discharged back orthopedic surgery ? 08/23/2023;Patient seen has been tolerating physical therapy. Plan is for patient to be transferred to a half-way facility for rehab pending Medicaid number approval 2. History of DVT ? Involving the left lower extremity on 02/14/2022 following prolonged period of immobilization with 70 hours of driving 3. Class III obesity with BMI of 40.7 ? Complicating care weight loss advised 4. Diabetes mellitus type II -patient's oral hypoglycemics held. Placed on long acting insulin, Accu-Cheks a.c. and at bedtime and covered with sliding scale insulin 5. Hypertension - Blood pressure controlled, home medications continued with dose adjustment as needed 6. Dyslipidemia ? Per history currently not on any statin therapy 7. Chronic bilateral lower extremity deep edema ? Consult placed to wound care nurse 8. DVT prophylaxis ? SCDs for now with plans to initiate chemoprophylaxis following patient surgical intervention. Decision to start chemoprophylaxis will be deferred to patient orthopedic surgery 9. Physical deconditioning - Requested for PT OT eval and manager social media to assist with discharge planning Time spent in the patient's overall evaluation,decision-making process, review of diagnostic data, adjustment of management, discussion with other providers, nursing nursing and ancillary staff involved in patient's care documentation, 35 Minutes Medications at Discharge Home Medications lisinopril 10 mg tablet 10 mg PO QDAY #90 tabs 05/24/21 metformin 500 mg tablet,extended release 24hr (osmotic) 1,000 mg (2 x 500 mg) PO BID #360 tabs 03/15/22 oxycodone 5 mg capsule 5 mg PO Q4H PRN pain 2 days #8 caps 08/23/23 Hospital Course Summary of Care Provided Minutes Spent on Discharge: 35 Physical Exam Narrative GENERAL: cooperative HEENT: Atraumatic; normocephalic EYES; Anicteric, Normal Conjunctiva NECK; supple, normal thyroid, RESPIRATORY: Diminished to auscultation CARDIOVASCULAR: Regular S1 S2, GI: soft, normoactive bowel sounds, : No Renal angle tenderness; EXTREMITIES: Bilateral stasis dermatitis MUSCULOSKELETAL: no muscle wasting NEURO: Awake; no lateralizing signs. SKIN: No Rash PSYCH; Flat affect Weight / BMI Weight Weight: 151.6 kg Body Mass Index (BMI) 40.6 ABG / Lab / Microbiology Data 08/23/23 07:11 08/23/23 07:11 Laboratory: Laboratory Results - last 24 hr 08/22/23 16:41: POC Glucose 184 H 08/22/23 20:52: POC Glucose 203 H 08/23/23 05:57: POC Glucose 195 H 08/23/23 07:11: WBC 9.0, RBC 4.28 L, Hgb 12.8 L, Hct 38.7 L, MCV 90.4, MCH 29.9, MCHC 33.1, RDW Std Deviation 42.1, RDW Coeff of Marito 12.7, Plt Count 187, MPV 10.3, Immature Gran % (Auto) 0.300, Neut % (Auto) 72.1 H, Lymph % (Auto) 16.9 L, [place] % (Auto) 10.2 H, Eos % (Auto) 0.3, Baso % (Auto) 0.2, Absolute Neuts (auto) 6.5, Absolute Lymphs (auto) 1.53, Nucleated RBC % 0, Sodium 134 L, Potassium 3.9, Chloride 102, Carbon Dioxide 24.0, Anion Gap 8, BUN 24 H, Creatinine 1.00, Estim Creat Clear Calc 137.77, Est GFR (MDRD) Af Amer 101, Est GFR (MDRD) Non-Af 84, BUN/Creatinine Ratio 24.1 H, Glucose 203 H, Calcium 8.8 08/23/23 11:41: POC Glucose 223 H D/C Instructions Discharge Diet: 1800 Calorie Control Diet Discharge Activity: Return to Normal Activity Additional Activity Instructions: No repetitive bending twisting or lifting greater than 5 pounds Call your doctor if your incision/area has: Continuous Slow Oozing, Sudden Increased Bleeding, Increased Pain/ Swelling, Increased Redness, Foul Smelling Discharge and Swelling at the incision site Call your doctor if you observe: Fever of 101 or Higher, Coldness, Increased Pain, Numbness or Tingling, Change in Color, Inability to urinate, Inability to have a bowel movement, Using more than 1 pad per hour, Shortness of breath, Dizziness, Fainting spells, Swelling in the ankles, Chest pain, Prolonged hiccupping, Increased palpitations (irregular heartbeat), Calf discomfort and Uncontrolled pain Cleanse incision/area with: Do not get Incision Wet and Keep Dressing Clean & Dry Additional Dressing/Incision Instructions: Change dressing daily with iodine gauze and tape. Use waterproof dressing to shower Additional Instructions: 1. During your procedure, you received sedation through your IV. Please follow these instructions for the next 24 hours: Do not drive a motor vehicle, do not drink any alcoholic beverages, and do not sign any legal documents or make personal or business decisions. A responsible adult should stay with you at least 6 hours after the procedure. 2. Keep your surgical site/incision clean and the dressing dry and intact. You may use an ice pack at the surgical site to reduce any swelling or discomfort. 3. Monitor the incision site for any signs or symptoms of infection. Watch for redness, excessive swelling or drainage, or continued pain at the incision site after 3 days. Contact your physician immediately for a fever, chills or a temperature of 101.5? F or greater. 4. Take your medication exactly as prescribed by your physician. Do not attempt to wean yourself off any of your medications even though your pain is improving. This process needs to be carefully monitored by your doctor. Take any antibiotics prescribed exactly as directed and until they are gone. 5. Avoid stretching, bending, pulling, twisting or any sudden movements. Do not bend or twist at the waist. 6. No lifting greater than 5 pounds. 7. Do not operate a motor vehicle, equipment or a power tool while taking pain medication 8. Do not have any manipulation done by a chiropractor or any other physician without first consulting with the surgeon 9. Please contact our office if you are even scheduled for a CT scan or an MRI. 10. Please call us if you have any questions, problems or concerns. Please Follow Up With: Javier Carpio DO When: 3 weeks Meaningful Use Info Meaningful Use Diagnoses (Choose all that apply): None applicable Discharge Plan Admission Admit Date/Time: 08/20/23 14:16 Attending Provider: Tony Block Primary Care Provider: Lupillo Gaytan NP Consulting Providers: Javier Carpio; Veronica Walls Discharge Orders/Prescriptions Prescriptions: New oxycodone 5 mg capsule 5 mg PO Q4H PRN (Reason: pain) 2 Days Qty: 8 0RF Continued lisinopril 10 mg tablet 10 mg PO QDAY Qty: 90 3RF metformin 500 mg tablet extended release 24hr 1,000 mg PO BID Qty: 360 1RF Referrals / Follow Up: Javier Carpio DO [Med Staff - Active Staff] - In 1 Week Lupillo Gaytan NP, INTERCHANGE AGENT-C [Primary Care Provider] - Within 2 Weeks Disposition Disposition (needs filled in before D/C Order can be placed): [facility] Charges/Coding Visit Charges Inpatient E&M: 27051 Disch Hosp >30min
--- NOTE | 2023-08-23 16:25 | CASEMGMT ---
Discharge Planning Discharge orders, signed med list, and transport time sent to [facility] via [facility]. [facility] will transport patient by cot at 6:30p. Nursing, SW, and patient updated. Patient stated that he will update family. Roselyn Garcia, Discharge Planning Asst.
[2023-08-23 19:34] LABS: Bedside Glucose 202 mg/dL (74-106)
== END 2023-08-23 19:12 | disposition skilled nursing facility (03) | DRG 516 ==
PROVIDERS: Anesthesiology; Family Medicine; Admitting Provider Orthopaedic Surgery; PCP Nurse Practitioner Family; Visit Provider Internal Medicine
PROC: 01NB0ZZ Release Lumbar Nerve, Open Approach (ICD-10-PCS; CPT 63030; principal; 2023-08-21 12:15)
DX: M48.061 Spinal stenosis, lumbar region without neurogenic claudication (principal); G83.4 Cauda equina syndrome; Z68.41 Body mass index [BMI] 40.0-44.9, adult; E11.65 Type 2 diabetes mellitus with hyperglycemia; E66.01 Morbid (severe) obesity due to excess calories; E78.5 Hyperlipidemia, unspecified; L03.031 Cellulitis of right toe; I10 Essential (primary) hypertension; I89.0 Lymphedema, not elsewhere classified; M51.36 Other intervertebral disc degeneration, lumbar region; M47.816 Spondylosis without myelopathy or radiculopathy, lumbar region; R53.81 Other malaise; Z86.718 Personal history of other venous thrombosis and embolism; R60.0 Localized edema
CPT/HCPCS: 36415; 71045; 72100; 76000; 80048; 80053; 81001; 82962; 83036; 83735; 84100; 85025; 85610; 85730; 93005; 93970; 94668; 97110; 97162; 97166; 97530; 97535; 97802; 97803; 99252; J7030; J7120; A4216; G0463; J2405